=== PATIENT | male | born 1950 | race Caucasian/White ===

== ENCOUNTER → 2016-05-29 | Outpatient (CLI) | payer BC ==
--- NOTE | 2016-05-29 13:50 | REP ---
Urinary tract sonography: History: Calculus of the kidney. Comparison is made with CT abdomen and pelvis from February 02, 2016. Sonographic findings: Scanning at the level of the urinary bladder shows smooth bladder johnson. Prostate appears somewhat prominent and heterogeneous. There are dystrophic calcifications seen in the prostate on the prior CT. Echogenic foci are seen corresponding to these sonographically. By ultrasound, prostate measures 3.8 x 3.0 x 5.3 cm. Bladder johnson are slightly trabeculated. There is no evidence of hydronephrosis. Renal cortical echogenicity pattern is normal bilaterally. No renal mass lesion is seen. Incidental note is made of three cysts in the lower aspect of the right lobe of the liver. The largest of these measures 2.4 x 2.8 x 2.8 cm. This is seen on CT. Right kidney dimensions are 12.0 x 4.6 x 4.7 cm. Left renal dimensions are 14.3 x 6.3 x 5.4 cm. There are innumerable echogenic foci at the cortical medullary junction of both kidneys in the upper and lower poles consistent with numerous intrarenal nephrolithiasis. This corresponds to the CT findings. Impression: Innumerable intrarenal nephrolithiasis bilaterally. No evidence of hydronephrosis. Dystrophic calcifications and enlargement of the prostate. Three simple cysts the right lobe of the liver. Signed by Bong Ly MD 05/29/2016 02:34 P
== END ==
LOC: M RAD 09:26
PROVIDERS: ATTEND Internal Medicine Nephrology
DX: N20.0 Calculus of kidney (principal)

== ENCOUNTER → 2017-09-09 | Outpatient (CLI) | payer MEDICARE ==
[2017-09-09 13:17] LABS: PROSTATIC SPECIFIC AG MONITOR 8.06 NG/ML (< 4.0)
== END ==
LOC: M SMT 10:06
DX: R97.20 Elevated prostate specific antigen [PSA] (principal)
CPT/HCPCS: 84153

== ENCOUNTER → 2017-09-16 | Outpatient (REF) | payer BC, MEDICARE ==
[2017-09-16 14:09] LABS: APPEARANCE, URINE CLEAR (CLEAR); BACTERIA, URINE AUTO NEGATIVE (NEGATIVE); BILIRUBIN, URINE AUTO NEGATIVE (NEGATIVE); BLOOD, URINE BLOOD NEGATIVE (NEGATIVE); COLOR, URINE STRAW (YELLOW); GLUCOSE, URINE (UA) AUTO NEGATIVE (NEGATIVE); KETONE, URINE AUTO NEGATIVE (NEGATIVE); LEUKOCYTE ESTERASE, URINE AUTO NEGATIVE (NEGATIVE); NITRITE, URINE AUTO NEGATIVE (NEGATIVE); PROTEIN, URINE AUTO NEGATIVE (NEGATIVE); RBC, URINE AUTO 0 /HPF (0-3); SPECIFIC GRAVITY URINE AUTO 1.006 (1.002-1.035); SQUAMOUS EPITHELIAL CELL UR AU 0 /HPF (0-6); UROBILINOGEN, URINE AUTO 0.2 mg/dL (0.0-2.0); WBC, URINE AUTO 1 /HPF (0-3)
== END ==
LOC: M SMT 13:16
DX: R97.20 Elevated prostate specific antigen [PSA] (principal)
CPT/HCPCS: 81001

== ENCOUNTER → 2017-09-25 | Outpatient (CLI) | payer MEDICARE ==
[2017-09-25 18:01] LABS: ANION GAP 6 MEQ/L (8-16); BLOOD UREA NITROGEN 22 MG/DL (7-18); CALCIUM LEVEL 9.4 MG/DL (8.8-10.2); CARBON DIOXIDE LEVEL 30 MEQ/L (21-32); CHLORIDE LEVEL 104 MEQ/L (98-107); CREATININE FOR GFR 1.15 MG/DL (0.70-1.30); GLOMERULAR FILTRATION RATE > 60.0 (>49); GLUCOSE, FASTING 107 MG/DL (70-100); POTASSIUM SERUM 4.9 MEQ/L (3.5-5.1); SODIUM LEVEL 140 MEQ/L (136-145)
== END ==
LOC: M SMT 15:16
DX: R97.20 Elevated prostate specific antigen [PSA] (principal)
CPT/HCPCS: 80048

== ENCOUNTER → 2017-10-09 | Outpatient (CLI) | payer MEDICARE ==
[~2017-10-09] MED LIST: PROHANCE 279.3MG/ML 15ML VIAL (A9576) As Ordered; PROHANCE 279.3MG/ML 5ML VIAL (A9576) As Ordered
== END ==
LOC: M RAD 12:06
DX: R97.20 Elevated prostate specific antigen [PSA] (principal)
CPT/HCPCS: A9576

== ENCOUNTER → 2017-10-18 | Outpatient (CLI) | payer MEDICARE | LOC: M SMT PRO 08:15 | DX: C61 Malignant neoplasm of prostate (principal) | CPT/HCPCS: G0416 ==

== ENCOUNTER → 2017-10-23 | Outpatient (CLI) | payer MEDICARE ==
[2017-10-23 13:25] LABS: ANION GAP 8 MEQ/L (8-16); BLOOD UREA NITROGEN 23 MG/DL (7-18); CARBON DIOXIDE LEVEL 30 MEQ/L (21-32); CHLORIDE LEVEL 104 MEQ/L (98-107); GLOMERULAR FILTRATION RATE > 60.0 (>49); GLUCOSE, FASTING 102 MG/DL (70-100); POTASSIUM SERUM 4.3 MEQ/L (3.5-5.1); SODIUM LEVEL 142 MEQ/L (136-145)
== END ==
LOC: M SMT 11:37
DX: C61 Malignant neoplasm of prostate (principal); R91.8 Other nonspecific abnormal finding of lung field
CPT/HCPCS: 80048

== ENCOUNTER → 2017-11-06 | Outpatient (CLI) | payer MEDICARE ==
[~2017-11-06] MED LIST changes: +ISOVUE-370 76% 100ML VIAL (Q9967) As Ordered; -PROHANCE 279.3MG/ML 15ML VIAL (A9576) As Ordered; -PROHANCE 279.3MG/ML 5ML VIAL (A9576) As Ordered
== END ==
LOC: M RAD 09:37
DX: M16.0 Bilateral primary osteoarthritis of hip (principal); M51.34 Other intervertebral disc degeneration, thoracic region; N20.0 Calculus of kidney; K57.30 Diverticulosis of large intestine without perforation or abscess without bleeding; K44.9 Diaphragmatic hernia without obstruction or gangrene; K76.89 Other specified diseases of liver; R91.1 Solitary pulmonary nodule; C61 Malignant neoplasm of prostate
CPT/HCPCS: Q9967

== ENCOUNTER → 2017-12-03 | Outpatient (CLI) | payer MEDICARE ==
[2017-12-03 17:47] LABS: ALBUMIN/GLOBULIN RATIO 1.38 (1.00-1.93); ALKALINE PHOSPHATASE 88 U/L (45-117); ALT/SGPT 36 U/L (12-78); ANION GAP 8 MEQ/L (8-16); AST/SGOT 17 U/L (7-37); BILIRUBIN,TOTAL 0.6 MG/DL (0.2-1.0); BLOOD UREA NITROGEN 19 MG/DL (7-18); CALCIUM LEVEL 9.2 MG/DL (8.8-10.2); CARBON DIOXIDE LEVEL 30 MEQ/L (21-32); CHLORIDE LEVEL 102 MEQ/L (98-107); CREATININE FOR GFR 1.05 MG/DL (0.70-1.30); GLOMERULAR FILTRATION RATE > 60.0 (>49); GLUCOSE, FASTING 139 MG/DL (70-100); POTASSIUM SERUM 4.7 MEQ/L (3.5-5.1); SODIUM LEVEL 140 MEQ/L (136-145); TOTAL PROTEIN 6.9 GM/DL (6.4-8.2)
[2017-12-03 18:09] LABS: APPEARANCE, URINE CLEAR (CLEAR); BACTERIA, URINE AUTO NEGATIVE (NEGATIVE); BILIRUBIN, URINE AUTO NEGATIVE (NEGATIVE); BLOOD, URINE BLOOD NEGATIVE (NEGATIVE); COLOR, URINE STRAW (YELLOW); GLUCOSE, URINE (UA) AUTO NEGATIVE (NEGATIVE); KETONE, URINE AUTO NEGATIVE (NEGATIVE); LEUKOCYTE ESTERASE, URINE AUTO NEGATIVE (NEGATIVE); MUCUS, URINE SMALL (NEGATIVE); NITRITE, URINE AUTO NEGATIVE (NEGATIVE); PROTEIN, URINE AUTO NEGATIVE (NEGATIVE); RBC, URINE AUTO 0 /HPF (0-3); SPECIFIC GRAVITY URINE AUTO 1.006 (1.002-1.035); SQUAMOUS EPITHELIAL CELL UR AU 0 /HPF (0-6); UROBILINOGEN, URINE AUTO 0.2 mg/dL (0.0-2.0); WBC, URINE AUTO 0 /HPF (0-3)
[2017-12-03 18:13] LABS: INR 0.99; PROTHROMBIN TIME 13.2 SECONDS (12.1-14.4)
[2017-12-03 18:14] LABS: PARTIAL THROMBOPLASTIN TIME 33.9 SECONDS (25.4-37.6)
== END ==
LOC: M SMT 14:00
DX: Z01.812 Encounter for preprocedural laboratory examination (principal); C61 Malignant neoplasm of prostate
CPT/HCPCS: 80053

== ENCOUNTER 2017-12-17 10:40 | Inpatient (IN) | payer MEDICARE ==
[2017-12-17 11:04] LABS: HEMATOCRIT 48.2 % (42.0-52.0); HEMOGLOBIN 16.8 g/dl (13.5-17.5); MEAN CORPUSCULAR HEMOGLOBIN 31.8 pg (27.0-33.0); MEAN CORPUSCULAR HGB CONC 34.9 g/dl (32.0-36.5); MEAN CORPUSCULAR VOLUME 91.3 fl (80.0-96.0); PLATELET COUNT, AUTOMATED 231 10^3/uL (150-450); RED BLOOD COUNT 5.28 10^6/uL (4.30-6.10); RED CELL DISTRIBUTION WIDTH 12.2 % (11.5-14.5); WHITE BLOOD COUNT 5.7 10^3/uL (4.0-10.0)
[2017-12-17] MEDS ORDERED: PROPOFOL 200 MG/20 ML VIAL As Ordered (18:52)
[2017-12-17] MEDS ORDERED: LIDOCAINE 2% INJ 100 MG/5 ML SDV (FOR ANES.) As Ordered (18:52)
[2017-12-17] MEDS ORDERED: fentaNYL 250 MCG/5 ML INJECTION (J3010) As Ordered (18:52)
[2017-12-17] MEDS ORDERED: ROCURONIUM BROMIDE 50 MG/5 ML VIAL As Ordered ×3 (18:52→22:18)
[2017-12-17] MEDS ORDERED: MIDAZOLAM INJ 2 MG/2 ML VIAL (J2250) As Ordered (18:53)
[2017-12-17] MEDS ORDERED: dexameTHASONE 4 MG/ML 1ML VIAL (J1100) As Ordered (19:44)
[2017-12-17] MEDS ORDERED: ONDANSETRON 4MG/2ML VIAL (J2405) As Ordered (20:33)
[2017-12-17] MEDS ORDERED: GLYCOPYRROLATE INJ 0.2 MG/ML 2 ML VIAL As Ordered (20:34)
[2017-12-17] MEDS ORDERED: METOCLOPRAMIDE INJ 10MG/2ML VIAL (J2765) As Ordered (20:34)
[2017-12-17] MEDS ORDERED: HYDROmorphone HCL 2 MG/ML 1ML VIAL (J1170) As Ordered (20:36)
[2017-12-18] MEDS ORDERED: MORPHINE 10 MG/ML 1ML VIAL (J2270) IV
[2017-12-18] MEDS ORDERED: PERCOCET 5MG/325MG TAB PO
[2017-12-18] MEDS ORDERED: ONDANSETRON 4MG/2ML VIAL (J2405) IV
[2017-12-18] MEDS ORDERED: fentaNYL 100 MCG/2 ML INJECTION (J3010) As Ordered (00:16)
[2017-12-18] MEDS: fentaNYL 100 MCG/2 ML INJECTION (J3010) IV ×4 (00:19→00:40)
[2017-12-18] MEDS ORDERED: MORPHINE 4 MG/ML 1ML VIAL/SYRINGE (J2270) IV (00:45)
[2017-12-18 00:51] LABS: HEMATOCRIT 46.4 % (42.0-52.0); HEMOGLOBIN 15.6 g/dl (13.5-17.5); MEAN CORPUSCULAR HEMOGLOBIN 32.2 pg (27.0-33.0); MEAN CORPUSCULAR HGB CONC 33.6 g/dl (32.0-36.5); MEAN CORPUSCULAR VOLUME 95.7 fl (80.0-96.0); PLATELET COUNT, AUTOMATED 230 10^3/uL (150-450); RED BLOOD COUNT 4.85 10^6/uL (4.30-6.10); RED CELL DISTRIBUTION WIDTH 12.4 % (11.5-14.5); WHITE BLOOD COUNT 15.8 10^3/uL (4.0-10.0)
[2017-12-18] MEDS ORDERED: ALBUTEROL 90 MCG/ACT 8GM HFA INHALER INH (01:00)
[2017-12-18 01:09] LABS: ANION GAP 9 MEQ/L (8-16); BLOOD UREA NITROGEN 17 MG/DL (7-18); CALCIUM LEVEL 8.2 MG/DL (8.8-10.2); CARBON DIOXIDE LEVEL 26 MEQ/L (21-32); CHLORIDE LEVEL 105 MEQ/L (98-107); GLOMERULAR FILTRATION RATE > 60.0 (>49); GLUCOSE, FASTING 197 MG/DL (70-100); POTASSIUM SERUM 4.7 MEQ/L (3.5-5.1); SODIUM LEVEL 140 MEQ/L (136-145)
[2017-12-18] MEDS ORDERED: KCL 20MEQ IN D5/.45NACL 1000ML As Ordered (01:37)
[2017-12-18] MEDS: oxyCODONE 5MG TAB PO (01:42)
[2017-12-18] MEDS: KCL 20MEQ IN D5/0.45NS 1000ML 1,000 ML IV (01:42)
[2017-12-18] MEDS: LR 1,000 ML IV ×2 (02:09)
[2017-12-18] MEDS: D5W/0.45% SODIUM CHLORIDE 1,000 ML IV ×2 (02:12→11:47)
[2017-12-18] MEDS: ACETAMINOPHEN 650MG ER TAB (TYLENOL ARTHRITIS) PO ×2 (05:31→14:14)
[2017-12-18] MEDS: CIPROFLOXACIN 500 MG TAB PO ×2 (05:31→17:16)
[2017-12-18 06:07] LABS: HEMATOCRIT 45.6 % (42.0-52.0); HEMOGLOBIN 15.1 g/dl (13.5-17.5); MEAN CORPUSCULAR HEMOGLOBIN 31.3 pg (27.0-33.0); MEAN CORPUSCULAR HGB CONC 33.1 g/dl (32.0-36.5); MEAN CORPUSCULAR VOLUME 94.6 fl (80.0-96.0); PLATELET COUNT, AUTOMATED 205 10^3/uL (150-450); RED BLOOD COUNT 4.82 10^6/uL (4.30-6.10); RED CELL DISTRIBUTION WIDTH 12.1 % (11.5-14.5); WHITE BLOOD COUNT 13.3 10^3/uL (4.0-10.0)
[2017-12-18] MEDS: ONDANSETRON 4MG/2ML VIAL (J2405) IV (06:28)
[2017-12-18 06:30] LABS: ANION GAP 8 MEQ/L (8-16); BLOOD UREA NITROGEN 16 MG/DL (7-18); CALCIUM LEVEL 8.3 MG/DL (8.8-10.2); CARBON DIOXIDE LEVEL 28 MEQ/L (21-32); CHLORIDE LEVEL 105 MEQ/L (98-107); CREATININE FOR GFR 1.26 MG/DL (0.70-1.30); GLOMERULAR FILTRATION RATE > 60.0 (>49); GLUCOSE, FASTING 168 MG/DL (70-100); POTASSIUM SERUM 4.2 MEQ/L (3.5-5.1); SODIUM LEVEL 141 MEQ/L (136-145)
[2017-12-18] MEDS: SYMBICORT 160/4.5MCG INHALER 6GM INH (07:52)
[2017-12-18] MEDS: PANTOPRAZOLE 40MG INJ (PROTONIX) (C9113) IV (08:38)
[2017-12-18] MEDS: hydroCHLOROthiazide 12.5 MG CAPSULE PO ×2 (08:38→17:16)
== END 2017-12-18 17:42 | disposition home or self-care (01) | DRG 708 ==
LOC: M OR 10:40 → M MSPAV 12-18 01:15
PROC: 0VT04ZZ Resection of Prostate, Percutaneous Endoscopic Approach (ICD-10-PCS; principal; 2017-12-17 19:18)
PROC: 0VT34ZZ Resection of Bilateral Seminal Vesicles, Percutaneous Endoscopic Approach (ICD-10-PCS; 2017-12-17 19:18)
PROC: 07BC4ZX Excision of Pelvis Lymphatic, Percutaneous Endoscopic Approach, Diagnostic (ICD-10-PCS; 2017-12-17 19:18)
PROC: 8E0W4CZ Robotic Assisted Procedure of Trunk Region, Percutaneous Endoscopic Approach (ICD-10-PCS; 2017-12-17 19:18)
DX: C61 Malignant neoplasm of prostate (principal); Z79.82 Long term (current) use of aspirin; Z79.899 Other long term (current) drug therapy; Z87.442 Personal history of urinary calculi; K21.9 Gastro-esophageal reflux disease without esophagitis; J45.909 Unspecified asthma, uncomplicated; Z91.041 Radiographic dye allergy status

== ENCOUNTER → 2018-01-01 | Outpatient (REF) | payer MEDICARE ==
[2018-01-01 14:25] LABS: APPEARANCE, URINE CLEAR (CLEAR); BACTERIA, URINE AUTO NEGATIVE (NEGATIVE); BILIRUBIN, URINE AUTO NEGATIVE (NEGATIVE); BLOOD, URINE BLOOD 2+ (NEGATIVE); COLOR, URINE YELLOW (YELLOW); GLUCOSE, URINE (UA) AUTO NEGATIVE (NEGATIVE); KETONE, URINE AUTO NEGATIVE (NEGATIVE); LEUKOCYTE ESTERASE, URINE AUTO TRACE (NEGATIVE); MUCUS, URINE SMALL (NEGATIVE); NITRITE, URINE AUTO NEGATIVE (NEGATIVE); PROTEIN, URINE AUTO NEGATIVE (NEGATIVE); RBC, URINE AUTO 114 /HPF (0-3); SPECIFIC GRAVITY URINE AUTO 1.016 (1.002-1.035); SQUAMOUS EPITHELIAL CELL UR AU 0 /HPF (0-6); UROBILINOGEN, URINE AUTO 0.2 mg/dL (0.0-2.0); WBC, URINE AUTO 4 /HPF (0-3)
== END ==
LOC: M SMT 13:43
DX: C61 Malignant neoplasm of prostate (principal)
CPT/HCPCS: 81001

== ENCOUNTER → 2018-01-22 | Outpatient (CLI) | payer MEDICARE ==
[2018-01-22 14:53] LABS: PROSTATIC SPECIFIC AG MONITOR 0.07 NG/ML (< 4.0)
== END ==
LOC: M SMT 07:59
DX: C61 Malignant neoplasm of prostate (principal)
CPT/HCPCS: 84153

== ENCOUNTER → 2018-03-21 | Outpatient (CLI) | payer MEDICARE ==
[2018-03-21 17:38] LABS: PROSTATIC SPECIFIC AG MONITOR 0.1 NG/ML (< 4.0)
== END ==
LOC: M SMT 13:56
DX: Z85.46 Personal history of malignant neoplasm of prostate (principal)
CPT/HCPCS: 84153

== ENCOUNTER → 2018-05-28 | Outpatient (CLI) | payer MEDICARE ==
[~2018-05-28] MED LIST changes: +ASPI1TAB PO; +CIPR1TAB20 PO; +HYDR25TAB PO; -ISOVUE-370 76% 100ML VIAL (Q9967) As Ordered; +MAGO400T PO; +MULT1TAB10 PO; +NEXI20CA PO; +POTA10808 PO; +SYMB16INH INH; +TYLE650T35 PO; +VENTAER INH
== END ==
LOC: M SMT 11:41
PROVIDERS: ATTEND Urology
DX: R97.21 Rising PSA following treatment for malignant neoplasm of prostate (principal)

== ENCOUNTER → 2018-07-16 | Outpatient (CLI) | payer MEDICARE | LOC: M SMT 08:06 | PROVIDERS: ATTEND Urology | DX: C61 Malignant neoplasm of prostate (principal); R97.21 Rising PSA following treatment for malignant neoplasm of prostate ==

== ENCOUNTER → 2018-08-19 | Outpatient (CLI) | payer MEDICARE ==
[~2018-08-19] MED LIST changes: -ASPI1TAB PO; +ASPI81TA26 PO
== END ==
LOC: M SMT 10:08
PROVIDERS: ATTEND Urology
DX: C61 Malignant neoplasm of prostate (principal)

== ENCOUNTER → 2018-09-09 | Outpatient (CLI) | payer MEDICARE ==
--- NOTE | 2018-09-10 13:43 | RADONC ---
RADIATION ONCOLOGY CONSULTATION NOTE DATE: 09/09/2018 CHART NUMBER: [id number] DIAGNOSIS: Prostate cancer. STAGE: Stage III C, [id number], Fariha score 9 (4+5), grade group 5, PSA 8.06. ECOG PERFORMANCE STATUS: 0. CONSULTATION NOTE: Mr. White is a very pleasant 68-year-old white male with the diagnosis of what appears to be a stage III C, [id number] poorly differentiated [place] score 9 (4+5) adenocarcinoma of the prostate who is presenting to us today status post robotic assisted radical prostatectomy and bilateral pelvic lymph node dissection with a rising PSA level post surgery for consideration of postoperative radiation therapy in an attempt to increase the likelihood of achieving local control and cure. HISTORY OF PRESENT ILLNESS: The patient was in his usual state of health and a routine PSA was done on 10/11/2014, which was 2.61. A repeat PSA done on 12/21/2015 had jumped to 4.60 and a PSA done on 08/09/2017 had risen to 8.06. On 10/18/2017, the patient underwent prostatic needle biopsy and pathology revealed a poorly differentiated adenocarcinoma Fariha score 8 (4+4). On 12/18/2017, the patient underwent a robotic-assisted radical prostatectomy and bilateral pelvic lymph node sampling with Dr. Cloud. Pathology revealed a [place] score 9 (4+5) adenocarcinoma of the prostate involving most of the right prostate and focally in the left apical areas of the prostate. The tumor extended to the base of the right seminal vesicle. Both seminal vesical resection margins were negative. One right pelvic lymph node was sampled and negative for malignancy and one to two pelvic lymph nodes were sampled on the left and negative for malignancy. Lymphatic space invasion was focally suspicious. Following surgery, the patient was followed with PSA levels and a PSA level done on 01/22/2018 was 0.07. On 03/21/2018, it had risen to 0.1. On 05/18/2018, it was 0.13. On 07/16/2018, it had risen to 0.18. On 08/19/2018, it had risen to 0.19. The patient is now being referred to us for consideration of postoperative radiation therapy in attempt to achieve local control. PAST MEDICAL HISTORY: The patient's past medical history is positive for kidney stones, asthma and a history of a hemorrhoidectomy. ALLERGIES: The patient is allergic to CT DYE and SHELLFISH. SOCIAL HISTORY The patient does not smoke cigarettes. He does not abuse alcohol. FAMILY HISTORY: The patient's family history is negative for prostate cancer or other malignancies. REVIEW OF SYSTEMS: The patient's review of systems is positive for some urinary incontinence and impotency but is otherwise noncontributory. Denies nausea, vomiting, fevers, chills, night sweats, diplopia, headaches, anxiety or depression, anorexia, weight loss, visual disturbances, chest pain, urinary or bowel difficulties, bone pain, or neurological problems. PHYSICAL EXAMINATION: The patient is a well-developed, well-nourished male in no acute distress. HEENT exam is normocephalic, atraumatic. Extraocular movements are intact. There is no palpable cervical, supraclavicular, infraclavicular, axillary, or inguinal lymphadenopathy present. Lungs are clear to auscultation and percussion. Heart has a regular rate and rhythm. Abdomen is benign with no hepatosplenomegaly, masses, or tenderness. Rectal examination reveals a normal anal sphincter tone. His prostate bed is smooth with no evidence of nodularity. Skeletal examination reveals no tenderness to pressure or percussion of the bony skeleton. Extremities reveal no clubbing, cyanosis, or edema. Neurologic exam is grossly intact, as is the remainder of the physical examination. ASSESSMENT: Clearly, the patient is a candidate for external beam radiation therapy and I have so informed him. I have discussed with the patient in detail the potential benefits as well as possible acute and chronic sequelae of external beam radiation therapy. We discussed logistics of treatment planning, simulation and subsequent fractionated daily radiation treatments. I have scheduled the patient for simulation this week, and radiation treatments will follow. Thank you for allowing us to participate in the care of this very pleasant gentleman. If I could be of any further assistance or provide you with any information, please free to contact me anytime. As always, warm regards, Elie Chanel MD cc: DO John Fuentes MD edited: 09/26/2018 1034 tkf MTDD
== END ==
LOC: M ONCR 09:00
PROVIDERS: ATTEND Radiology Radiation Oncology
DX: C61 Malignant neoplasm of prostate (principal)

== ENCOUNTER → 2018-10-10 | Outpatient (RCR) | payer MEDICARE ==
[2018-09-10 11:19] LABS: HEMATOCRIT 46.5 % (42.0-52.0); HEMOGLOBIN 15.4 g/dl (13.5-17.5); LYMPH % 27.4 % (24.0-44.0); MEAN CORPUSCULAR HEMOGLOBIN 32.8 pg (27.0-33.0); MEAN CORPUSCULAR HGB CONC 33.1 g/dl (32.0-36.5); NEUTROPHILS # 2.9 10^3/uL (1.8-7.7); NEUTROPHILS % 62.8 % (36.0-66.0); RED BLOOD COUNT 4.7 10^6/uL (4.30-6.10); WHITE BLOOD COUNT 4.6 10^3/uL (4.0-10.0)
--- NOTE | 2018-09-11 10:09 | RADONC ---
RADIATION ONCOLOGY SIMULATION NOTE DATE OF SERVICE: 09/10/2018 CHART NUMBER: [id number]. SIMULATION NOTE: Mr. White was taken to the CT scan for CT simulation of his prostate bed field. CT was accomplished without difficulty or discomfort. Radiation treatment planning is underway, and radiation treatments will begin subsequently. An immobilization device was created and will be used throughout the course of treatment. It was created without difficulty or discomfort. I was physically present throughout the course of CT simulation.
--- NOTE | 2018-09-22 10:55 | RADONC ---
RADIATION ONCOLOGY PROGRESS NOTE DATE: 09/22/2018 CHART NUMBER: [id number] Mr. White, with a diagnosis of adenocarcinoma of prostate, is currently receiving local regional radiotherapy. His dose is 720 cGy of an anticipated 6660 cGy and treatments are going well. REVIEW OF SYSTEMS: He denies any nausea, vomiting, diarrhea, dysuria, hematuria or blood per rectum. His energy level is satisfactory and he is able to maintain most day-to-day activities without any alteration of his lifestyle. Skin irritation is denied. The remainder of the review of systems is noncontributory. PHYSICAL EXAMINATION: Reveals a healthy-appearing male who has no acute distress. The remainder of the physical examination is unchanged. IMPRESSION: Tolerating therapy well. PLAN: Treatments to continue. MTDD
--- NOTE | 2018-09-29 09:45 | RADONC ---
RADIATION ONCOLOGY PROGRESS NOTE: DATE: 09/29/2018 CHART NUMBER: [id number] Mr. White is presently at a dose of 1620 cGy to his prostate bed and is tolerating treatments quite well at this point with no complaints related to his radiation therapy. REVIEW OF SYSTEMS: The patient's review of systems is noncontributory. Denies nausea, vomiting, fevers, chills, night sweats, diplopia, headaches, anxiety or depression, anorexia, weight loss, visual disturbances, chest pain, urinary or bowel difficulties, bone pain, or neurological problems. PHYSICAL EXAMINATION: The patient's skin is in good condition with no evidence of radiation change present. There is no moist or dry desquamation. The remainder of his physical exam remains unchanged. Mr. White is tolerating treatments quite well and radiation will continue as scheduled.
--- NOTE | 2018-10-07 08:59 | RADONC ---
RADIATION ONCOLOGY PROGRESS NOTE DATE OF SERVICE: 10/07/2018 CHART NUMBER: [id number]. PROGRESS NOTE: Mr. White is presently at a dose of 2520 cGy to his prostate bed and is tolerating treatments quite well at this point with no complaints related to his radiation therapy. He is having no urinary or bowel difficulties and no bone pain. The patient's review of systems is noncontributory. He denies nausea, vomiting, fevers, chills, night sweats, diplopia, headaches, anxiety or depression, anorexia, weight loss, visual disturbances, chest pain, urinary or bowel difficulties, bone pain, or neurological problems. PHYSICAL EXAMINATION: The patient's skin is in good condition with no evidence of moist or dry desquamation. The remainder of his physical exam remains unchanged. Ms. White is tolerating treatments quite well, and radiation will continue as scheduled.
== END ==
LOC: M ONCR 09-10 10:43
PROVIDERS: ATTEND Radiology Radiation Oncology
DX: C61 Malignant neoplasm of prostate (principal)

== ENCOUNTER 2018-11-07 08:08 | Outpatient (RCR) | payer MEDICARE ==
--- NOTE | 2018-10-13 12:23 | RADONC ---
RADIATION ONCOLOGY PROGRESS NOTE DATE: 10/13/2018 CHART NUMBER: [id number] Mr. White is currently receiving local regional radiotherapy to the prostate bed and his dose thus far his 3240 cGy of an anticipated 6660 cGy. He has no specific complaints referable to his disease or to his treatments. REVIEW OF SYSTEMS: The patient denies any nausea, vomiting, diarrhea, dysuria, hematuria or blood per rectum. His energy level is such that he is able to maintain most day-to-day activities without any alteration of his lifestyle. Skin irritation is denied. He also denies any other anxiety, depression, headaches, diplopia, night sweats, fevers or chills. PHYSICAL EXAMINATION: The patient's skin shows no changes thus far, specifically no evidence of moist or dry desquamation. The remainder of the physical examination is unchanged. IMPRESSION: Tolerating therapy well. PLAN: Treatments to continue.
--- NOTE | 2018-10-20 14:22 | RADONC ---
RADIATION ONCOLOGY PROGRESS NOTE DATE: 10/20/2018 CHART NUMBER: [id number] Mr. White is presently at a dose of 4140 cGy to his prostate bed and is tolerating treatments quite well at this point with no complaints related to his radiation therapy. He is having no urinary or bowel difficulties and no bone pain. The patient's review of systems is noncontributory. He denies nausea, vomiting, fevers, chills, night sweats, diplopia, headaches, anxiety or depression, anorexia, weight loss, visual disturbances, chest pain, urinary or bowel difficulties, bone pain, or neurological problems. PHYSICAL EXAMINATION: The patient's skin is in good condition with no evidence of radiation change present. There is no moist or dry desquamation. The remainder of his physical exam remains unchanged. Mr. White is tolerating treatments quite well, and radiation will continue as scheduled.
--- NOTE | 2018-10-28 07:03 | RADONC ---
RADIATION ONCOLOGY PROGRESS NOTE DATE: 10/27/2018 CHART #: [id number] Mr. White is presently at a dose of 5040 cGy to his prostate bed and is tolerating treatments quite well at this point with no complaints related to his radiation therapy. He is having no urinary or bowel difficulties and no bone pain. REVIEW OF SYSTEMS: The patient's review of systems is noncontributory. Denies nausea, vomiting, fevers, chills, night sweats, diplopia, headaches, anxiety or depression, anorexia, weight loss, visual disturbances, chest pain, urinary or bowel difficulties, bone pain, or neurological problems. PHYSICAL EXAMINATION: The patient's skin is in good condition with no evidence of radiation change present. There is no moist or dry desquamation. The remainder of his physical exam remains unchanged. Mr. White is tolerating treatments quite well and radiation will continue as scheduled.
--- NOTE | 2018-11-04 09:29 | RADONC ---
RADIATION ONCOLOGY PROGRESS NOTE: DATE: 11/03/2018 CHART NUMBER: [id number] Mr. White with the diagnosis of adenocarcinoma of the prostate is currently at a dose of 5940 cGy of an anticipated 6660 cGy. Treatments are going well as he denies any major side effects. REVIEW OF SYSTEMS: He specifically denies any nausea, vomiting, diarrhea, dysuria, hematuria or blood per rectum. He does experience some occasional difficulty with completely emptying his bladder and has to frequently eliminate especially at night. His energy level is such that he is able to maintain most day-to-day activities without any alteration of his lifestyle. He denies any major side effects related to his disease or to his treatments. EXAMINATION FINDINGS: He is a well-nourished, well-developed male in no acute distress. There is no palpable peripheral lymphadenopathy. No skin changes are noted. The remainder of the physical examination is unchanged. IMPRESSION: Tolerating therapy well. PLAN: Treatments to continue.
--- NOTE | 2018-11-07 10:23 | RADONC ---
RADIATION ONCOLOGY THERAPY TREATMENT SUMMARY DATE: 11/07/2018 CHART NUMBER: [id number] DIAGNOSIS: Prostate cancer. STAGE: III C, [id number], Fariha score 9 (4+5), grade group 5, PSA 8.06. ECOG PERFORMANCE STATUS: 0 SUMMARY: Plan of radiotherapy: Local regional radiotherapy to the prostate bed to prevent a local regional recurrence. Date radiotherapy started: 09/17/2018. Date radiotherapy concluded: 11/07/2018. Dose: The patient received an initial 4500 cGy administered in 25 fractions over 35 elapsed days. A 15 MV photon beam was utilized for treatment delivery and prior to treatment delivery localization was accomplished upon our CT simulator where upon treatment portals were defined by the use of multileaf collimators. As stated, a three-dimensional conformal radiotherapy was employed as the technique of choice. After the completion of 4500 cGy, an additional 2160 cGy were given to the tumor bed with reduced treatment volumes. This brought the ultimate dose to the aforementioned 6660 cGy in a total of 37 fractions over 51 elapsed days. Again, the boost area was treated with a 15 MV photon beam 100 cm SAD isocenter technique. Status of tumor: There was no evidence of progressive local regional recurrence during his course of radiotherapy nor was there any clinical evidence of distant metastatic spread. Tolerance: In general, treatments were well tolerated as he denied any significant nausea, vomiting, diarrhea, dysuria, hematuria, or blood per rectum. DISPOSITION: Return to clinic in 1 month for post radiotherapy followup visit, and he was advised to return to his referring physicians as per their directions and instructions. Thank you for allowing us the opportunity of participation in the management of this very fine gentleman, most sincerely. cc: DO John Fuentes MD
== END 2018-11-09 ==
LOC: M ONCR 08:08
PROVIDERS: ATTEND Radiology Radiation Oncology
DX: C61 Malignant neoplasm of prostate (principal)

== ENCOUNTER → 2018-12-03 | Outpatient (CLI) | payer MEDICARE | LOC: M SMT 10:01 | PROVIDERS: ATTEND Radiology Radiation Oncology | DX: C61 Malignant neoplasm of prostate (principal) ==

== ENCOUNTER → 2018-12-10 | Outpatient (CLI) | payer MEDICARE ==
--- NOTE | 2018-12-11 06:42 | RADONC ---
RADIATION ONCOLOGY FOLLOW-UP NOTE DATE: 12/10/2018 CHART NUMBER: [id number] DIAGNOSIS: Prostate cancer. STAGE: IIIC, T3b, N0, M0, [place] score 9 (4-5), grade group 5, PSA 8.06. ECOG PERFORMANCE STATUS: 0 FOLLOW-UP NOTE: Mr. White is a very pleasant 68-year-old white male with the diagnosis of a stage IIIC, T3b, N0, M0 poorly differentiated Fariha score 9 (4-5) adenocarcinoma of the prostate who is presenting to us today for routine followup visit 1 month post completion of external beam radiation therapy. The patient presents today reporting that he is doing quite well with no complaints at this time related to his radiation therapy disease. He has no urinary or bowel difficulties and no bone pain. REVIEW OF SYSTEMS: The patient's review of systems is noncontributory. He denies nausea, vomiting, fevers, chills, night sweats, diplopia, headaches, anxiety or depression, anorexia, weight loss, visual disturbances, chest pain, urinary or bowel difficulties, bone pain or neurological problems. PHYSICAL EXAMINATION: The patient is a well-developed, well-nourished male in no acute distress. HEENT exam is normocephalic, atraumatic. Extraocular movements are intact. There is no palpable cervical, supraclavicular, infraclavicular, axillary, or inguinal lymphadenopathy present. Lungs are clear to auscultation and percussion. Heart has a regular rate and rhythm. Abdomen is benign with no hepatosplenomegaly, masses, or tenderness. Rectal examination reveals a normal anal sphincter tone. His prostate is smooth with no evidence of nodularity. Skeletal examination reveals no tenderness to pressure or percussion of the bony skeleton. Extremities reveal no clubbing, cyanosis, or edema. Neurologic exam is grossly intact as is the remainder of the physical examination. ASSESSMENT: The patient is clinically DEANNA at this time and will be seen by us again in 6 months for further followup. He will also continue to be followed by his other physicians as well. The patient reports that he does not have an appointment yet with his urologist Dr. Hernandez and I have asked him to contact Dr. Hernandez's office to set up a convenient routine follow-up in his office as well. Dr. Hernandez may be addressing his hormonal injections at follow-up visit. cc: DO John Fuentes MD
== END ==
LOC: M ONCR 09:05
PROVIDERS: ATTEND Radiology Radiation Oncology
DX: C61 Malignant neoplasm of prostate (principal)

== ENCOUNTER → 2019-05-28 | Outpatient (CLI) | payer MEDICARE | LOC: M LAB 16:03 | PROVIDERS: ATTEND Radiology Radiation Oncology | DX: C61 Malignant neoplasm of prostate (principal) ==

== ENCOUNTER → 2019-06-10 | Outpatient (CLI) | payer MEDICARE ==
--- NOTE | 2019-06-11 10:43 | RADONC ---
RADIATION ONCOLOGY FOLLOWUP NOTE DATE OF SERVICE: 06/10/2019 CHART NUMBER: [id number]. DIAGNOSIS: Prostate cancer. STAGE: IIIC, A0qV1K5, Fariha score 9 (4-5), grade group 5, PSA 8.06. ECOG performance status: 0. FOLLOWUP NOTE: Mr. White is a very pleasant 69-year-old white male with the diagnosis of a stage IIIC, [id number] poorly differentiated Fariha score 9 (4-5) adenocarcinoma of the prostate who is presenting to us today for routine followup visit 7 months postcompletion of external beam radiation therapy. The patient presents today reporting that he is doing quite well with no complaints related to his radiation therapy or disease. He is having no urinary or bowel difficulties. No bone pain. REVIEW OF SYSTEMS: The patient's review of systems is noncontributory. He denies nausea, vomiting, fevers, chills, night sweats, diplopia, headaches, anxiety or depression, anorexia, weight loss, visual disturbances, chest pain, urinary or bowel difficulties, bone pain, or neurological problems. PHYSICAL EXAMINATION: The patient is a well-developed, well-nourished male in no acute distress. HEENT examination is normocephalic, atraumatic. Extraocular movements are intact. There is no palpable cervical, supraclavicular, infraclavicular, axillary, or inguinal lymphadenopathy present. Lungs are clear to auscultation and percussion. Heart has a regular rate and rhythm. Abdomen is benign with no hepatosplenomegaly, masses, or tenderness. Rectal examination reveals a normal anal sphincter tone. His prostate bed is smooth with no evidence of nodularity. Skeletal examination reveals no tenderness to pressure or percussion of the bony skeleton. Extremities reveal no clubbing, cyanosis, or edema. Neurologic examination is grossly intact, as is the remainder of the physical examination. ASSESSMENT The patient is clinically DEANNA at this time. He is continuing his close followup with his urologist, Dr. John Hernandez. In light of that, I am discharging him from my followup except on a p.r.n. basis. cc: DO John Fuentes MD
== END ==
LOC: M ONCR 08:46
PROVIDERS: ATTEND Radiology Radiation Oncology
DX: C61 Malignant neoplasm of prostate (principal)

== ENCOUNTER → 2019-07-08 | Outpatient (CLI) | payer MEDICARE | LOC: M PLALAB 11:38 | PROVIDERS: ATTEND Urology | DX: C61 Malignant neoplasm of prostate (principal) ==

== ENCOUNTER → 2019-11-06 | Outpatient (CLI) | payer MEDICARE | LOC: M PLALAB 07:56 | PROVIDERS: ATTEND Urology | DX: C61 Malignant neoplasm of prostate (principal) ==

== ENCOUNTER → 2020-01-12 | Outpatient (CLI) | payer MEDICARE ==
[~2020-01-12] MED LIST changes: +ACET-907 PO; +ACET650T61 PO; +ALLO100T PO; +ASPI-161 PO; +ASPI81TA86 PO; +CEFD1CAP8 PO; +CHLO125TA PO; +FLOM0.4C39 PO; +MAGN400T3 PO; +PROAAER10 INH; +PYRI1TAB5 PO; -TYLE650T35 PO; +VITMTA PO
== END ==
LOC: M PLALAB 08:00
PROVIDERS: ATTEND Urology
DX: C61 Malignant neoplasm of prostate (principal)

== ENCOUNTER → 2020-01-19 | Outpatient (REF) | payer MEDICARE ==
[2020-01-19 18:40] LABS: APPEARANCE, URINE CLEAR (CLEAR); BACTERIA, URINE AUTO NEGATIVE (NEGATIVE); BILIRUBIN, URINE AUTO NEGATIVE (NEGATIVE); BLOOD, URINE BLOOD NEGATIVE (NEGATIVE); COLOR, URINE YELLOW (YELLOW); GLUCOSE, URINE (UA) AUTO NEGATIVE (NEGATIVE); KETONE, URINE AUTO NEGATIVE (NEGATIVE); LEUKOCYTE ESTERASE, URINE AUTO NEGATIVE (NEGATIVE); NITRITE, URINE AUTO NEGATIVE (NEGATIVE); PROTEIN, URINE AUTO NEGATIVE (NEGATIVE); RBC, URINE AUTO 1 /HPF (0-3); SPECIFIC GRAVITY URINE AUTO 1.008 (1.002-1.035); SQUAMOUS EPITHELIAL CELL UR AU 0 /HPF (0-6); UROBILINOGEN, URINE AUTO 0.2 mg/dL (0.0-2.0); WBC, URINE AUTO 9 /HPF (0-3)
== END ==
LOC: M SMT 17:21
PROVIDERS: ATTEND Urology
DX: R30.0 Dysuria (principal)
CPT/HCPCS: 51798; 81001; 87086; G0463

== ENCOUNTER 2020-02-02 03:17 | Observation (INO) | payer MEDICARE ==
[~2020-02-02] VITALS: Ht 177.8 cm; Wt 91.3 kg
[~2020-02-02 03:17] MED LIST changes: -ACET-907 PO; -ALLO100T PO; -ASPI-161 PO; -ASPI81TA86 PO; -CEFD1CAP8 PO; -CHLO125TA PO; -FLOM0.4C39 PO; -MAGN400T3 PO; -PROAAER10 INH; -PYRI1TAB5 PO; -VITMTA PO
[2020-02-02] MEDS ORDERED: CHLO125TA PO (03:33)
[2020-02-02] MEDS ORDERED: ALLO100T PO (03:33)
[2020-02-02] MEDS ORDERED: ASPI81TA86 PO (03:33)
[2020-02-02] MEDS ORDERED: MAGN400T3 PO (04:36)
[2020-02-02] MEDS ORDERED: VITMTA PO (04:36)
[2020-02-02] MEDS ORDERED: POTA10808 PO (04:36)
[2020-02-02] MEDS ORDERED: SYMB16INH INH (04:36)
[2020-02-02] MEDS ORDERED: PYRI1TAB5 PO (04:36)
[2020-02-02] MEDS ORDERED: ACET-907 PO (04:36)
[2020-02-02] MEDS ORDERED: ASPI-161 PO (04:36)
[2020-02-02] MEDS ORDERED: PROAAER10 INH (04:36)
[2020-02-02] MEDS ORDERED: ALBUTEROL 90 MCG/ACT 8GM HFA INHALER INH PRN (04:45)
[2020-02-02] MEDS ORDERED: MOM 30ML SUSPENSION UDC PO PRN (04:45)
[2020-02-02] MEDS ORDERED: ACETAMINOPHEN TAB 650MG DOSE (2X325MG) PO PRN (04:45)
[2020-02-02] MEDS ORDERED: KETOROLAC 30 MG/ML 1ML VIAL IV PRN (05:15)
[2020-02-02] MEDS ORDERED: MORPHINE 2 MG/ML 1ML VIAL (J2270) IV PRN (05:15)
[2020-02-02] MEDS: NS 1,000 ML IV SCH ×2 (05:19→15:16)
--- NOTE | 2020-02-02 05:21 | HPEPDOC ---
[facility] Medical History & Physical Date of Admission Feb 02, 2020 Date of Service: Feb 02, 2020 Primary Care Physician: REED ADAM [facility] Attending Physician: DORIE JARRETT MD History and Physical CHIEF COMPLAINT: R flank pain, transfer from [facility] HISTORY OF PRESENT ILLNESS: Ángel White is a 69 YO M with history of prostate cancer and nephrolithiasis who presents as transfer from [facility] for R flank pain present for 1 week. The patient reports the pain started at the small of his back on the R side and progressively worsened to his R flank. He also noticed blood-tinged urine for the past several days. He states that he notices roxana blood and has pain at the end of his urination. His pain is rated as 10/10. He has tried taking Tylenol which did not relieve his pain. Nothing worsens the pain. He reports nausea, but no vomiting. Had one episode of diarrhea this past week. At [place], he was given 1 dose of Zosyn, 1L and 500cc NS bolus, Morphine and Toradol. A CT abd/pelvis found 3mm urinary calculus in the R distal ureter. There is mild obstruction and mild hydronephrosis of the R kidney. Urology (Dr. Virk) was contacted and will see the patient in the morning. PAST MEDICAL HISTORY: 1. 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 History of multiple kidney stones over 40 years, unk etiology (Pt. of Dr. Hernandez) 3. Asthma PAST SURGICAL HISTORY: 1. Robotic radical prostatectomy and bilateral pelvic LN sampling (Dr. Cloud, 2018) 2. Hemorrhoidectomy SOCIAL HISTORY: Never smoker, no EtOH or other illicit drugs FAMILY HISTORY: noncontributory ALLERGIES: Please see below. REVIEW OF SYSTEMS: CONSTITUTIONAL: Reports intentional weight loss, no fevers/chills HEENT: denies vision changes CARDIOVASCULAR: denies chest pain, denies palpitations RESPIRATORY: denies SOB, no dyspnea on exertion GASTROINTESTINAL: denies abdominal pain, reports nausea 2/2 pain GENITOURINARY: Reports R flank pain, low back pain, hematuria SKIN: denies rashes/ulcers MUSCULOSKELETAL: no muscle pain or stiffness NEUROLOGICAL: no loss of sensation or muscle weakness PSYCHIATRIC: denies mood changes or disorientation ENDOCRINE: no hot or cold intolerance HEMATOLOGIC/LYMPHATIC: no easy bruising HOME MEDICATIONS: Please see below. PHYSICAL EXAMINATION: VITAL SIGNS: Temperature 100.4, pulse 85, respiratory rate 18, blood pressure 115/58, pulse oximetry 92% on room air. GENERAL APPEARANCE: NAD, very pleasant/calm, laying flat in bed HEENT: NC/AT, poor dentition, EOMI, PERRL CARDIOVASCULAR: 2/6 BAYLEE in RUSB, no other m/r/g LUNGS: CTAB ABDOMEN: soft, nontender to palpation, +BS, no organomegaly BACK: No CVA tenderness appreciated MUSCULOSKELETAL: moves all extremities well, no joint swelling EXTREMITIES: no clubbing/cyanosis/edema NEUROLOGICAL: no obvious focal deficits PSYCHIATRIC: AAOx3, normal mood/affect LABORATORY DATA: (Done at [place]) CBC: WBC 10.7/ Hgb 15.3/ Hct 43.7/ Plt 269 CMP: 130/3.2/88/25/26/1.1 Glu 146, LFTS WNL UA: 500 protein, 150 RBC Lactic Acid: 2.9 IMAGING: (Done at [place]) ABDOMINAL CT: A single urinary calculus is present in the R distal ureter (3mm). There is mild obstruction. Mild hydronephrosis of the R kidney. 3 mm right UVJ stone with mild hydronephrosis. Performed without contrast. MICROBIOLOGY: Please see below. ASSESSMENT: This is a 69 YO M with history of nephrolithiasis and prostate cancer who presented with R flank pain found to have obstructive stone in the R UVJ and mild hydronephrosis. The patient has low grade fever concerning for pyelonephritis. He will be admitted for IV antibiotics and urology consultation. . PLAN: 1. Obstructing stone in R UVJ: concern for pyelonephritis -IVF 100cc/hr -NPO for now -IV Zosyn -Continue home Allopurinol, Chlorthalidone, Pyridium, Urocit-K -Urology consult in place -Pain management with IV Morphine, Toradol -IV Zofran PRN 2. Asthma: -Inhalers as needed DVT PPx: TEDs/SCDs Vital Signs Vital Signs Date Time Temp Pulse Resp B/P (MAP) Pulse Ox O2 Delivery O2 Flow Rate FiO2 02/02/20 03:28 100.4 85 18 115/58 (77) 92 Room Air Home Medications Scheduled Allopurinol (Allopurinol) 100 Mg Tablet, 100 MG PO DAILY Aspirin (Aspirin EC) 81 Mg Tablet.dr, 81 MG PO DAILY Budesonide/Formoterol (Symbicort 160-4.5 Mcg Inhaler) 60 Puff/Inhaler Aers, 2 PUFF INH BID Budesonide/Formoterol (Symbicort 160-4.5 Mcg Inhaler) 6 Gm Hfa.aer.ad, 2 PUFF INH BID Chlorthalidone (Chlorthalidone) 25 Mg Tablet, 25 MG PO DAILY Magnesium Oxide (Magnesium Oxide) 400 Mg Tablet, 400 MG PO DAILY Multivitamins (Thera M Plus Tablet) 1 Each Tablet, 1 TAB PO DAILY Phenazopyridine HCl (Pyridium) 200 Mg Tablet, 200 MG PO TID STARTED ON 01/27/2020 Potassium Citrate (Potassium Citrate 10MEQ (Urocit-K)) 10 Meq Tablet.er, 1,080 MG PO DAILY 1080MG = 10MEQ Scheduled PRN Acetaminophen (Tylenol) 325 Mg Tablet, 650 MG PO Q4H PRN for PAIN Albuterol Sulfate (Proair Hfa) 8.5 Gm Hfa.aer.ad, 2 PUFF INH QID PRN for SHORTNESS OF BREATH Allergies Coded Allergies: Contrast Media (Verified Allergy, Intermediate, itching and throat swelling, 12/03/17) SEAFOOD (Verified Allergy, Mild, Itching, throat swelling, 02/02/20) shellfish derived (Verified Allergy, Mild, Itching, throat swelling, 02/02/20) A-FIB/CHADSVASC A-FIB History Current/History of A-Fib/PAF?: No GME ATTESTATION GME ATTESTATION My faculty preceptor for this patient encounter was physically present during the encounter and was fully available. All aspects of the patient interview, examination, medical decision making process, and medical care plan development were reviewed and approved by the faculty preceptor. The faculty preceptor is aware and concurs with the plan as stated in the body of this note and will attest to such by his/her cosignature. ATTENDING NOTE I examined and discussed Mr. White's presentation and discussed the above plan with Dr Wan. Briefly, he is a 69 yo M with a history of prostate CA, extensive history of kidney stones, hiatal hernia, esophageal reflux, asthma and diverticulosis who initially presented to [facility] with R flank pain and was found to be febrile with a UVJ 2mm obstructive stone and recommended by Dr. Virk to transfer to [facility] for obstructive pyelonephritis where we have started him on empiric zosyn pending urine and blood cultures. JOVAN WAN MD Feb 02, 2020 05:21 DORIE JARRETT MD Feb 02, 2020 06:35
[2020-02-02 05:49] VITALS: BP 100/60
[2020-02-02] MEDS: ONDANSETRON 4MG/2ML VIAL IV SCH ×5 (06:00→20:11)
[2020-02-02] MEDS: PIPERACILLIN/TAZOBACTAM SOD 2.25 GM in D5W MINI-BAG PLUS 50 ML IV SCH ×3 (06:21→21:54)
[2020-02-02] MEDS: SYMBICORT 160/4.5MCG INHALER 6GM INH SCH ×2 (08:00→20:44)
[2020-02-02] MEDS ORDERED: CHLORTHALIDONE 25 MG TAB PO SCH (09:00)
[2020-02-02] MEDS: ASPIRIN 81 MG ENTERIC TAB PO SCH (10:17)
[2020-02-02] MEDS: TAMSULOSIN 0.4 MG CAP PO SCH (10:17)
[2020-02-02] MEDS: MULTIVITAMINS/MINERALS THERAP 1 TAB PO SCH (10:17)
[2020-02-02] MEDS: PHENAZOPYRIDINE 100 MG TAB PO SCH ×3 (10:17→20:11)
[2020-02-02] MEDS: DOCUSATE SODIUM 100 MG CAP PO SCH ×2 (10:17→20:11)
[2020-02-02] MEDS: MAGNESIUM OXIDE 400 MG TAB (MAG-OX) PO SCH (10:17)
[2020-02-02] MEDS: POTASSIUM CITRATE 1080 MG (10MEQ) TAB PO SCH (10:18)
[2020-02-02] MEDS: allopurinoL 100 MG TAB PO SCH (10:18)
[2020-02-02 14:00] VITALS: BP 95/58
--- NOTE | 2020-02-02 19:17 | IPNPDOC ---
Text Note Date of Service The patient was seen on 02/02/20. NOTE Patient was transferred to our ED from [facility] for right distal ureteral stone with obstruction for urology evaluation. A CT abd/pelvis found 3mm urinary calculus in the R distal ureter. There is mild obstruction and mild hydronephrosis of the R kidney. While patient was in our ED he passed a stone and after that his right flank and lower abdominal pain has completely resolved. His urine is still a little pink. Now he denies any abdominal pain. No fever or chills. Physical exam remains unchanged from this am. Kidney stones he thinks they are uric acid stones now with right UVJ stone seems to have passed Possible UTI with obs uropathy. UA dirty, culture pending so will continue zosyn, IVF and flomax. Ketorolac prn Hyperuricemia on allopurinol, Hold HCTZ. Asthma symbicort VS,Fishbone, I+O VS, Fishbone, I+O Vital Signs Date Time Temp Pulse Resp B/P (MAP) Pulse Ox O2 Delivery O2 Flow Rate FiO2 02/02/20 14:00 98.5 68 16 95/58 (70) 92 Room Air I&O- Last 24 Hours up to 6 AM 02/02/20 07:00 Intake Total 100 ml Output Total 0 ml Balance 100 ml KVNG HERRERA MD Feb 02, 2020 19:17
--- NOTE | 2020-02-02 19:17 | SMCUROLCON ---
Urology Consultation General Date of Consultation 02/02/20 Reason For Consultation This patient is seen for Obstructive Pyelonephritis. History of Present Illness The patient is a 69-year-old male with a past medical history for multiple kidney stones and prostate cancer. He says that about a week ago he started having right flank soreness. Since he has had stones in the past he thought this was another one and he started taking Tylenol and lots of fluids. the pain dis not stop and he finally went to the [place] [facility] where a CT showed he had a 3mm stone in the distal right ureter. He also had what they thought was a UTI and had an elevated temp. He was then transported here for treatment. Since arriving here, he passed his stone while in the ER. His temp has been improving and he is now feeling much better. Past Medical History Medical History Prostate cancer Renal stones Asthma Surgical Hstory Robotic radical prostatectomy 2018 Hemorrhoidectomy Family History Significant Family History: No pertinent family hx Social History * Smoker: non-smoker Alcohol: rarely Drugs: denies Medications Current Medications Current Medications Medications (Trade) Dose Ordered Sig/Tristen Route PRN Reason Start Time Stop Time Status Last Admin Dose Admin Acetaminophen (Tylenol Tab) 650 mg Q4H PRN PO PAIN 02/02/20 04:45 Albuterol Sulfate (Proventil, Ventolin Hfa) 2 puff QID PRN INH SHORTNESS OF BREATH 02/02/20 04:45 Allopurinol (Zyloprim) 100 mg DAILY PO 02/02/20 09:00 02/02/20 10:18 Aspirin (Ecotrin) 81 mg DAILY PO 02/02/20 09:00 02/02/20 10:17 Budesonide/ Formoterol Fumarate (Symbicort 160/ 4.5mcg) 2 puff RBID INH 02/02/20 08:00 Chlorthalidone (Hygroton) 25 mg DAILY PO 02/02/20 09:00 02/02/20 15:17 DC 02/02/20 10:17 Docusate Sodium (Colace) 100 mg BID PO 02/02/20 09:00 02/02/20 10:17 Home Med (Med Rec Complete!) ASDIRECTED XX 02/02/20 04:45 02/02/20 04:37 DC Ketorolac Tromethamine (ToRADol) 15 mg Q6H PRN IV PAIN 02/02/20 05:15 02/07/20 05:14 Magnesium Hydroxide (Milk Of Magnesia) 30 ml DAILY PRN PO CONSTIPATION 02/02/20 04:45 Magnesium Oxide (Mag-Ox) 400 mg DAILY PO 02/02/20 09:00 02/02/20 10:17 Morphine Sulfate (Morphine Sulfate Inj) 2 mg Q4H PRN IV MODERATE PAIN (PS 5-7) 02/02/20 05:15 Multivitamins (Theragram-M) 1 tab DAILY PO 02/02/20 09:00 02/02/20 10:17 Ondansetron HCl (ZOFRAN INJection) 4 mg Q4H IV 02/02/20 06:00 Phenazopyridine HCl (Pyridium) 200 mg TID PO 02/02/20 09:00 02/02/20 10:17 Piperacillin Sod/ Tazobactam Sod 2.25 gm/Dextrose 50 ml @ 100 mls/hr Q8H IV 02/02/20 06:00 02/02/20 15:16 Potassium Citrate (Urocit-K) 1,080 mg DAILY PO 02/02/20 09:00 Sodium Chloride 1,000 ml @ 100 mls/hr Q10H IV 02/02/20 04:45 02/02/20 15:16 Tamsulosin HCl (Flomax) 0.4 mg DAILY PO 02/02/20 09:00 02/02/20 10:17 Allergies Allergies: Coded Allergies: Contrast Media (Verified Allergy, Intermediate, itching and throat swelling, 12/03/17) SEAFOOD (Verified Allergy, Mild, Itching, throat swelling, 02/02/20) shellfish derived (Verified Allergy, Mild, Itching, throat swelling, 02/02/20) Review of Systems General: Reports: Normal Appetite; Denies: Fatigue, Malaise Constitutional: Denies: Fever, Chills, Sweats, Weakness, Malaise Eyes: Denies: Pain, Vision change ENT: Denies: Head Aches, Sore Throat, Epistaxis Skin: Denies: Rash, Lesions, Breakdown, Nail Changes Pulmonary: Denies: Dyspnea, Cough Cardiovascular: Denies Chest Pain, Denies Palpitations Gastrointestinal: Denies: Nausea, Vomiting, Abdominal Pain Genitourinary: Denies: Dysuria, Frequency, Incontinence, Hematuria Hematologic: Denies: Bruising, Bleeding Excessively Endocrine: Denies: Polydipsia, Polyphagia, Polyuria Musculoskeletal: Denies: Neck Pain, Back Pain Neurological: Denies: Weakness, Numbness, Incoordination, Change in Speech Psych: Reports: Mood Normal; Denies: Anxiety, Depression Physical Examination General Exam: Alert, No Acute Distress EYE EXAM: PERRLA, Conjunctiva & lids normal, EOMI; No: Sclera icteric ENT EXAM: Atraumatic, Mucous membr. moist/pink, Pharynx Normal Neck Exam: Supple; No: JVD, thyromegaly Chest Exam: Clear to auscultation, Normal air movement Heart Exam: Rate Normal, Regular Rhythm, Normal S1, Normal S2; No: Murmurs, Rubs Abdomen Exam: Normal Bowel Sounds, Soft; No: Tenderness, Hepatospenomegaly Male Exam: Normal Genital Exam Skin Exam: Nl turgor and temperature; No: Rash, Breakdown Neuro Exam: Normal Gait, Normal Speech, Cranial Nerves 3-12 NL, Reflexes 2+ Psych Exam: Mental status NL, Mood NL, Oriented x 3 Vital Signs/I&O Vital Signs Date Time Temp Pulse Resp B/P (MAP) Pulse Ox O2 Delivery O2 Flow Rate FiO2 02/02/20 14:00 98.5 68 16 95/58 (70) 92 Room Air I&O- Last 24 Hours up to 6 AM 02/02/20 06:00 Intake Total 0 ml Output Total 0 ml Balance 0 ml Laboratory Data 24H Labs Laboratory Tests 2 02/02/20 05:13: Urine Color GITA, Urine Appearance HAZY, Urine pH 5.0, Urine Specific [place] 1.006, Urine Protein NEGATIVE, Urine Glucose (UA) NEGATIVE, Urine Ketones NEGATIVE, Urine Blood 3+H, Urine Nitrite POSITIVEH, Urine Bilirubin NEGATIVE, Urine Urobilinogen 0.2, Urine Leukocyte Esterase 3+H, Urine WBC (Auto) 49H, Urine RBC (Auto) 166H, Urine Hyaline Casts (Auto) 0, Urine Bacteria (Auto) 1+H, Urine Squamous Epithelial Cells 0, Urine Mucus (Auto) SMALL, Urine Sperm (Auto) Microbiology Microbiology 02/02/20 Urine Culture, Received Pending Assessment Spontaneously passed ureteral calculus UTI - cultures pending Plan continue hydration Await urine culture results When stable, may be sent home on oral antibiotics Followup as previously scheduled for prostate cancer management. Time Spent on Consult: Time Spent / Consult (Minutes): 70 RYAN PENA MD Feb 02, 2020 19:17
[2020-02-02 22:00] VITALS: BP 111/59
[2020-02-03] MEDS: ONDANSETRON 4MG/2ML VIAL IV SCH ×3 (01:19→09:54)
[2020-02-03] MEDS: NS 1,000 ML IV SCH (03:11)
[2020-02-03] MEDS: PIPERACILLIN/TAZOBACTAM SOD 2.25 GM in D5W MINI-BAG PLUS 50 ML IV SCH (05:02)
[2020-02-03 06:00] VITALS: BP 115/58
[2020-02-03 07:10] LABS: HEMATOCRIT 35.9 % (42.0-52.0); HEMOGLOBIN 12.1 g/dl (13.5-17.5); MEAN CORPUSCULAR HEMOGLOBIN 32.4 pg (27.0-33.0); MEAN CORPUSCULAR HGB CONC 33.7 g/dl (32.0-36.5); MEAN CORPUSCULAR VOLUME 96.2 fl (80.0-96.0); PLATELET COUNT, AUTOMATED 243 10^3/uL (150-450); RED BLOOD COUNT 3.73 10^6/uL (4.30-6.10); WHITE BLOOD COUNT 16.8 10^3/uL (4.0-10.0)
[2020-02-03] MEDS: SYMBICORT 160/4.5MCG INHALER 6GM INH SCH (07:31)
[2020-02-03 07:39] LABS: ALBUMIN 2.5 GM/DL (3.2-5.2); ALT/SGPT 26 U/L (12-78); BILIRUBIN,TOTAL 0.7 MG/DL (0.2-1.0); BLOOD UREA NITROGEN 18 MG/DL (7-18); CALCIUM LEVEL 7.9 MG/DL (8.8-10.2); CARBON DIOXIDE LEVEL 27 MEQ/L (21-32); CHLORIDE LEVEL 105 MEQ/L (98-107); CREATININE FOR GFR 0.98 MG/DL (0.70-1.30); GLOMERULAR FILTRATION RATE > 60.0 (>49); GLUCOSE, FASTING 134 MG/DL (70-100); POTASSIUM SERUM 3.1 MEQ/L (3.5-5.1); SODIUM LEVEL 138 MEQ/L (136-145)
[2020-02-03] MEDS ORDERED: POTASSIUM CHLORIDE 10 MEQ SR TABLET PO ONE (09:00)
[2020-02-03] MEDS: PHENAZOPYRIDINE 100 MG TAB PO SCH (09:00)
[2020-02-03] MEDS ORDERED: FLOM0.4C39 PO (09:04)
[2020-02-03] MEDS ORDERED: CEFD1CAP8 PO (09:04)
[2020-02-03] MEDS: POTASSIUM CITRATE 1080 MG (10MEQ) TAB PO SCH (09:52)
[2020-02-03] MEDS: MULTIVITAMINS/MINERALS THERAP 1 TAB PO SCH (09:52)
[2020-02-03] MEDS: ASPIRIN 81 MG ENTERIC TAB PO SCH (09:53)
[2020-02-03] MEDS: allopurinoL 100 MG TAB PO SCH (09:53)
[2020-02-03] MEDS: MAGNESIUM OXIDE 400 MG TAB (MAG-OX) PO SCH (09:53)
[2020-02-03] MEDS: DOCUSATE SODIUM 100 MG CAP PO SCH (09:53)
[2020-02-03] MEDS: TAMSULOSIN 0.4 MG CAP PO SCH (09:53)
--- NOTE | 2020-02-03 16:05 | DS.PDOC ---
Discharge Summary General Date of Admission Feb 02, 2020 at 03:18 Date of Discharge 02/03/20 Discharge Summary PROCEDURES PERFORMED DURING STAY: [None]. DISCHARGE DIAGNOSES: Right distal ureteric stone passed spontaneously Obstructive uropathy with right hydronephrosis Complicated Pyelonephritis SECONDARY DIAGNOSIS: Prostate Ca s/p prostatectomy and RT, Asthma, Kidney stones, Hyperuricemia COMPLICATIONS/CHIEF COMPLAINT: Obstructive Pyelonephritis. HOSPITAL COURSE: This is a 69 YO M with history of nephrolithiasis and prostate cancer who presented with R flank pain found to have obstructive stone in the R UVJ and mild hydronephrosis. The patient has low grade fever concerning for pyelonephritis. He was admitted for IV antibiotics and urology consultation. Complicated pyelonephritis with obstructive uropathy due to stone treated with zosyn in hospital UC 2 organisms of no clinical significance will continue with oral Cefdinir at home. Right Ureteral stone passed spontaneously follow up Dr Hernandez Asthma: Inhalers as needed DISCHARGE MEDICATIONS: Please see below. ALLERGIES: Please see below. PHYSICAL EXAMINATION ON DISCHARGE: VITAL SIGNS: Please see below. GENERAL APPEARANCE: NAD, very pleasant/calm HEENT: NC/AT, poor dentition, EOMI, PERRL CARDIOVASCULAR:S1, S2 regular, no m/r/g LUNGS: CTAB ABDOMEN: soft, nontender to palpation, +BS, no organomegaly BACK: No CVA tenderness appreciated MUSCULOSKELETAL: moves all extremities well, no joint swelling EXTREMITIES: no clubbing/cyanosis/edema NEUROLOGICAL: no obvious focal deficits PSYCHIATRIC: AAOx3, normal mood/affect LABORATORY DATA: Please see below. IMAGING: (Done at [place]) ABDOMINAL CT: A single urinary calculus is present in the R distal ureter (3mm). There is mild obstruction. Mild hydronephrosis of the R kidney. 3 mm right UVJ stone with mild hydronephrosis. Performed without contrast. ACTIVITY: [As tolerated]. DIET: As tolerated DISPOSITION: 01 Home, Self-Care. DISCHARGE INSTRUCTIONS: Follow up Dr Hernandez PMD in 1 week DISCHARGE CONDITION: [Stable]. TIME SPENT ON DISCHARGE: 35 minutes. Vital Signs/I&Os Vital Signs Date Time Temp Pulse Resp B/P (MAP) Pulse Ox O2 Delivery O2 Flow Rate FiO2 02/03/20 06:54 98.2 02/03/20 06:00 64 18 115/58 (77) 94 Room Air I&O- Last 24 Hours up to 6 AM 02/03/20 05:59 Intake Total 3240 ml Output Total 2900 ml Balance 340 ml Laboratory Data Labs 24H Laboratory Tests 2 02/03/20 06:41: Nucleated Red Blood Cells % (auto) 0.0, Anion Gap 6L, Glomerular Filtration Rate > 60.0, Calcium Level 7.9L, Total Bilirubin 0.7, Aspartate Amino Transf (AST/SGOT) 11, Alanine Aminotransferase (ALT/SGPT) 26, Alkaline Phosphatase 75, Total Protein 5.0L, Albumin 2.5L, Albumin/Globulin Ratio 1.0 CBC/BMP Laboratory Tests 02/03/20 06:41 Microbiology Microbiology 02/02/20 Urine Culture - Final, Complete Discharge Medications Scheduled Allopurinol (Allopurinol) 100 Mg Tablet, 100 MG PO DAILY, (Reported) Aspirin (Aspirin EC) 81 Mg Tablet.dr, 81 MG PO DAILY, (Reported) Budesonide/Formoterol (Symbicort 160-4.5 Mcg Inhaler) 60 Puff/Inhaler Aers, 2 PUFF INH BID, (Reported) Budesonide/Formoterol (Symbicort 160-4.5 Mcg Inhaler) 6 Gm Hfa.aer.ad, 2 PUFF INH BID, (Reported) Cefdinir (Cefdinir) 300 Mg Capsule, 1 CAP PO BID Chlorthalidone (Chlorthalidone) 25 Mg Tablet, 25 MG PO DAILY, (Reported) Magnesium Oxide (Magnesium Oxide) 400 Mg Tablet, 400 MG PO DAILY, (Reported) Multivitamins (Thera M Plus Tablet) 1 Each Tablet, 1 TAB PO DAILY, (Reported) Potassium Citrate (Potassium Citrate 10MEQ (Urocit-K)) 10 Meq Tablet.er, 1,080 MG PO DAILY, (Reported) 1080MG = 10MEQ Tamsulosin HCl (Flomax) 0.4 Mg Capsule, 0.4 MG PO DAILY Scheduled PRN Acetaminophen (Tylenol) 325 Mg Tablet, 650 MG PO Q4H PRN for PAIN, (Reported) Albuterol Sulfate (Proair Hfa) 8.5 Gm Hfa.aer.ad, 2 PUFF INH QID PRN for SHORTNESS OF BREATH, (Reported) Allergies Coded Allergies: Contrast Media (Verified Allergy, Intermediate, itching and throat swelling, 12/03/17) SEAFOOD (Verified Allergy, Mild, Itching, throat swelling, 02/02/20) shellfish derived (Verified Allergy, Mild, Itching, throat swelling, 02/02/20) KVNG HERRERA MD Feb 03, 2020 16:05
== END 2020-02-03 12:20 | disposition home or self-care (01) ==
LOC: M ED 03:17 → M ED INP 03:18 → M MSPAV 05:49
PROVIDERS: ADMIT Internal Medicine; ATTEND Internal Medicine Nephrology
DX: N13.6 Pyonephrosis (principal); N13.8 Other obstructive and reflux uropathy; Z85.46 Personal history of malignant neoplasm of prostate; Z92.3 Personal history of irradiation; J45.909 Unspecified asthma, uncomplicated; E79.0 Hyperuricemia without signs of inflammatory arthritis and tophaceous disease; Z87.441 Personal history of nephrotic syndrome; K21.9 Gastro-esophageal reflux disease without esophagitis; K57.90 Diverticulosis of intestine, part unspecified, without perforation or abscess without bleeding; Z79.899 Other long term (current) drug therapy; Z79.82 Long term (current) use of aspirin; Z79.51 Long term (current) use of inhaled steroids; Z79.2 Long term (current) use of antibiotics; Z91.041 Radiographic dye allergy status; Z91.013 Allergy to seafood; Z90.79 Acquired absence of other genital organ(s)
CPT/HCPCS: 36415; 80053; 81001; 85027; 87086; 96361; 96365; 96366; 96376; 97161; 99284; G0378; J2543

== ENCOUNTER → 2020-02-16 | Outpatient (REF) | payer MEDICARE ==
[~2020-02-16] MED LIST changes: +ACET-907 PO; +ALLO100T PO; +ASPI-161 PO; +ASPI81TA86 PO; +CEFD1CAP8 PO; +CHLO125TA PO; +FLOM0.4C39 PO; +MAGN400T3 PO; +PROAAER10 INH; +PYRI1TAB5 PO; +VITMTA PO
[2020-02-16 14:43] LABS: APPEARANCE, URINE CLEAR (CLEAR); BACTERIA, URINE AUTO NEGATIVE (NEGATIVE); BILIRUBIN, URINE AUTO NEGATIVE (NEGATIVE); BLOOD, URINE BLOOD NEGATIVE (NEGATIVE); COLOR, URINE YELLOW (YELLOW); GLUCOSE, URINE (UA) AUTO NEGATIVE (NEGATIVE); KETONE, URINE AUTO NEGATIVE (NEGATIVE); LEUKOCYTE ESTERASE, URINE AUTO NEGATIVE (NEGATIVE); MUCUS, URINE SMALL (NEGATIVE); NITRITE, URINE AUTO NEGATIVE (NEGATIVE); PROTEIN, URINE AUTO NEGATIVE (NEGATIVE); RBC, URINE AUTO 6 /HPF (0-3); SPECIFIC GRAVITY URINE AUTO 1.011 (1.002-1.035); SQUAMOUS EPITHELIAL CELL UR AU 0 /HPF (0-6); UROBILINOGEN, URINE AUTO 0.2 mg/dL (0.0-2.0); WBC, URINE AUTO 1 /HPF (0-3)
== END ==
LOC: M SMT 12:46
PROVIDERS: ATTEND Nurse Practitioner Women's Health
DX: N20.0 Calculus of kidney (principal)
CPT/HCPCS: 81001; 87086; G0463

== ENCOUNTER → 2020-02-24 | Outpatient (REF) | payer MEDICARE ==
[2020-02-24 17:58] LABS: APPEARANCE, URINE CLEAR (CLEAR); BACTERIA, URINE AUTO 1+ (NEGATIVE); BILIRUBIN, URINE AUTO NEGATIVE (NEGATIVE); BLOOD, URINE BLOOD 3+ (NEGATIVE); COLOR, URINE STRAW (YELLOW); GLUCOSE, URINE (UA) AUTO NEGATIVE (NEGATIVE); KETONE, URINE AUTO NEGATIVE (NEGATIVE); LEUKOCYTE ESTERASE, URINE AUTO 3+ (NEGATIVE); MUCUS, URINE SMALL (NEGATIVE); NITRITE, URINE AUTO NEGATIVE (NEGATIVE); PROTEIN, URINE AUTO NEGATIVE (NEGATIVE); RBC, URINE AUTO 3 /HPF (0-3); SPECIFIC GRAVITY URINE AUTO 1.001 (1.002-1.035); SQUAMOUS EPITHELIAL CELL UR AU 0 /HPF (0-6); UROBILINOGEN, URINE AUTO 0.2 mg/dL (0.0-2.0); WBC, URINE AUTO 15 /HPF (0-3)
== END ==
LOC: M SMT 17:03
PROVIDERS: ATTEND Nurse Practitioner Women's Health
DX: R30.0 Dysuria (principal)

== ENCOUNTER → 2020-04-27 | Outpatient (REF) | payer MEDICARE | LOC: M LABSMT 10:35 | PROVIDERS: ATTEND Urology | DX: C61 Malignant neoplasm of prostate (principal) ==

== ENCOUNTER → 2020-08-12 | Outpatient (REF) | payer MEDICARE ==
[~2020-08-12] MED LIST changes: +HYDR-3490 PO; -HYDR25TAB PO
== END ==
LOC: M PLALAB 08:37
PROVIDERS: ATTEND Urology
DX: C61 Malignant neoplasm of prostate (principal)

== ENCOUNTER → 2021-02-06 | Outpatient (CLI) | payer MEDICARE | LOC: M PLALAB 10:51 | PROVIDERS: ATTEND Urology | DX: C61 Malignant neoplasm of prostate (principal) ==

== ENCOUNTER → 2021-02-13 | Outpatient (REF) | payer MEDICARE ==
[~2021-02-13] MED LIST changes: +ALLE24TA7 PO; -MAGN400T3 PO; +MAGN400T33 PO; +allergy shot SQ
[2021-02-13 12:18] LABS: APPEARANCE, URINE CLEAR (CLEAR); BACTERIA, URINE AUTO NEGATIVE (NEGATIVE); BILIRUBIN, URINE AUTO NEGATIVE (NEGATIVE); BLOOD, URINE BLOOD NEGATIVE (NEGATIVE); COLOR, URINE YELLOW (YELLOW); GLUCOSE, URINE (UA) AUTO NEGATIVE (NEGATIVE); KETONE, URINE AUTO NEGATIVE (NEGATIVE); LEUKOCYTE ESTERASE, URINE AUTO NEGATIVE (NEGATIVE); MUCUS, URINE SMALL (NEGATIVE); NITRITE, URINE AUTO NEGATIVE (NEGATIVE); PROTEIN, URINE AUTO NEGATIVE (NEGATIVE); RBC, URINE AUTO 1 /HPF (0-3); SQUAMOUS EPITHELIAL CELL UR AU 0 /HPF (0-6); UROBILINOGEN, URINE AUTO 0.2 mg/dL (0.0-2.0); WBC, URINE AUTO 2 /HPF (0-3)
== END ==
LOC: M SMT 11:40
PROVIDERS: ATTEND Urology
DX: N39.0 Urinary tract infection, site not specified (principal)
CPT/HCPCS: 81001; 87086; G0463

== ENCOUNTER → 2021-02-15 | Outpatient (CLI) | payer MEDICARE ==
[~2021-02-15] MED LIST changes: -ALLE24TA7 PO; +MAGN400T3 PO; -MAGN400T33 PO; -allergy shot SQ
--- NOTE | 2021-02-15 09:23 | REPPI ---
INDICATION: KIDNEY STONE COMPARISON: None. TECHNIQUE: Supine view of the abdomen and pelvis. FINDINGS: Findings suggest innumerable bilateral intrarenal calculi measuring up to roughly 8 mm in the midpole right kidney and 6 mm lower pole left kidney. Calcifications in the left hemipelvis are nonspecific and likely phleboliths although ureteral calcification cannot definitively be excluded. Bowel gas pattern is nonspecific. Skeletal structures demonstrate age-related changes. IMPRESSION: Bilateral nephrolithiasis. <Electronically signed by Saud Farrell > 02/15/21 0919
== END ==
LOC: M PLALAB 07:48
PROVIDERS: ATTEND Urology
DX: N20.0 Calculus of kidney (principal)

== ENCOUNTER → 2021-02-23 | Outpatient (CLI) | payer MEDICARE ==
[~2021-02-23] MED LIST changes: +ALLE24TA7 PO; +allergy shot SQ
--- NOTE | 2021-02-23 11:40 | REP ---
INDICATION: PRE OP COMPARISON: 10/23/2017 TECHNIQUE: PA and lateral. FINDINGS: The mediastinum and cardiac silhouette are normal. The lung kitchen demonstrate stable chronic changes without acute consolidation, effusion, or pneumothorax. The skeletal structures are intact and normal. IMPRESSION: No acute cardiopulmonary process. <Electronically signed by Saud Farrell > 02/23/21 [id number]
[2021-02-23 13:21] LABS: HEMATOCRIT 45.9 % (42.0-52.0); HEMOGLOBIN 15.4 g/dl (13.5-17.5); MEAN CORPUSCULAR HEMOGLOBIN 32.4 pg (27.0-33.0); MEAN CORPUSCULAR HGB CONC 33.6 g/dl (32.0-36.5); MEAN CORPUSCULAR VOLUME 96.6 fl (80.0-96.0); PLATELET COUNT, AUTOMATED 217 10^3/uL (150-450); RED BLOOD COUNT 4.75 10^6/uL (4.30-6.10); WHITE BLOOD COUNT 3.7 10^3/uL (4.0-10.0)
[2021-02-23 13:46] LABS: BLOOD UREA NITROGEN 22 MG/DL (7-18); CALCIUM LEVEL 9.7 MG/DL (8.8-10.2); CARBON DIOXIDE LEVEL 30 MEQ/L (21-32); CHLORIDE LEVEL 105 MEQ/L (98-107); CREATININE FOR GFR 1.04 MG/DL (0.70-1.30); GLOMERULAR FILTRATION RATE > 60.0 (>49); GLUCOSE, FASTING 119 MG/DL (70-100); POTASSIUM SERUM 4.9 MEQ/L (3.5-5.1); SODIUM LEVEL 140 MEQ/L (136-145)
== END ==
LOC: M PLAIMG 10:57 → M PLALAB 10:57
PROVIDERS: ATTEND Urology
DX: Z01.818 Encounter for other preprocedural examination (principal); N20.0 Calculus of kidney

== ENCOUNTER → 2021-02-23 | Outpatient (CLI) | payer MEDICARE ==
--- NOTE | 2021-02-23 19:19 | ECGEPIP ---
[facility] Test Date: 2021-02-23 Pat Name: ARYAN MANN Department: Room: - Gender: Male Food Service: DOMINGA : 1950 Requested By: DARREN Romero Order Number: [id number] Reading MD: Keyshawn Saravia Measurements Intervals [place] Rate: 60 P: 43 WI: 178 QRS: -15 QRSD: 104 T: 20 QT: 438 QTc: 438 Interpretive Statements Normal sinus rhythm Comparison tracing not on file Electronically Signed on 02-23-2021 19:18:53 EDT by Keyshawn Saravia
== END ==
LOC: M EKG 11:40
PROVIDERS: ATTEND Urology
DX: N20.0 Calculus of kidney (principal)

== ENCOUNTER → 2021-02-25 | Outpatient (CLI) | payer MEDICARE | LOC: M LABSMTC 10:12 | PROVIDERS: ATTEND Anesthesiology | DX: Z01.812 Encounter for preprocedural laboratory examination (principal); Z20.822 Contact with and (suspected) exposure to COVID-19 ==

== ENCOUNTER → 2021-03-07 | Outpatient (CLI) | payer MEDICARE ==
[~2021-03-07] MED LIST changes: -MAGN400T3 PO; +MAGN400T33 PO
[2021-03-07 15:39] LABS: APPEARANCE, URINE CLEAR (CLEAR); BACTERIA, URINE AUTO NEGATIVE (NEGATIVE); BILIRUBIN, URINE AUTO NEGATIVE (NEGATIVE); BLOOD, URINE BLOOD 1+ (NEGATIVE); COLOR, URINE YELLOW (YELLOW); GLUCOSE, URINE (UA) AUTO NEGATIVE (NEGATIVE); KETONE, URINE AUTO NEGATIVE (NEGATIVE); LEUKOCYTE ESTERASE, URINE AUTO NEGATIVE (NEGATIVE); MUCUS, URINE SMALL (NEGATIVE); NITRITE, URINE AUTO NEGATIVE (NEGATIVE); PROTEIN, URINE AUTO NEGATIVE (NEGATIVE); RBC, URINE AUTO 0 /HPF (0-3); SPECIFIC GRAVITY URINE AUTO 1.014 (1.002-1.035); SQUAMOUS EPITHELIAL CELL UR AU 0 /HPF (0-6); UROBILINOGEN, URINE AUTO 0.2 mg/dL (0.0-2.0); WBC, URINE AUTO 1 /HPF (0-3)
== END ==
LOC: M PLALAB 12:57
PROVIDERS: ATTEND Urology
DX: N39.0 Urinary tract infection, site not specified (principal)

== ENCOUNTER → 2021-03-11 | Outpatient (CLI) | payer MEDICARE | LOC: M LABSMTC 09:02 | PROVIDERS: ATTEND Anesthesiology | DX: Z01.818 Encounter for other preprocedural examination (principal); Z20.828 Contact with and (suspected) exposure to other viral communicable diseases ==

== ENCOUNTER 2021-03-16 07:22 | Day surgery (SDC) | payer MEDICARE ==
[~2021-03-16] VITALS: Ht 177.8 cm; Wt 104.3 kg
[~2021-03-16 07:22] MED LIST changes: +LIDOCAINE 1% MDV 20ML VIAL SQ PRN; +LR 1,000 ML IV ONE; -PERC5TAB12 PO; +ceFAZolin SOD 2 GM in IV 1 EA IV ONE
--- OUTSIDE RECORDS SUMMARY | 2021-03-16 07:27 | CCD ---
Author Author [email or web address] Organization [facility] Address Unknown Phone Unavailable Care Team Providers Care Tab Machine Operator Name Role Phone DavidJohn tyler Unavailable PROBLEMS Type Condition ICD9-CM Code YTH74-HQ Code Onset Dates Condition S tatus W/U Status Risk SNOMED Code Notes Problem Kidney stone 592.0 Active confirmed 6078114 7 Problem Special screening for malignant neoplasm of prostate V76.44 Active confirmed 864744432 Problem PSA elevation R97.20 Active confirmed 455539 005 Problem Kidney stone N20.0 Active confirmed 7022747 7 Problem UTI (urinary tract infection) N39.0 Active confirm ed 75105151 Problem Prostate cancer C61 Active confirmed 2549 70602 Problem Lung nodule seen on imaging study R91.1 Active confirmed 098743434 Problem History of prostate cancer Z85.46 Active confirmed 985154858 Problem Rising PSA following treatment for malignant clarice plasm of prostate R97.21 Active confirmed 420287545 ALLERGIES Allergen (clinical drug ingredient) Drug/Non Drug Allergy do cumented on EMR Reaction Allergy Type Onset Date Status IV dye Rash Non Drug Allergy Active ENCOUNTERS from 1950 to 2021-02-14 Encounter Location Date Provider Diagnosis [facility] [address] [phone] [place] [address] Feb, John Hernandez Prostate cancer C61 ; Kidney stone N20.0 and UTI (urinary tract infection) N39.0 IMMUNIZATIONS No Information SOCIAL HISTORY Sex Assigned At : Social History Observation Description Sex Assigned At Unknown Sexual Hx: Question Answer Notes Had sex in the last 12 months (vaginal, oral, or anal)? No Have you ever had an STD? No REASON FOR REFERRAL No Information VITAL SIGNS Weight 229 lbs Feb, Weight-kg 103.87 kg Feb, Height 72 in Feb, BMI 31.05 kg/m2 Feb, Heart Rate 80 /min Feb, Respiratory Rate 18 /min Feb, Temperature 98.6 degrees Fahrenheit Feb, Oximetry 99 Feb, Blood pressure systolic 134 mm Hg Feb, Blood pressure diastolic 88 mm Hg Feb, MEDICATIONS Medication SIG (Take, Route, Frequency, Duration) Notes Start Da te End Date Status Bactrim DS 800-160 MG 1 tablet Orally Twice a day for 10 day(s) Feb, Active NexIUM 20 MG 1cap Orally daily Not-T aking Chlorthalidone 25 MG 1 tablet in the morning with food Orally Once a day for 30 day(s) Active Allopurinol 100 MG TAKE ONE TABLET BY MOUTH EVERY DAY for 30 Active Magnesium Oxide 400 MG 1 capsule Orally Once a day for 30 day(s) Active Multivitamins 1tab Orally daily Acti ve Symbicort 160-4.5 MCG/ACT 2 puffs Inhalation Twice a day Active Aspirin 81 81 MG 1 tablet Orally Once a day Active Potassium Citrate Active hydroCHLOROthiazide 12.5 MG 1 capsule in the morning Orally Twice a d ay Not-Taking Vitamin B Complex - as directed Orally Not-Taking Flomax 0.4 MG 1 capsule 30 minutes after t he same meal each day Orally Once a day for 30 day(s) 18 more days Active Albuterol Sulfate HFA 108 (90 Base) MCG/ACT 2 puffs Inhalation q4h pr n Not-Taking Ciprofloxacin HCl 500 MG 1 tablet Orally every 12 hrs for 10 day (s) Mar, Active Potassium Citrate ER 10 MEQ (1080 MG) 1 tablet with me als Orally bid for 90 day(s) Jun, Active Pyridium 200 MG 1 tablet after meals Orally Three times a day fo r 3 days Mar, Active PROCEDURES No Information RESULTS Component Value Reference Range UA URINALYSIS Reviewed date:02/14/2021 12:44:17 Interpretation: Performing Lab:[facility], [facility] [id number] , ,[place] [address] REASON FOR VISIT 6 month f/u prostate cancer PSA prior MEDICAL (GENERAL) HISTORY Type Description Date Medical History kidney stones Medical History Hiatal hernia Medical History Esophageal reflux Medical History Asthma Medical History Hay fever/allergies Medical History Diverticulosis Surgical History hemorrhoidectomy Surgical History ESWL Surgical History Ureterosopy/stone extraction Surgical History truss bx 07/09/14 Surgical History prostatectomy 12/17/2017 Hospitalization History [facility] hosptial for Kidney stone- passe d stone 01/2020 Goals Section No Information Health Concerns No Information MEDICAL EQUIPMENT No Information MENTAL STATUS No Information FUNCTIONAL STATUS No Information ASSESSMENTS Encounter Date Diagnosis Assessment Notes Treatment Notes Treatm ent Clinical Notes Feb, Prostate cancer (ICD-10 - C61) - send urine for UA and culture - stone prevention discussed - info on low oxalate diet given - PSA results discussed - check PSA q3 months - f/u in 6 months Feb, Kidney stone (ICD-10 - N20.0) Feb, UTI (urinary tract infection) (ICD-10 - N39.0) Feb, Other Low-oxalate diet material wa s printed PLAN OF TREATMENT Treatment Notes Assessment Notes Clinical Notes Prostate cancer - send urine for UA and culture- stone prevention discussed - info on low oxalate diet given- PSA results discussed- check PSA q3 months- f/u in 6 months Treatment Notes Test Name Order Date Abdomen, Flat Plate (KUB) PLZ or [facility] 2021-02-13 URINE CULTURE 2021-02-13 Future Test Test Name Order Date PSA MONITOR (HX PROSTATE CA/ABNORMAL PSA) [id number] PSA MONITOR (HX PROSTATE CA/ABNORMAL PSA) [id number] Next Appt Details prostate cancer Reason: Provider Name:John Hernandez, 10:15:00 AM, [address], , [place], [address], Insurance Providers Payer Name Payer Address Payer Phone Insured Name Patient Relati onship to Insured Coverage Start Date Coverage End Date [employer] OPTIONS [facility] CLAIM DIV [address] [facility] [phone] ARYAN WHITE MEDICARE Part A and B [address] [facility] [place] [address] ARYAN WHITE 2017
--- OUTSIDE RECORDS SUMMARY | 2021-03-16 07:27 | CCD | Continuity of Care Document ---
Author Author Ángel POWER M.D. Organization Unknown Address [address], [place] [address] Phone [phone] Care Team Providers Care Pay Agent Name Role Phone Darrell Ortez DO AUTM [phone] Problems Active Problems Provider Date Mild persistent asthma Onset: 11/15/2015 Allergic rhinitis due to pollen Onset: 0 11/15/2015 Note: On IT. 4+ reaction to ragweed on s cratch test. 4+ reaction to tree pollen and 4++ reaction to various weeds on intradermal test completed in 2015. Allergic rhinitis due to house dust mite Irina [place], OUTSIDE MACHINIST SUPERVISOR- C Onset: 07/13/2019 Note: On IT. 4+ reaction to Dust Mites o n intradermal test completed in 2015. Allergic rhinitis caused by mold Irina Gil, OUTSIDE MACHINIST SUPERVISOR-C Onset: 07/13/2019 Note: On IT. 4+ reaction to Molds on int radermal test completed in 2015. Social History Type Date Description Comments Sex Unknown Tobacco Use Reviewed: 09/09/20 Patient has never smoked Smoking Status Reviewed: 09/09/20 Patient has never smoked Allergies, Adverse Reactions, Alerts Active Allergies Criticality Reaction | Severity Comments Date IV Contrast Dye Unable to assess criticality itching, throat swelli ng 01/03/2019 Medications Active Medications SIG Qnty Indications Ordering Provide r Date Ventolin HFA 108(90Base) mcg/Act A erosol 2 puffs every 4-6 hours as needed Unknown 10/13/2015 Chlorthalidone 25mg Tablets Take One Tablet By Mouth Every Day Unknown 00/00/ 0000 Symbicort 160-4.5mcg/Act Aerosol Inhale Two Puffs By Mouth Twice A Day Unknown 0 Potassium Citrate ER 10Meq (1080 mg) Tablets ER Take One Tablet By Mouth Twice A Day Unkn own Allopurinol 100mg Tablets Take One Tablet By Mouth Every Day Unknown Fexofenadine HCL 180mg Tablets take 1 tablet by oral route once a day (in the morning) as needed Unknown Medications Administered in Office Medication SIG Qnty Indications Ordering Provider Date Allergy Injection 2 Or More Injection Erick Power M.D. 01/31/2021 Allergy Injection 2 Or More Injection Erick Power M.D. 01/09/2021 Allergy Injection 2 Or More Injection Erick Poewr M.D. 12/19/2020 Allergy Injection 2 Or More Injection Erick Power M.D. 12/05/2020 Allergy Injection 2 Or More Injection Erick Power M.D. 11/28/2020 Allergy Injection 2 Or More Injection Erick Power M.D. 11/21/2020 Allergy Injection 2 Or More Injection Erick Power M.D. 10/05/2020 Allergy Injection 2 Or More Injection Erick Power M.D. 09/07/2020 Allergy Injection 2 Or More Injection Erick Power M.D. 08/16/2020 Allergy Injection 2 Or More Injection Erick Power M.D. 07/27/2020 Allergy Injection 2 Or More Injection Erick Power M.D. 07/08/2020 Allergy Injection 2 Or More Injection Erick Power M.D. 06/10/2020 Allergy Injection 2 Or More Injection Erick Power M.D. 05/17/2020 Allergy Injection 2 Or More Injection Erick Power M.D. 04/27/2020 Allergy Injection 2 Or More Injection Erick Power M.D. 04/05/2020 Allergy Injection 2 Or More Injection Erick Power M.D. 03/17/2020 Allergy Injection 2 Or More Injection Erick Power M.D. 02/25/2020 Allergy Injection 2 Or More Injection Erick Power M.D. 02/05/2020 Allergy Injection 2 Or More Injection Erick Power M.D. 01/12/2020 Allergy Injection 2 Or More Injection Erick Power M.D. 12/21/2019 Allergy Injection 2 Or More Injection Erick Power M.D. 12/02/2019 Allergy Injection 2 Or More Injection Erick Power M.D. 11/11/2019 Allergy Injection 2 Or More Injection Erick Power M.D. 10/21/2019 Allergy Injection 2 Or More Injection Erick Power M.D. 09/30/2019 Allergy Injection 2 Or More Injection Erick Power M.D. 09/09/2019 Allergy Injection 2 Or More Injection Erick Power M.D. 08/19/2019 Allergy Injection 2 Or More Injection Erick Power M.D. 07/29/2019 Allergy Injection 2 Or More Injection Irina Cordero OUTSIDE MACHINIST SUPERVISOR-C 07/08/2019 Allergy Injection 2 Or More Injection Erick Power M.D. 07/08/2019 Allergy Injection 2 Or More Injection Erick Power M.D. 06/10/2019 Allergy Injection 2 Or More Injection Erick Power M.D. 05/20/2019 Allergy Injection 2 Or More Injection Erick Power M.D. 04/22/2019 Allergy Injection 2 Or More Injection Erick Power M.D. 04/14/2019 Allergy Injection 2 Or More Injection Erick Power M.D. 04/01/2019 Allergy Injection 2 Or More Injection Erick Power M.D. 02/18/2019 Allergy Injection 2 Or More Injection Erick Power M.D. 01/28/2019 Allergy Injection 2 Or More Injection Erick Power M.D. 01/08/2019 Immunizations Description No Information Available Vital Signs Date Vital Result Comment 09/09/2020 8:57am Weight 226.38 lb Height 69.5 inches 5'9.50" Heart Rate 69 /min Respiratory Rate 18 /min BP Systolic 145 mmHg BP Diastolic 80 mmHg BMI (Body Mass Index) 32.9 kg/m2 01/28/2020 9:03am Weight 213.38 lb Height 71 inches 5'11" Heart Rate 80 /min Respiratory Rate 18 /min BP Systolic 128 mmHg BP Diastolic 80 mmHg BMI (Body Mass Index) 29.8 kg/m2 Results Description No Information Available Procedures Date Code Description Status 02/07/2021 61562 Allergy Antigens Single Or Multi ple Completed 01/31/2021 47695 Allergy Injection 2 Or More Comp leted 01/09/2021 96465 Allergy Injection 2 Or More Comp leted 12/19/2020 07560 Allergy Injection 2 Or More Comp leted 12/05/2020 03194 Allergy Injection 2 Or More Comp leted 11/28/2020 72490 Allergy Injection 2 Or More Comp leted 11/21/2020 01169 Allergy Injection 2 Or More Comp leted 10/05/2020 30962 Allergy Injection 2 Or More Comp leted 09/09/2020 94925 Office/Outpatient Established Lo w MDM 20-29 Min Completed 09/09/2020 54336 Bronchodilation Resp onsiveness Spirometry Pre/Post Bronchodil Adm Completed 09/07/2020 16629 Allergy Injection 2 Or More Comp leted 08/16/2020 90972 Allergy Injection 2 Or More Comp leted Medical Devices Description No Information Available Encounters Type Date Location Provider Dx Diagnosis Office Visit 09/09/2020 9:00a Main Office Erick Power M.D. J45.30 Mild persistent asthma, uncomplicated J30.1 Allergic rhinitis due to rosalia dalton J30.89 Other allergic rhinitis Assessments Date Code Description Provider 02/07/2021 J30.1 Allergic rhinitis due to pollen Erick Power M.D. 02/07/2021 J30.89 Other allergic rhinitis Erick Power M.D. Plan of Treatment Future Appointment(s):* 02/21/2021 9:00 am - Allergy Injection at Main Office 01/28/2020 - MANOJ Dubois* J45.30 Mild persistent asthma, uncomplicated * Recommendations:* The patient should continue on daily ICS/LABA. I explained that inhaled steroids should be used consistently to be effective. I also explained the risks and benefits associated with use of inhaled steroids and proper MDI technique. The patient should still use albuterol prn cough and wheezing and for activity prophylaxis. If patient continues to do clinically well, may consider reducing his Symbicort to 60/4.5. * J30.1 Allergic rhinitis due to pollen* Recommendations:* Because of the severity of pollen allergy problem I reviewed and suggested effective allergy avoidance measures. The patient should stay on immunotherapy as per protocol. Risks and benefits associated with allergy injections were reviewed. Should use antihistamine prn itchy eyes and sneezing. * J30.89 Other allergic rhinitis to dust mites and molds* Recommendations:* See recommendations above. * All * Follow up:* 6 months. Sooner if needed. Functional Status Description No Information Available Mental Status Description No Information Available Referrals Description No Information Available
--- OUTSIDE RECORDS SUMMARY | 2021-03-16 07:27 | CCD ---
Continuity of Care Document (CCD) Created on: 02/21/2021 Ángel White External Reference #: [id number] : [id number] Sex: Male Author Author Ángel POWER M.D. Organization Unknown Address [address], [place] [address] Phone [phone] Care Team Providers Care Sanding Line Operator Name Role Phone Darrell Ortez DO AUTM [phone] Problems Active Problems Provider Date Mild persistent asthma Onset: 11/15/2015 Allergic rhinitis due to pollen Onset: 0 11/15/2015 Note: On IT. 4+ reaction to ragweed on s cratch test. 4+ reaction to tree pollen and 4++ reaction to various weeds on intradermal test completed in 2015. Allergic rhinitis due to house dust mite Irina [place], WIRELESS SALES CONSULTANT- C Onset: 07/13/2019 Note: On IT. 4+ reaction to Dust Mites o n intradermal test completed in 2015. Allergic rhinitis caused by mold Irina Gil, WIRELESS SALES CONSULTANT-C Onset: 07/13/2019 Note: On IT. 4+ reaction to Molds on int radermal test completed in 2015. Social History Type Date Description Comments Sex Unknown Tobacco Use Reviewed: 09/09/20 Patient has never smoked Smoking Status Reviewed: 09/09/20 Patient has never smoked Allergies and adverse reactions Active Allergies Criticality Reaction | Severity Comments [...] 2 Or More Injection Erick Power M.D. 02/21/2021 Allergy Injection 2 Or More Injection Erick Power M.D. 01/31/2021 Allergy Injection 2 Or More Injection Erick Power M.D. 01/09/2021 Allergy Injection 2 Or More Injection Erick Power M.D. 12/19/2020 Allergy Injection 2 Or More [...] 07/29/2019 Allergy Injection 2 Or More Injection THEO Taylor-Contreras 07/08/2019 Allergy Injection 2 Or More Injection [...] Information Available Procedures Date Code Description Status 02/21/2021 09364 Allergy Injection 2 Or More Comp leted 02/07/2021 83252 Allergy Antigens Single Or Multi ple Completed 01/31/2021 85011 Allergy Injection 2 Or More Comp leted 01/09/2021 28679 Allergy Injection 2 Or More Comp leted 12/19/2020 87284 Allergy Injection 2 Or More Comp leted 12/05/2020 23286 Allergy Injection 2 Or More Comp leted 11/28/2020 70161 Allergy Injection 2 Or More Comp leted 11/21/2020 10876 Allergy Injection 2 Or More Comp leted 10/05/2020 45483 Allergy Injection 2 Or More Comp leted 09/09/2020 31384 Office/Outpatient Established Lo w MDM 20-29 Min Completed 09/09/2020 35368 Bronchodilation Resp onsiveness Spirometry Pre/Post Bronchodil Adm Completed 09/07/2020 99172 Allergy Injection 2 Or More Comp leted Medical Devices Description No Information Available Encounters Type Date Location Provider Dx Diagnosis Office Visit 09/09/2020 9:00a Main Office Erick Power M.D. J45.30 Mild persistent asthma, uncomplicated J30.1 Allergic rhinitis due to rosalia dalton J30.89 Other allergic rhinitis Assessments Date Code Description Provider 02/21/2021 J30.1 Allergic rhinitis due to pollen Erick Power M.D. 02/21/2021 J30.89 Other allergic rhinitis Erick Power M.D. Plan of Treatment Future Appointment(s):* 03/14/2021 8:40 am - Allergy Injection at Main Office [...]
--- OUTSIDE RECORDS SUMMARY | 2021-03-16 07:27 | CCD ---
Author Author [employer] Organization [employer] [facility] Address Unknown Phone Unavailable Care Team Providers Care Electrical/Instrument Technician Name Role Phone David John Unavailable PROBLEMS Type Condition ICD9-CM Code LUU89-SK Code Onset Dates Condition S tatus W/U Status Risk SNOMED Code Notes Problem Special screening for malignant neoplasm of prostate V76.44 Active confirmed 070210493 Problem PSA elevation R97.20 Active confirmed 644211 005 Problem Prostate cancer C61 Active confirmed 2549 58369 Problem UTI (urinary tract infection) N39.0 Active confirm ed 98682770 Problem Kidney stone 592.0 Active confirmed 1643202 7 Problem Preop testing Z01.818 Active confirmed 89398 9001 Problem Calculus of kidney N20.0 Active confirmed 9 6025269 Problem Lung nodule seen on imaging study R91.1 Active confirmed 528466150 Problem History of prostate cancer Z85.46 Active confirmed 131643814 Problem Rising PSA following treatment for malignant clarice plasm of prostate R97.21 Active confirmed 129699885 Problem Kidney stone N20.0 Active confirmed 7421679 7 ALLERGIES Allergen (clinical drug ingredient) Drug/Non Drug Allergy do cumented on EMR Reaction Allergy Type Onset Date Status IV dye Rash Non Drug Allergy Active ENCOUNTERS from 1950 to 2021-02-23 Encounter Location Date Provider Diagnosis [facility] [address] [phone] [place] [address] 07 Feb, 2021 John Hernandez Kidney stone N20.0 and Preop testing Z01 .818 IMMUNIZATIONS No Information SOCIAL HISTORY Sex Assigned At : Social History Observation Description Sex Assigned At Unknown Sexual Hx: Question Answer Notes Had sex in the last 12 months (vaginal, oral, or anal)? No Have you ever had an STD? No REASON FOR REFERRAL No Information VITAL SIGNS No information MEDICATIONS Medication SIG (Take, Route, Frequency, Duration) [...] days Mar, Active PROCEDURES No Information RESULTS No Results REASON FOR VISIT Urine, KUB Results MEDICAL (GENERAL) HISTORY Type Description Date Medical History kidney stones Medical History Hiatal hernia Medical History Esophageal reflux Medical History Asthma Medical History Hay fever/allergies Medical History Diverticulosis Surgical History hemorrhoidectomy Surgical History ESWL Surgical History Ureterosopy/stone extraction Surgical History truss bx 07/09/14 Surgical History prostatectomy 12/17/2017 Hospitalization History [facility] hosptial for Kidney stone- passe d stone 01/2020 Goals Section No Information Health Concerns No Information MEDICAL EQUIPMENT No Information MENTAL STATUS No Information FUNCTIONAL STATUS No Information ASSESSMENTS Encounter Date Diagnosis Assessment Notes Treatment Notes Treatm ent Clinical Notes Feb, Kidney stone (ICD-10 - N20.0) Feb, Preop testing (ICD-10 - Z01.818) PLAN OF TREATMENT Treatment Notes Test Name Order Date CBC - Complete Blood Count 2021-02-16 Basic Metabolic Profile (BMP) 2021-02-16 [facility] Chest, 2 view (PA\Lat) 2021-02-16 Electrocardiogram (EKG) 2021-02-16 Next Appt Details Provider Name:Anabelle Warren, 2021-03-13 5 09:00:00 AM, [address], , [place], [address], Provider Name:John Ryan Hernandez, 10:15:00 AM, [address], , [place], [address], Insurance Providers Payer Name Payer Address Payer Phone Insured Name Patient Relati onship to Insured Coverage Start Date Coverage End Date MEDICARE Part A and B [address] [facility] [phone] ARYAN WHITE 2017 [facility] OPTIONS [facility] CLAIM DIV [address] [facility] [phone] ARYAN WHITE
--- OUTSIDE RECORDS SUMMARY | 2021-03-16 07:27 | CCD | Continuity of Care Document ---
Author Author Ángel POWER M.D. Organization Unknown Address [address] [place] [address] Phone [phone] Care Team Providers Care Adult Basic Education Teacher Name Role Phone Darrell Ortez DO AUTM [phone] Problems Active Problems Provider Date Mild persistent asthma Onset: 11/15/2015 Allergic rhinitis due to pollen Onset: 0 11/15/2015 Note: On IT. 4+ reaction to ragweed on s cratch test. 4+ reaction to tree pollen and 4++ reaction to various weeds on intradermal test completed in 2015. Allergic rhinitis due to house dust mite Irina [place], MANAGER RELIABILITY- C Onset: 07/13/2019 Note: On IT. 4+ reaction to Dust Mites o n intradermal test completed in 2015. Allergic rhinitis caused by mold Irina Gil, MANAGER RELIABILITY-C Onset: 07/13/2019 Note: On IT. 4+ reaction [...] 09/09/2019 Allergy Injection 2 Or More Injection Eirck Power M.D. 08/19/2019 Allergy Injection 2 Or More Injection Erick Power M.D. 07/29/2019 Allergy Injection 2 Or More Injection Irina Cordero MANAGER RELIABILITY-C 07/08/2019 Allergy Injection 2 Or More Injection [...] Information Available Procedures Date Code Description Status 01/31/2021 21392 Allergy Injection 2 Or More Comp leted 01/09/2021 56712 Allergy Injection 2 Or More Comp leted 12/19/2020 58125 Allergy Injection 2 Or More Comp leted 12/05/2020 99858 Allergy Injection 2 Or More Comp leted 11/28/2020 65341 Allergy Injection 2 Or More Comp leted 11/21/2020 60625 Allergy Injection 2 Or More Comp leted 10/05/2020 75240 Allergy Injection 2 Or More Comp leted 09/09/2020 22975 Office/Outpatient Established Lo w MDM 20-29 Min Completed 09/09/2020 56168 Bronchodilation Resp onsiveness Spirometry Pre/Post Bronchodil Adm Completed 09/07/2020 60336 Allergy Injection 2 Or More Comp leted 08/16/2020 87874 Allergy Injection 2 Or More Comp leted Medical Devices Description No Information Available Encounters Type Date Location Provider Dx Diagnosis Office Visit 09/09/2020 9:00a Main Office Erick Power M.D. J45.30 Mild persistent asthma, uncomplicated J30.1 Allergic rhinitis due to rosalia dalton J30.89 Other allergic rhinitis Assessments Date Code Description Provider 01/31/2021 J30.1 Allergic rhinitis due to pollen Erick Power M.D. 01/31/2021 J30.89 Other allergic rhinitis Erick Power M.D. [...]
--- OUTSIDE RECORDS SUMMARY | 2021-03-16 07:27 | CCD | Continuity of Care Document ---
Author Author Ángel POWER M.D. Organization Unknown Address [address], [place] [address] Phone [phone] Care Team Providers Care Drop Board Worker Name Role Phone Darrell Ortez DO AUTM [phone] Problems Active Problems Provider Date Mild persistent asthma Onset: 11/15/2015 Allergic rhinitis due to pollen Onset: 0 11/15/2015 Note: On IT. 4+ reaction to ragweed on s cratch test. 4+ reaction to tree pollen and 4++ reaction to various weeds on intradermal test completed in 2015. Allergic rhinitis due to house dust mite Irina [place], INSTRUCTOR BUSINESS EDUCATION- C Onset: 07/13/2019 Note: On IT. 4+ reaction to Dust Mites o n intradermal test completed in 2015. Allergic rhinitis caused by mold Irina Gil, INSTRUCTOR BUSINESS EDUCATION-C Onset: 07/13/2019 Note: On IT. 4+ reaction [...] Allergy Injection 2 Or More Injection THEO Taylor-C 07/08/2019 Allergy Injection 2 Or More Injection [...] Information Available Procedures Date Code Description Status 01/09/2021 12621 Allergy Injection 2 Or More Comp leted 12/19/2020 72609 Allergy Injection 2 Or More Comp leted 12/05/2020 52401 Allergy Injection 2 Or More Comp leted 11/28/2020 06312 Allergy Injection 2 Or More Comp leted 11/21/2020 37119 Allergy Injection 2 Or More Comp leted 10/05/2020 95374 Allergy Injection 2 Or More Comp leted 09/09/2020 89304 Office/Outpatient Established Lo w MDM 20-29 Min Completed 09/09/2020 29200 Bronchodilation Resp onsiveness Spirometry Pre/Post Bronchodil Adm Completed 09/07/2020 49321 Allergy Injection 2 Or More Comp leted 08/16/2020 61001 Allergy Injection 2 Or More Comp leted 07/27/2020 07153 Allergy Injection 2 Or More Comp leted Medical Devices Description No Information Available Encounters Type Date Location Provider Dx Diagnosis Office Visit 09/09/2020 9:00a Main Office Erick Power M.D. J45.30 Mild persistent asthma, uncomplicated J30.1 Allergic rhinitis due to rosalia dalton J30.89 Other allergic rhinitis Assessments Date Code Description Provider 01/09/2021 J30.1 Allergic rhinitis due to pollen Erick Power M.D. 01/09/2021 J30.89 Other allergic rhinitis Erick Power M.D. Plan of Treatment Future Appointment(s):* 01/30/2021 9:00 am - Allergy Injection at Main [...]
--- OUTSIDE RECORDS SUMMARY | 2021-03-16 07:27 | CCD | Continuity of Care Document ---
Author Author Ángel POWER M.D. Organization Unknown Address [address], [place] [address] Phone [phone] Care Team Providers Care Tin Stacker Name Role Phone Darrell Ortez DO AUTM [phone] Problems Active Problems Provider Date Mild persistent asthma Onset: 11/15/2015 Allergic rhinitis due to pollen Onset: 0 11/15/2015 Note: On IT. 4+ reaction to ragweed on s cratch test. 4+ reaction to tree pollen and 4++ reaction to various weeds on intradermal test completed in 2015. Allergic rhinitis due to house dust mite Irina [place], MEASUREMENT SUPERVISOR- C Onset: 07/13/2019 Note: On IT. 4+ reaction to Dust Mites o n intradermal test completed in 2015. Allergic rhinitis caused by mold Irina Gil, MEASUREMENT SUPERVISOR-C Onset: 07/13/2019 Note: On IT. 4+ [...] 2 Or More Injection Erick Power M.D. 03/14/2021 Allergy Injection 2 Or More Injection Erick [...] Information Available Procedures Date Code Description Status 03/14/2021 79741 Allergy Injection 2 Or More Comp leted 02/21/2021 75533 Allergy Injection 2 Or More Comp leted 02/07/2021 18394 Allergy Antigens Single Or Multi ple Completed 01/31/2021 96508 Allergy Injection 2 Or More Comp leted 01/09/2021 17182 Allergy Injection 2 Or More Comp leted 12/19/2020 50813 Allergy Injection 2 Or More Comp leted 12/05/2020 93213 Allergy Injection 2 Or More Comp leted 11/28/2020 34869 Allergy Injection 2 Or More Comp leted 11/21/2020 16904 Allergy Injection 2 Or More Comp leted 10/05/2020 29076 Allergy Injection 2 Or More Comp leted Medical Devices Description No Information Available Encounters Description No Information Available Assessments Date Code Description Provider 03/14/2021 J30.1 Allergic rhinitis due to pollen Erick Power M.D. 03/14/2021 J30.89 Other allergic rhinitis Erick Power M.D. Plan of Treatment 09/09/2020 - Erick Power M.D.* J45.30 Mild persistent asthma, uncomplicated* Recommendations:* The patient should continue on daily [...] J30.1 Allergic rhinitis due to pollen* Recommendations:* Should complete 5 years of IT. May stop after. I still reviewed and suggested effective allergy avoidance measures. Should use antihistamine prn itchy eyes and sneezing. * J30.89 Other allergic rhinitis* Recommendations:* I reviewed effective allergy avoidance measures for dust mites. See recommendations above. * All * Follow up:* 12 months. Sooner if needed. Functional Status Description No Information Available Mental Status Description No Information Available Referrals Description No Information Available
--- OUTSIDE RECORDS SUMMARY | 2021-03-16 07:27 | CCD | Continuity of Care Document ---
Author Author Ángel POWER M.D. Organization Unknown Address [address], [address], [place] [address] Phone [phone] Care Team Providers Care Wood Tank Builder Name Role Phone Darrell Ortez DO AUTM [phone] Problems Active Problems Provider Date Mild persistent asthma Onset: 11/15/2015 Allergic rhinitis due to pollen Onset: 0 11/15/2015 Note: On IT. 4+ reaction to ragweed on s cratch test. 4+ reaction to tree pollen and 4++ reaction to various weeds on intradermal test completed in 2015. Allergic rhinitis due to house dust mite Irina [place], CUSTOMS ENTRY WRITER- C Onset: 07/13/2019 Note: On IT. 4+ reaction to Dust Mites o n intradermal test completed in 2015. Allergic rhinitis caused by mold Irina Gil, CUSTOMS ENTRY WRITER-C Onset: 07/13/2019 Note: On IT. 4+ reaction to Molds on int radermal test completed in 2015. Social History Type Date Description Comments Sex Unknown Tobacco Use Reviewed: 09/09/20 Patient has never smoked Smoking Status Reviewed: 09/09/20 Patient has never smoked Allergies, Adverse Reactions, Alerts Active Allergies Reaction Severity Comments Date IV Contrast Dye itching, throat swelling 01/03/2019 Medications Active Medications SIG Qnty Indications [...] Injection 2 Or More Injection Irina Cordero CUSTOMS ENTRY WRITER-C 07/08/2019 Allergy Injection 2 Or More Injection [...] Information Available Procedures Date Code Description Status 12/19/2020 30323 Allergy Injection 2 Or More Comp leted 12/05/2020 21023 Allergy Injection 2 Or More Comp leted 11/28/2020 96344 Allergy Injection 2 Or More Comp leted 11/21/2020 49813 Allergy Injection 2 Or More Comp leted 10/05/2020 27208 Allergy Injection 2 Or More Comp leted 09/09/2020 26506 Office/Outpatient Established Lo w MDM 20-29 Min Completed 09/09/2020 87110 Bronchodilation Resp onsiveness Spirometry Pre/Post Bronchodil Adm Completed 09/07/2020 61714 Allergy Injection 2 Or More Comp leted 08/16/2020 01015 Allergy Injection 2 Or More Comp leted 07/27/2020 95604 Allergy Injection 2 Or More Comp leted 07/09/2020 34423 Allergy Antigens Single Or Multi ple Completed 07/08/2020 85919 Allergy Injection 2 Or More Comp leted Medical Devices Description No Information Available Encounters Type Date Location Provider Dx Diagnosis Office Visit 09/09/2020 9:00a Main Office Erick Power M.D. J45.30 Mild persistent asthma, uncomplicated J30.1 Allergic rhinitis due to rosalia dalton J30.89 Other allergic rhinitis Assessments Date Code Description Provider 12/19/2020 J30.1 Allergic rhinitis due to pollen Erick Power M.D. 12/19/2020 J30.89 Other allergic rhinitis Erick Power M.D. Plan of Treatment Future Appointment(s):* 01/09/2021 8:30 am - Allergy Injection at Main Office * 12/26/2020 9:10 am - Allergy Injection at Main Office [...]
--- OUTSIDE RECORDS SUMMARY | 2021-03-16 07:28 | CCD ---
Author Author [facility] Organization [facility] Address Unknown Phone Unavailable Care Team Providers Care Academic Tutor Name Role Phone ASIA POWER MD Unavailable Unavailable ASIA POWER MD Unavailable Unavailable ASIA POWER MD Unavailable Unavailable ASIA POWER MD Unavailable Unavailable ASIA POWER MD Unavailable Unavailable ASIA POWER MD Unavailable Unavailable ASIA POWER MD Unavailable Unavailable ASIA POWER MD Unavailable Unavailable ASIA POWER MD Unavailable Unavailable ASIA POWER MD Unavailable Unavailable ASIA POWER MD Unavailable Unavailable ASIA POWER MD Unavailable Unavailable ASIA POWER MD Unavailable Unavailable ASIA POWER MD Unavailable Unavailable ASIA POWER MD Unavailable Unavailable ASIA POWER MD Unavailable Unavailable ASIA POWER MD Unavailable Unavailable ASIA POWER MD Unavailable Unavailable CHROSTOWSKI, ASIA MD Unavailable Unavailable CHROSTOWSKI, ASIA MD Unavailable Unavailable CHROSTOWSKI, ASIA MD Unavailable Unavailable CHROSTOWSKI, ASIA MD Unavailable Unavailable CHROSTOWSKI, ASIA MD Unavailable Unavailable CHROSTOWSKI, ASIA MD Unavailable Unavailable CHROSTOWSKI, ASIA MD Unavailable Unavailable CHROSTOWSKI, ASIA MD Unavailable Unavailable CHROSTOWSKI, ASIA MD Unavailable Unavailable CHROSTOWSKI, ASIA MD Unavailable Unavailable CHROSTOWSKI, ASIA MD Unavailable Unavailable CHROSTOWSKI, ASIA MD Unavailable Unavailable CHROSTOWSKI, ASIA MD Unavailable Unavailable CHROSTOWSKI, ASIA MD Unavailable Unavailable CHROSTOWSKI, ASIA MD Unavailable Unavailable CHROSTOWSKI, ASIA MD Unavailable Unavailable CHROSTOWSKI, ASIA MD Unavailable Unavailable CHROSTOWSKI, ASIA MD Unavailable Unavailable CHROSTOWSKI, ASIA MD Unavailable Unavailable CHROSTOWSKI, ASIA MD Unavailable Unavailable CHROSTOWSKI, ASIA MD Unavailable Unavailable TURRIN, AG Unavailable Unavailable TURRIN, AG Unavailable Unavailable TURRIN, AG Unavailable Unavailable TURRIN, AG Unavailable Unavailable Pérez, P Darrell DO Unavailable Unavailable Pérez, P Darrell DO Unavailable Unavailable Pérez, P Darrell DO Unavailable Unavailable Pérez, P Darrell DO Unavailable Unavailable Pérez, P Darrell DO Unavailable Unavailable Pérez, P Darrell DO Unavailable Unavailable Pérez, P Darrell DO Unavailable Unavailable Pérez, P Darrell DO Unavailable Unavailable Pérez, P Darrell DO Unavailable Unavailable Pérez, P Darrell DO Unavailable Unavailable Pérez, P Darrell DO Unavailable Unavailable Pérez, P Darrell DO Unavailable Unavailable Pérez, P Darrell DO Unavailable Unavailable Pérez, P Darrell DO Unavailable Unavailable Pérez, P Darrell DO Unavailable Unavailable Pérez, P Darrell DO Unavailable Unavailable Pérez, P Darrell DO Unavailable Unavailable Pérez, P Darrell DO Unavailable Unavailable Pérez, P Darrell DO Unavailable Unavailable Pérez, P Darrell DO Unavailable Unavailable Pérez, P Darrell DO Unavailable Unavailable Pérez, P Darrell DO Unavailable Unavailable Pérez, P Darrell DO Unavailable Unavailable Pérez, P Darrell DO Unavailable Unavailable Pérez, P Darrell DO Unavailable Unavailable Pérez, P Darrell DO Unavailable Unavailable Préez, P Darrell DO Unavailable Unavailable Pérez, P Darrell DO Unavailable Unavailable Pérez, P Darrell DO Unavailable Unavailable Pérez, P Darrell DO Unavailable Unavailable Pérez, P Darrell DO Unavailable Unavailable Pérez, P Darrell DO Unavailable Unavailable Pérez, P Darrell DO Unavailable Unavailable Pérez, P Darrell DO Unavailable Unavailable Pérez, P Darrell DO Unavailable Unavailable Pérez, P Darrell DO Unavailable Unavailable Pérez, P Darrell DO Unavailable Unavailable Pérez, P Darrell DO Unavailable Unavailable Pérez, P Darrell DO Unavailable Unavailable Pérez, P Darrell DO Unavailable Unavailable Pérez, P Darrell DO Unavailable Unavailable Pérez, P Darrell DO Unavailable Unavailable Pérez, P Darrell DO Unavailable Unavailable Pérez, P Darrell DO Unavailable Unavailable Péerz, P Darrell DO Unavailable Unavailable Préez, P Darrell DO Unavailable Unavailable Pérez, P Darrell DO Unavailable Unavailable Pérez, P Darrell DO Unavailable Unavailable Pérez, P Darrell DO Unavailable Unavailable Pérez, P Darrell DO Unavailable Unavailable Pérez, P Darrell DO Unavailable Unavailable Pérez, P Darrell DO Unavailable Unavailable Pérez, P Darrell DO Unavailable Unavailable Pérez, P Darrell DO Unavailable Unavailable Pérez, P Darrell DO Unavailable Unavailable Pérez, P Darrell DO Unavailable Unavailable Pérez, P Darrell DO Unavailable Unavailable Pérez, P Darrell DO Unavailable Unavailable Pérez, P Darrell DO Unavailable Unavailable Pérez, P Darrell DO Unavailable Unavailable Pérez, P Darrell DO Unavailable Unavailable Pérez, P Darrell DO Unavailable Unavailable Pérez, P Darrell DO Unavailable Unavailable Pérez, P Darrell DO Unavailable Unavailable Pérez, P Darrell DO Unavailable Unavailable Pérez, P Darrell DO Unavailable Unavailable Pérez, P Darrell DO Unavailable Unavailable Pérez, P Darrell DO Unavailable Unavailable Pérez, P Darrell DO Unavailable Unavailable Pérez, P Darrell DO Unavailable Unavailable Pérez, P Darrell DO Unavailable Unavailable Pérez, P Darrell DO Unavailable Unavailable Pérez, P Darrell DO Unavailable Unavailable Pérez, P Darrell DO Unavailable Unavailable Pérez, P Darrell DO Unavailable Unavailable Pérez, P Darrell DO Unavailable Unavailable Pérez, P Darrell DO Unavailable Unavailable Pérez, P Darrell DO Unavailable Unavailable Pérez, P Darrell DO Unavailable Unavailable Pérez, P Darrell DO Unavailable Unavailable Pérez, P Darrell DO Unavailable Unavailable Éprez, P Darrell DO Unavailable Unavailable Pérez, P Darrell DO Unavailable Unavailable Pérez, P Darrell DO Unavailable Unavailable Pérez, P Darrell DO Unavailable Unavailable Pérez, P Darrell DO Unavailable Unavailable Pérez, P Darrell DO Unavailable Unavailable Pérez, P Darrell DO Unavailable Unavailable Pérez, P Darrell DO Unavailable Unavailable Pérez, P Darrell DO Unavailable Unavailable Pérez, P Darrell DO Unavailable Unavailable Pérez, P Darrell DO Unavailable Unavailable Pérez, P Darrell DO Unavailable Unavailable Pérez, P Darrell DO Unavailable Unavailable Pérez, P Darrell DO Unavailable Unavailable Pérez, P Darrell DO Unavailable Unavailable Pérez, P Darrell DO Unavailable Unavailable Pérez, P Darrell DO Unavailable Unavailable Pérez, P Darrell DO Unavailable Unavailable Pérez, P Darrell DO Unavailable Unavailable Pérez, P Darrell DO Unavailable Unavailable Pérez, P Darrell DO Unavailable Unavailable Pérez, P Darrell DO Unavailable Unavailable Pérez, P Darrell DO Unavailable Unavailable Pérez, P Darrell DO Unavailable Unavailable Pérez, P Darrell DO Unavailable Unavailable Pérez, P Darrell DO Unavailable Unavailable Pérez, P Darrell DO Unavailable Unavailable Pérez, P Darrell DO Unavailable Unavailable Pérez, P Darrell DO Unavailable Unavailable Pérez, P Darrell DO Unavailable Unavailable Pérez, P Darrell DO Unavailable Unavailable Pérez, P Darrell DO Unavailable Unavailable Pérez, P Darrell DO Unavailable Unavailable Pérez, P Darrell DO Unavailable Unavailable Pérez, P Darrell DO Unavailable Unavailable Pérez, P Darrell DO Unavailable Unavailable Pérez, P Darrell DO Unavailable Unavailable Pérez, P Darrell DO Unavailable Unavailable Pérez, P Darrell DO Unavailable Unavailable Pérez, P Darrell DO Unavailable Unavailable Pérez, P Darrell DO Unavailable Unavailable Pérez, P Darrell DO Unavailable Unavailable Pérez, P Darrell DO Unavailable Unavailable Pérez, P Darrell DO Unavailable Unavailable Pérez, P Darrell DO Unavailable Unavailable Pérez, P Darrell DO Unavailable Unavailable Pérez, P Darrell DO Unavailable Unavailable Pérez, P Darrell DO Unavailable Unavailable Pérez, P Darrell DO Unavailable Unavailable Pérez, P Darrell DO Unavailable Unavailable Pérez, P Darrell DO Unavailable Unavailable Pérez, P Darrell DO Unavailable Unavailable Pérez, P Darrell DO Unavailable Unavailable Pérez, P Darrell DO Unavailable Unavailable Pérez, P Darrell DO Unavailable Unavailable Pérez, P Darrell DO Unavailable Unavailable Pérez, P Darrell DO Unavailable Unavailable Pérez, P Darrell DO Unavailable Unavailable Pérez, P Darrell DO Unavailable Unavailable Pérez, P Darrell DO Unavailable Unavailable Pérez, P Darrell DO Unavailable Unavailable Edmond, A Tamara PA Unavailable Unavailable Edmond, A Tamara PA Unavailable Unavailable Edmond, A Tamara PA Unavailable Unavailable Edmond, A Tamara PA Unavailable Unavailable Edmond, A Tamara PA Unavailable Unavailable Edmond, A Tamara PA Unavailable Unavailable Edmond, A Tamara PA Unavailable Unavailable Edmond, A Tamara PA Unavailable Unavailable Edmond, A Tamara PA Unavailable Unavailable Edmond, A Tamara PA Unavailable Unavailable Edmond, A Tamara PA Unavailable Unavailable Edmond, A Tamara PA Unavailable Unavailable Edmond, A Tamara PA Unavailable Unavailable Edmond, A Tamara PA Unavailable Unavailable Edmond, A Tamara PA Unavailable Unavailable Edmond, A Tamara PA Unavailable Unavailable Edmond, A Tamara PA Unavailable Unavailable Edmond, A Tamara PA Unavailable Unavailable Edmond, A Tamara PA Unavailable Unavailable Edmond, A Tamara PA Unavailable Unavailable Edmond, A Tamara PA Unavailable Unavailable Edmond, A Tamara PA Unavailable Unavailable Edmond, A Tamara PA Unavailable Unavailable Edmond, A Tamara PA Unavailable Unavailable Edmond, A Tamara PA Unavailable Unavailable Edmond, A Tamara PA Unavailable Unavailable Edmond, A Tamara PA Unavailable Unavailable Edmond, A Tamara PA Unavailable Unavailable Edmond, A Tamara PA Unavailable Unavailable Edmond, A Tamara PA Unavailable Unavailable Edmond, A Tamara PA Unavailable Unavailable Edmond, A Tamara PA Unavailable Unavailable Edmond, A Tamara PA Unavailable Unavailable Edmond, A Tamara PA Unavailable Unavailable Edmond, A Tamara PA Unavailable Unavailable Edmond, A Tamara PA Unavailable Unavailable Edmond, A Tamara PA Unavailable Unavailable Edmond, A Tamara PA Unavailable Unavailable Edmond, A Tamara PA Unavailable Unavailable Edmond, A Tamara PA Unavailable Unavailable Edmond, A Tamara PA Unavailable Unavailable Edmond, A Tamara PA Unavailable Unavailable Edmond, A Tamara PA Unavailable Unavailable Edmond, A Tamara PA Unavailable Unavailable Edmond, A Tamara PA Unavailable Unavailable Edmond, A Tamara PA Unavailable Unavailable Edmond, A Tamara PA Unavailable Unavailable Edmond, A Tamara PA Unavailable Unavailable Edmond, A Tamara PA Unavailable Unavailable Edmond, A Tamara PA Unavailable Unavailable Edmond, A Tamara PA Unavailable Unavailable Edmond, A Tamara PA Unavailable Unavailable Edmond, A Tamara PA Unavailable Unavailable Overholt, T Emiliano PA Unavailable Unavailable Overholt, T Emiliano PA Unavailable Unavailable Overholt, T Emiliano PA Unavailable Unavailable Overholt, T Emiliano PA Unavailable Unavailable Overholt, T Emiliano PA Unavailable Unavailable Overholt, T Emiliano PA Unavailable Unavailable Overholt, T Emiliano PA Unavailable Unavailable Overholt, T Emiliano PA Unavailable Unavailable Overholt, T Emiliano PA Unavailable Unavailable Overholt, T Emiliano PA Unavailable Unavailable Overholt, T Emiliano PA Unavailable Unavailable Overholt, T Emiliano PA Unavailable Unavailable Overholt, T Emiliano PA Unavailable Unavailable Overholt, T Emiliano PA Unavailable Unavailable Overholt, T Emiliano PA Unavailable Unavailable Overholt, T Emiliano PA Unavailable Unavailable Re-disclosure Warning The records that you are about to access may contain information from federally-assisted alcohol or drug abuse programs. If such information is present, then the following federally mandated warning applies: This information has been disclosed to you from records protected by federal confidentiality rules (42 CFR part 2). The federal rules prohibit you from making any further disclosure of this information unless further disclosure is expressly permitted by the written consent of the person to whom it pertains or as otherwise permitted by 42 CFR part 2. A general authorization for the release of medical or other information is NOT sufficient for this purpose. The Federal rules restrict any use of the information to criminally investigate or prosecute any alcohol or drug abuse patient.The records that you are about to access may contain highly sensitive health information, the redisclosure of which is protected by Article 27-F of the [facility] Public Health law. If you continue you may have access to information: Regarding HIV / AIDS; Provided by facilities licensed or operated by the [facility] Office of Mental Health; or Provided by the [facility] Office for People With Developmental Disabilities. If such information is present, then the following [facility] mandated warning applies: This information has been disclosed to you from confidential records which are protected by state law. State law prohibits you from making any further disclosure of this information without the specific written consent of the person to whom it pertains, or as otherwise permitted by law. Any unauthorized further disclosure in violation of state law may result in a fine or assisted sentence or both. A general authorization for the release of medical or other information is NOT sufficient authorization for further disc losure. Allergies and Adverse Reactions Type Description Substance Reaction Status Data Source(s ) Drug allergy CT/IVP IODINATED CONTRAST CT/IVP IODINATED CONTRAST ANAP HYLAXIS [facility] Propensity to adverse reactions ISOVUE-300 ISOVUE-300 [facility] Family History Family Member Name Family Member Gender Family Member Status Date o f Status Description Data Source(s) Unknown Condition [facility] Unknown Condition [facility] Unknown Condition [facility] Unknown Condition [facility] Encounters Encounter Providers Location Date Indications Data Source(s ) Outpatient Attender: Tamara Quaner: Tamara ARANDA 02/28/2021 01:35:00 PM EDT - 02/28/2021 02:55:00 PM EDT [facility] Unknown [address] [facility] [address] 02/16/2021 12:00:00 AM EDT eCW1 ([facility]) Outpatient [address] [place] [address] 02/13/2021 12:00:00 AM EDT eCW1 ([facility]) Outpatient Attender: ASIA POWER MD Main Office 09/09/2020 09:00:00 AM EDT [facility] ([facility] Outpatient Attender: Darrell Ortez DO 021 10:57:00 AM EDT - 09/08/2020 11:59:[address] [facility] Outpatient Attender: Darrell Ortez DO 08/29/2020 08:08:00 AM EDT E78.00,Z00.00 [facility] E78.00,Z00.00 [place] [address] [facility] [address] 08/22/2020 12:00:00 AM EDT eCW1 ([facility]) [place] [address] [place] [address] 08/18/2020 12:00:00 AM EDT eCW1 ([facility]) [place] [address] [place] [address] 06/30/2020 12:00:00 AM EST eCW1 ([facility]) [place] [address] [facility] [address] 05/16/2020 12:00:00 AM EST eCW1 ([facility]) [place] [address] [facility] [place] [address] 04/28/2020 12:00:00 AM EST [facility] [place] [address] [facility] [address] 03/30/2020 12:00:00 AM EST [facility]) [place] [address] [facility] [address] 03/25/2020 12:00:00 AM EST [facility]) [place] [address] [facility] [address] 03/23/2020 12:00:00 AM EST [facility]CW1 [facility]) [place] [address] [facility] [place] [address] 03/23/2020 12:00:00 AM EST [facility]CW1 [facility]) [place] [address] [facility] [address] 02/26/2020 12:00:00 AM EDT [facility]CW1 [facility]) [place] [address] [facility] [facility] [address] 02/24/2020 12:00:00 AM EDT [facility]CW1 [facility]) Outpatient [address] [facility] [place] [address] 02/16/2020 12:00:00 AM EDT eCW1 ([facility]) Outpatient Attender: Darrell Hamiltonerrer: Darrell Ortez DO 02/11/2020 10:45:00 AM EDT [facility] 02/01/2020 09:47:00 PM EDT [facility] Emergency Attender: AG Barrysultant: Darrell Ortez DO 02/01/2020 09:26:00 PM EDT - 02/02/2020 02:30:00 AM EDT [facility] Patient discharged. Outpatient Attender: Emiliano ARANDA Main Office 01/28/2020 0 9:00:00 AM EDT [facility] [address] [place] [address] 01/19/2020 12:00:00 AM EDT [facility] Immunizations Vaccine Date Status Description Data Source(s) COVID-19 Moderna 07/05/2020 12:00:00 AM EST completed [facility] COVID-19 Moderna 06/07/2020 12:00:00 AM EST completed [facility] COVID-19 VACCINE Moderna 06/07/2020 12:00:00 AM EST completed [facility] Vaccine Series Complete: NOThis Data was Submitted to [facility] Via [employer] IIV3. This is one of two codes replacing CVX 15, which is being retired. 02/09/2020 12:00:00 AM EDT completed [facility] Medications Medication Brand Name Start Date Product Form Dose Route Admi nistrative Instructions Pharmacy Instructions Status Indications Reaction Description Data Source(s) Allergy Injection 2 Or More 03/14/2021 12:00:00 AM EDT completed [facility] ([facility] Medication administered onsite Allergy Injection 2 Or More 02/21/2021 12:00:00 AM EDT completed [facility] ([facility] Medication administered onsite Allergy Injection 2 Or More 01/31/2021 12:00:00 AM EDT completed [facility] ([facility] Medication administered onsite 100 mg 01/25/2021 12:00:00 AM EDT tablet 30 TAKE 1 TABLET BY MOUTH ONCE DAILY FOR 30 DAYS TAKE 1 TABLET BY MOUTH ONCE DAILY FOR 30 DAYS SOLD: [facility] Allergy Injection 2 Or More 01/09/2021 12:00:00 AM EDT completed [facility] Medication administered onsite Allergy Injection 2 Or More 12/19/2020 12:00:00 AM EDT completed [facility] ([facility] Medication administered onsite Allergy Injection 2 Or More 12/05/2020 12:00:00 AM EDT completed [facility] ([facility] Medication administered onsite 160-4.5 mcg/actuation 12/01/2020 12:00:00 AM EDT [facility] aerosol inhaler 10 INHALE TWO PUFFS BY MOUTH TWICE A DAY INHALE TWO PUFFS BY MOUTH TWICE A DAY SOLD: 12/03/2020 [facility] 160-4.5 mcg/actuation 12/01/2020 12:00:00 AM EDT HFA aerosol inhaler 10 INHALE TWO PUFFS BY MOUTH TWICE A DAY INHALE TWO PUFFS BY MOUTH TWICE A DAY SOLD: 02/20/2021 [facility] 160-4.5 mcg/actuation 12/01/2020 12:00:00 AM EDT HFA aerosol inhaler 10 INHALE TWO PUFFS BY MOUTH TWICE A DAY INHALE TWO PUFFS BY MOUTH TWICE A DAY SOLD: 01/13/2021 [facility] Allergy Injection 2 Or More 11/28/2020 12:00:00 AM EDT completed [facility] ([facility] Medication administered onsite Allergy Injection 2 Or More 11/21/2020 12:00:00 AM EDT completed [facility] Medication administered onsite Allergy Injection 2 Or More 10/05/2020 12:00:00 AM EDT completed [facility] ([facility] Medication administered onsite 25 mg 09/08/2020 12:00:00 AM EDT tablet 90 TAKE ONE TABLET BY MOUTH EVERY DAY TAKE ONE TABLET BY MOUTH EVERY DAY SOLD: 02/26/2021 [facility] Allergy Injection 2 Or More 09/07/2020 12:00:00 AM EDT completed [facility] ([facility] Medication administered onsite Allergy Injection 2 Or More 08/16/2020 12:00:00 AM EDT completed [facility] Medication administered onsite Allergy Injection 2 Or More 07/27/2020 12:00:00 AM EDT completed [facility] Medication administered onsite Allergy Injection 2 Or More 07/08/2020 12:00:00 AM EST completed [facility] ([facility] Medication administered onsite potassium citrate 10 MEQ Extended Releas e Oral Tablet Potassium Citrate ER 10 MEQ (1080 MG) Potassium Citrate ER 10 MEQ (1080 MG) 06/30/2020 12:00:00 AM EST 1.0 {tablet_with_meals} active Potassium Citrate ER 10 MEQ (1080 MG) [facility] ([facility]) potassium citrate 10 MEQ Extended Releas e Oral Tablet Potassium Citrate ER 10 MEQ (1080 MG) Potassium Citrate ER 10 MEQ (1080 MG) 06/30/2020 12:00:00 AM EST 1.0 {tablet_with_meals} active Potassium Citrate ER 10 MEQ (1080 MG) eCW1 ([facility]) 10 mEq (1,080 mg) 06/30/2020 12:00:00 AM EST tablet extended release 180 TAKE ONE TABLET BY MOUTH TWICE A DAY TAKE ONE TABLET BY MOUTH TWICE A DAY SOLD: 07/04/2020 [facility] potassium citrate 10 MEQ Extended Releas e Oral Tablet Potassium Citrate ER 10 MEQ (1080 MG) Potassium Citrate ER 10 MEQ (1080 MG) 06/30/2020 12:00:00 AM EST 1.0 {tablet_with_meals} active Potassium Citrate ER 10 MEQ (1080 MG) eCW1 ([facility]) potassium citrate 10 MEQ Extended Releas e Oral Tablet Potassium Citrate ER 10 MEQ (1080 MG) Potassium Citrate ER 10 MEQ (1080 MG) 06/30/2020 12:00:00 AM EST 1.0 {tablet_with_meals} active Potassium Citrate ER 10 MEQ (1080 MG) eCW1 ([facility]) potassium citrate 10 MEQ Extended Releas e Oral Tablet Potassium Citrate ER 10 MEQ (1080 MG) Potassium Citrate ER 10 MEQ (1080 MG) 06/30/2020 12:00:00 AM EST 1.0 {tablet_with_meals} active Potassium Citrate ER 10 MEQ (1080 MG) eCW1 ([facility]) Allergy Injection 2 Or More 06/10/2020 12:00:00 AM EST completed [facility] ([facility] Medication administered onsite Allergy Injection 2 Or More 05/17/2020 12:00:00 AM EST completed [facility] ([facility] Medication administered onsite Allergy Injection 2 Or More 04/27/2020 12:00:00 AM EST completed [facility] ([facility] Medication administered onsite 500 mg 04/06/2020 12:00:00 AM EST tablet 20 TAKE ONE TABLET BY MOUTH EVERY 12 HOURS FOR 10 DAYS TAKE ONE TABLET BY MOUTH EVERY 12 HOURS FOR 10 DAYS SO LD: 04/06/2020 [facility] Allergy Injection 2 Or More 04/05/2020 12:00:00 AM EST completed [facility] ([facility]) Medication administered onsite Ciprofloxacin 500 MG Oral Tablet Ciprofloxacin HCl 500 MG Ciprofloxacin HCl 500 MG 03/25/2020 12:00:00 AM EST 1.0 {tablet} activ e Ciprofloxacin HCl 500 MG eCW1 ([facility]) Ciprofloxacin 500 MG Oral Tablet Ciprofloxacin HCl 500 MG Ciprofloxacin HCl 500 MG 03/25/2020 12:00:00 AM EST 1.0 {tablet} activ e Ciprofloxacin HCl 500 MG eCW1 ([facility]) Ciprofloxacin 500 MG Oral Tablet Ciprofloxacin HCl 500 MG Ciprofloxacin HCl 500 MG 03/25/2020 12:00:00 AM EST 1.0 {tablet} activ e Ciprofloxacin HCl 500 MG eCW1 ([facility]) 500 mg 03/25/2020 12:00:00 AM EST tablet 20 TAKE ONE TABLET BY MOUTH EVERY 12 HOURS FOR 10 DAYS TAKE ONE TABLET BY MOUTH EVERY 12 HOURS FOR 10 DAYS SO LD: 03/25/2020 [facility] Ciprofloxacin 500 MG Oral Tablet Ciprofloxacin HCl 500 MG Ciprofloxacin HCl 500 MG 03/25/2020 12:00:00 AM EST 1.0 {tablet} activ e Ciprofloxacin HCl 500 MG eCW1 ([facility]) Ciprofloxacin 500 MG Oral Tablet Ciprofloxacin HCl 500 MG Ciprofloxacin HCl 500 MG 03/25/2020 12:00:00 AM EST 1.0 {tablet} activ e Ciprofloxacin HCl 500 MG eCW1 ([facility]) Ciprofloxacin 500 MG Oral Tablet Ciprofloxacin HCl 500 MG Ciprofloxacin HCl 500 MG 03/25/2020 12:00:00 AM EST 1.0 {tablet} activ e Ciprofloxacin HCl 500 MG eCW1 ([facility]) Ciprofloxacin 500 MG Oral Tablet Ciprofloxacin HCl 500 MG Ciprofloxacin HCl 500 MG 03/25/2020 12:00:00 AM EST 1.0 {tablet} activ e Ciprofloxacin HCl 500 MG eCW1 ([facility]) Ciprofloxacin 500 MG Oral Tablet Ciprofloxacin HCl 500 MG Ciprofloxacin HCl 500 MG 03/25/2020 12:00:00 AM EST 1.0 {tablet} activ e Ciprofloxacin HCl 500 MG eCW1 ([facility]) Ciprofloxacin 500 MG Oral Tablet Ciprofloxacin HCl 500 MG Ciprofloxacin HCl 500 MG 03/25/2020 12:00:00 AM EST 1.0 {tablet} activ e Ciprofloxacin HCl 500 MG eCW1 ([facility]) Phenazopyridine hydrochloride 200 MG Oral Tablet [Pyri dium] Pyridium 200 MG Pyridium 200 MG 03/23/2020 12:00:00 AM EST 1.0 {tablet_after_meals} active Pyridium 200 MG eCW1 ([facility]) Phenazopyridine hydrochloride 200 MG Oral Tablet [Pyri dium] Pyridium 200 MG Pyridium 200 MG 03/23/2020 12:00:00 AM EST 1.0 {tablet_after_meals} active Pyridium 200 MG eCW1 ([facility]) Phenazopyridine hydrochloride 200 MG Oral Tablet [Pyri dium] Pyridium 200 MG Pyridium 200 MG 03/23/2020 12:00:00 AM EST 1.0 {tablet_after_meals} active Pyridium 200 MG eCW1 ([facility]) Phenazopyridine hydrochloride 200 MG Oral Tablet [Pyri dium] Pyridium 200 MG Pyridium 200 MG 03/23/2020 12:00:00 AM EST 1.0 {tablet_after_meals} active Pyridium 200 MG eCW1 ([facility]) Phenazopyridine hydrochloride 200 MG Oral Tablet [Pyri dium] Pyridium 200 MG Pyridium 200 MG 03/23/2020 12:00:00 AM EST 1.0 {tablet_after_meals} active Pyridium 200 MG eCW1 ([facility]) Phenazopyridine hydrochloride 200 MG Oral Tablet [Pyri dium] Pyridium 200 MG Pyridium 200 MG 03/23/2020 12:00:00 AM EST 1.0 {tablet_after_meals} active Pyridium 200 MG eCW1 ([facility]) 100 mg 03/23/2020 12:00:00 AM EST tablet 30 TAKE ONE TABLET BY MOUTH EVERY DAY TAKE ONE TABLET BY MOUTH EVERY DAY SOLD: 07/07/2020 [facility] Phenazopyridine hydrochloride 200 MG Oral Tablet [Pyri dium] Pyridium 200 MG Pyridium 200 MG 03/23/2020 12:00:00 AM EST 1.0 {tablet_after_meals} active Pyridium 200 MG eCW1 ([facility]) 100 mg 03/23/2020 12:00:00 AM EST tablet 30 TAKE ONE TABLET BY MOUTH EVERY DAY TAKE ONE TABLET BY MOUTH EVERY DAY SOLD: 05/17/2020 [facility] Phenazopyridine hydrochloride 200 MG Oral Tablet [Pyri dium] Pyridium 200 MG Pyridium 200 MG 03/23/2020 12:00:00 AM EST 1.0 {tablet_after_meals} active Pyridium 200 MG eCW1 ([facility]) Phenazopyridine hydrochloride 200 MG Oral Tablet [Pyri dium] Pyridium 200 MG Pyridium 200 MG 03/23/2020 12:00:00 AM EST 1.0 {tablet_after_meals} active Pyridium 200 MG eCW1 ([facility]) 100 mg 03/23/2020 12:00:00 AM EST tablet 30 TAKE ONE TABLET BY MOUTH EVERY DAY TAKE ONE TABLET BY MOUTH EVERY DAY SOLD: 03/24/2020 [facility] 100 mg 03/23/2020 12:00:00 AM EST tablet 30 TAKE ONE TABLET BY MOUTH EVERY DAY TAKE ONE TABLET BY MOUTH EVERY DAY SOLD: 08/27/2020 [facility] 100 mg 03/23/2020 12:00:00 AM EST tablet 30 TAKE ONE TABLET BY MOUTH EVERY DAY TAKE ONE TABLET BY MOUTH EVERY DAY SOLD: 12/12/2020 [facility] 200 mg 03/23/2020 12:00:00 AM EST tablet 9 TAKE ONE TABLET BY MOUTH THREE TIMES A DAY TAKE ONE TABLET BY MOUTH THREE TIMES A DAY SOLD: 03/24/2020 [facility] 100 mg 03/23/2020 12:00:00 AM EST tablet 30 TAKE ONE TABLET BY MOUTH EVERY DAY TAKE ONE TABLET BY MOUTH EVERY DAY SOLD: 10/15/2020 [facility] Phenazopyridine hydrochloride 200 MG Oral Tablet [Pyri dium] Pyridium 200 MG Pyridium 200 MG 03/23/2020 12:00:00 AM EST 1.0 {tablet_after_meals} active Pyridium 200 MG eCW1 ([facility]) Phenazopyridine hydrochloride 200 MG Oral Tablet [Pyri dium] Pyridium 200 MG Pyridium 200 MG 03/23/2020 12:00:00 AM EST 1.0 {tablet_after_meals} active Pyridium 200 MG eCW1 ([facility]) Allergy Injection 2 Or More 03/17/2020 12:00:00 AM EST completed [facility] Medication administered onsite Sulfamethoxazole 800 MG / Trimethoprim 1 60 MG Oral Tablet [Bactrim] Bactrim DS 800-160 MG Bactrim DS 800-160 MG 02/26/2020 12:00:00 AM EDT 1.0 {table t} active Bactrim DS 800-160 MG eCW1 ( [facility]) Sulfamethoxazole 800 MG / Trimethoprim 1 60 MG Oral Tablet [Bactrim] Bactrim DS 800-160 MG Bactrim DS 800-160 MG 02/26/2020 12:00:00 AM EDT 1.0 {table t} active Bactrim DS 800-160 MG eCW1 ( [facility]) Sulfamethoxazole 800 MG / Trimethoprim 1 60 MG Oral Tablet [Bactrim] Bactrim DS 800-160 MG Bactrim DS 800-160 MG 02/26/2020 12:00:00 AM EDT 1.0 {table t} active Bactrim DS 800-160 MG eCW1 ( [facility]) Sulfamethoxazole 800 MG / Trimethoprim 1 60 MG Oral Tablet [Bactrim] Bactrim DS 800-160 MG Bactrim DS 800-160 MG 02/26/2020 12:00:00 AM EDT 1.0 {table t} active Bactrim DS 800-160 MG eCW1 ( [facility]) Sulfamethoxazole 800 MG / Trimethoprim 1 60 MG Oral Tablet [Bactrim] Bactrim DS 800-160 MG Bactrim DS 800-160 MG 02/26/2020 12:00:00 AM EDT 1.0 {table t} active Bactrim DS 800-160 MG eCW1 ( [facility]) Sulfamethoxazole 800 MG / Trimethoprim 1 60 MG Oral Tablet [Bactrim] Bactrim DS 800-160 MG Bactrim DS 800-160 MG 02/26/2020 12:00:00 AM EDT 1.0 {table t} active Bactrim DS 800-160 MG eCW1 ( [facility]) Sulfamethoxazole 800 MG / Trimethoprim 1 60 MG Oral Tablet [Bactrim] Bactrim DS 800-160 MG Bactrim DS 800-160 MG 02/26/2020 12:00:00 AM EDT 1.0 {table t} active Bactrim DS 800-160 MG eCW1 ( [facility]) Sulfamethoxazole 800 MG / Trimethoprim 1 60 MG Oral Tablet [Bactrim] Bactrim DS 800-160 MG Bactrim DS 800-160 MG 02/26/2020 12:00:00 AM EDT 1.0 {table t} active Bactrim DS 800-160 MG eCW1 ( [facility]) Sulfamethoxazole 800 MG / Trimethoprim 1 60 MG Oral Tablet [Bactrim] Bactrim DS 800-160 MG Bactrim DS 800-160 MG 02/26/2020 12:00:00 AM EDT 1.0 {table t} active Bactrim DS 800-160 MG eCW1 ( [facility]) Sulfamethoxazole 800 MG / Trimethoprim 1 60 MG Oral Tablet [Bactrim] Bactrim DS 800-160 MG Bactrim DS 800-160 MG 02/26/2020 12:00:00 AM EDT 1.0 {table t} active Bactrim DS 800-160 MG eCW1 ( [facility]) Sulfamethoxazole 800 MG / Trimethoprim 1 60 MG Oral Tablet [Bactrim] Bactrim DS 800-160 MG Bactrim DS 800-160 MG 02/26/2020 12:00:00 AM EDT 1.0 {table t} active Bactrim DS 800-160 MG eCW1 ( [facility]) Sulfamethoxazole 800 MG / Trimethoprim 1 60 MG Oral Tablet [Bactrim] Bactrim DS 800-160 MG Bactrim DS 800-160 MG 02/26/2020 12:00:00 AM EDT 1.0 {table t} active Bactrim DS 800-160 MG eCW1 ( [facility]) Sulfamethoxazole 800 MG / Trimethoprim 1 60 MG Oral Tablet [Bactrim] Bactrim DS 800-160 MG Bactrim DS 800-160 MG 02/26/2020 12:00:00 AM EDT 1.0 {table t} active Bactrim DS 800-160 MG eCW1 ( [facility]) Sulfamethoxazole 800 MG / Trimethoprim 160 MG Oral Tab let 800-160 mg SULFAMETHOXAZOLE/TRIMETHOPRIM 02/26/2020 12:00:00 AM EDT tablet 20 TAKE ONE TABLET BY MOUTH TWICE A DAY FOR 10 DAYS TAKE ONE TABLET BY MOUTH TWICE A DAY FOR 10 DAYS SOLD: 02/26/2020 [facility] Allergy Injection 2 Or More 02/25/2020 12:00:00 AM EDT completed [facility] ([facility]) Medication administered onsite Allergy Injection 2 Or More 02/05/2020 12:00:00 AM EDT completed [facility] ([facility]) Medication administered onsite 300 mg 02/03/2020 12:00:00 AM EDT capsule 20 TAKE ONE CAPSULE BY MOUTH TWICE A DAY TAKE ONE CAPSULE BY MOUTH TWICE A DAY SOLD: 02/03/2020 [facility] 0.4 mg 02/03/2020 12:00:00 AM EDT capsule 30 TAKE ONE CAPSULE BY MOUTH EVERY DAY TAKE ONE CAPSULE BY MOUTH EVERY DAY SOLD: 02/03/2020 [facility] 25 mg 12/22/2019 12:00:00 AM EDT tablet 90 TAKE ONE TABLET BY MOUTH EVERY DAY TAKE ONE TABLET BY MOUTH EVERY DAY SOLD: 05/17/2020 [facility] 160-4.5 mcg/actuation 11/17/2019 12:00:00 AM EDT HFA aerosol inhaler 10 INHALE TWO PUFFS BY MOUTH TWICE A DAY INHALE TWO PUFFS BY MOUTH TWICE A DAY SOLD: 06/06/2020 [facility] 160-4.5 mcg/actuation 11/17/2019 12:00:00 AM EDT HFA aerosol inhaler 10 INHALE TWO PUFFS BY MOUTH TWICE A DAY INHALE TWO PUFFS BY MOUTH TWICE A DAY SOLD: 08/30/2020 [facility] 160-4.5 mcg/actuation 11/17/2019 12:00:00 AM EDT HFA aerosol inhaler 10 INHALE TWO PUFFS BY MOUTH TWICE A DAY INHALE TWO PUFFS BY MOUTH TWICE A DAY SOLD: 03/22/2020 [facility] potassium citrate 10 MEQ Extended Release Oral Tablet Potassium Citrate Potassium Citrate 12/15/2018 11:42:05 AM EDT 10 MEQ comp leted [facility] Fexofenadine hydrochloride 180 MG Oral Tablet Fexofenadine 12/15/2018 11:41:40 AM EDT 180 MG completed [facility] Esomeprazole 40 MG Delayed Release Oral Capsule Esomeprazole Magnesium (Nexium) 40 mg capsule,delayed release(DR/EC) Esomeprazole Magnesium (Nexium) 40 mg capsule,delayed release(DR/EC) 06/23/2012 12:37:00 PM EST [address] [facility] Magnesium Oxide 400 MG Oral Tablet Magnesium Oxide 06/05/2011 03:50 :00 PM EST 400 MG completed [facility] Insurance Providers Payer name Policy type / Coverage type Policy ID Covered libertarian ID Covered libertarian's relationship to juárez Policy Juárez Plan Information MEDICARE [id number] MEDICARE [id number] A [employer] OPT[employer] [id number] SP [id number] [facility] [id number] SP [id number] [facility] [id number] SP [id number] [facility] [id number] SP [id number] [facility] [id number] SP [id number] ANSI-Medicare Part B [id number] ANSI-Commercial [id number] BCBS ..[id number] Blue Cross/Bl ue Shield .[id number] [facility] OPTIONS .[id number] Commercial Insurance Co. .[id number] Medicare .[id number] Medicare Part B .[id number] ANSI-Commercial [id number] ANSI-Medicare Part B [id number] ANSI-Commercial [id number] ANSI-Medicare Part B [id number] ANSI-Commercial [id number] ANSI-Medicare Part B [id number] ANSI-Medicare Part B [id number] ANSI-Commercial [id number] ANSI-Commercial [id number] ANSI-Medicare Part B [id number] MEDICARE [id number] A ANSI-Medicare Part B [id number] ANSI-Commercial [id number] ANSI-Commercial [id number] ANSI-Medicare Part B [id number] MEDICARE C [id number] S [id number] A [place] P[place] 302/307 [id number] SP [id number] [place] 306/806 [id number] SP [id number] [place] BC-BS PPO 306 [id number] SP [id number] [place] 306/806 [id number] SP [id number] [facility] P [id number] S [id number] MEDICARE [id number] SP [id number] [facility] P [id number] S [id number] [facility] OPT[facility] [id number] SP [id number] MEDICARE PART A -O/P [id number] 18 [id number] [facility] OPT[facility] [id number] 18 [id number] MEDICARE PART A [facility] [id number] 18 [id number] MEDICARE C [id number] S [id number] AARP O [id number] S [id number] Problems, Conditions, and Diagnoses Code Display Name Description Problem Type Effective Dates Data Source(s) Z8546 Personal history of malignant neoplasm o f prostate Personal history of malignant neoplasm of prostate Diagnosis 02/01/2020 09:26:00 PM EDT [facility] R6520 Severe sepsis without septic shock Severe sepsis without septic shock Diagnosis 02/01/2020 09:26:00 PM EDT [facility] N132 Hydronephrosis with renal and ureteral c alculous obstruction Hydronephrosis with renal and ureteral calculous obstruction Diagnosis 020 09:26:00 PM EDT [facility] Z61507 Unspecified asthma, uncomplicated Unspecified as thma, uncomplicated Diagnosis 02/01/2020 09:26:00 PM EDT [facility] N10 Acute pyelonephritis Acute pyelonephritis Diagnosis 02/01/2020 09:26:00 PM EDT [facility] N179 Acute kidney failure, unspecified Acute kidney f ailure, unspecified Diagnosis 02/01/2020 09:26:00 PM EDT [facility] A419 Sepsis, unspecified organism Sepsis, unspecified organ ism Diagnosis 02/01/2020 09:26:00 PM EDT [facility] R109 Unspecified abdominal pain Unspecified abdominal pain Diagnosis 02/01/2020 09:26:00 PM EDT [facility] N20.0 [id number] Calculus of kidney Problem 02/21/2021 12:00: 00 AM EDT eCW1 ([facility]) Z01.818 Pre-procedure evaluation check Preop testing Problem 02/16/2021 12:00:00 AM EDT eCW1 ([facility]) N39.0 Urinary tract infectious disease UTI (urinary tract in fection) Problem 02/13/2021 12:00:00 AM EDT eCW1 ([facility]) N20.0 Kidney stone Kidney stone Problem 02/16/2020 12:00:00 A M EDT eCW1 ([facility]) Surgeries/Procedures Procedure Description Date Indications Data Source(s) PROF ESCALERA ALLGerardo IMMNTX X W/PRV ALLGIC XTRCS NJXS 2020 12:00:00 AM EDT [facility] ([facility]) PROF ESCALERA ALLGerardo IMMNTX X W/PRV ALLGIC XTRCS NJXS 2020 12:00:00 AM EDT [facility] ([facility]) PREPJ& ALLERGEN IMMUNOTHERAPY 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 02/07/2021 12:00:00 AM EDT [facility] ([facility]) PROF ESCALERA ALLG IMMNTX X W/PRV ALLGIC XTRCS NJXS 2020 12:00:00 AM EDT [facility] ([facility] PROF ESCALERA ALLG IMMNTX X W/PRV ALLGIC XTRCS NJXS 2020 12:00:00 AM EDT [facility] ([facility]) PROF ESCALERA ALLG IMMNTX X W/PRV ALLGIC XTRCS NJXS 2020 12:00:00 AM EDT [facility] ([facility] PROF ESCALERA ALLG IMMNTX X W/PRV ALLGIC XTRCS NJXS 2020 12:00:00 AM EDT [facility] ([facility] PROF ESCALERA ALLG IMMNTX X W/PRV ALLGIC XTRCS NJXS 2020 12:00:00 AM EDT [facility] ([facility] PROF ESCALERA ALLG IMMNTX X W/PRV ALLGIC XTRCS NJXS 2020 12:00:00 AM EDT [facility] ([facility]) PROF JW GIBBOSNG IMMNTX X W/PRV ALLGIC XTRCS NJXS 2020 12:00:00 AM EDT [facility] ([facility]) BRNCDILAT RSPSE SPMTRY PRE&POST-BRNCDILAT ADMN 021 12:00:00 AM EDT [facility] ([facility]) OFFICE OUTPATIENT VISIT 15 MINUTES 09/09/2020 12:00:00 AM EDT [facility] ([facility]) PROF ESCALERA ALLG IMMNTX X W/PRV ALLGIC XTRCS NJXS 2020 12:00:00 AM EDT [facility] ([facility]) PROF ESCALERA ALLG IMMNTX X W/PRV ALLGIC XTRCS NJXS 2020 12:00:00 AM EDT [facility] ([facility]) PROF ESCALERA ALLG IMMNTX X W/PRV ALLGIC XTRCS NJXS 2020 12:00:00 AM EDT [facility] ([facility]) PREPJ& ALLERGEN IMMUNOTHERAPY 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 07/09/2020 12:00:00 AM EST [facility] ([facility] PROF [facility] ALLG IMMNTX X W/PRV ALLGIC XTRCS NJXS 2020 12:00:00 AM EST [facility] ([facility] PROF [facility] ALLG IMMNTX X W/PRV ALLGIC XTRCS NJXS 2020 12:00:00 AM EST [facility] ([facility] PROF [facility] ALLG IMMNTX X W/PRV ALLGIC XTRCS NJXS 2020 12:00:00 AM EST [facility] ([facility] PROF [facility] ALLG IMMNTX X W/PRV ALLGIC XTRCS NJXS 2019 12:00:00 AM EST [facility] ([facility] PROF [facility] ALLG IMMNTX X W/PRV ALLGIC XTRCS NJXS 2019 12:00:00 AM EST [facility] ([facility] PROF [facility] ALLG IMMNTX X W/PRV ALLGIC XTRCS NJXS 2019 12:00:00 AM EST [facility] ([facility] PROF [facility] ALLG IMMNTX X W/PRV ALLGIC XTRCS NJXS 2019 12:00:00 AM EDT [facility] ([facility]) PROF [facility] ALLG IMMNTX X W/PRV ALLGIC XTRCS NJXS 2019 12:00:00 AM EDT [facility] ([facility]) Cytopathology procedure, preparation of smear, genital sourc e (procedure) 02/01/2020 [facility], including anaerobic screen (proc edure) 02/01/2020 12:00:[address] [facility] l Blood culture for bacteria, including anaerobic screen (proc edure) 02/01/2020 12:00:[address] [facility] l BRNCDILAT RSPSE SPMTRY PRE&POST-BRNCDILAT ADMN 020 12:00:00 AM EDT [facility] ([facility]) Results ID Date Data Source [id number] 02/28/2021 01:40:00 PM EDT [facility] Patient Name: ARYAN MANN : 1950 Sex: M Pt Unit #: [id number] Location:[facility] Provider: Visit Date/Time: 02/28/21 Primary Insurance: MEDICARE [employer] Secondary Insurance: AAR ADDENDUM Have reviewed history and physical, medications, allergies, August blood work, immunizations, 02/13/2021 labs including blood sugar 119, prior blood sugar 122 in August, BMI 33, blood pressure 120/80. His urine culture is negative-his UA is negative-he does seem to have hyperglycemia so I have as outpatient ordered hemoglobin A1c with his next set of fasting labs to better clarify if he is prediabetic. He has hypertension which appears optimized with his current diuretic. He has moderate asthma but appears well controlled with Symbicort and reports to Tamara he cannot rememberthe last time he had to use his rescue inhaler. Nonetheless since anesthesia can trigger bronchospasm I would suggest giving him either metered-dose inhaler albuterol 2 puffs prior to sedation or standard unit dose nebulizer of albuterol to bee off bronchospasm. Additional risk factors besides his asthma and hypertension are his age over 60 and his obesity. He has been optimized as best we can get him. Procedure is needed to prevent obstructive uropathy. ASA category is 3. <Electronically signed by Elizabeth Horton DO> 02/28/21 1725 ADDENDUM Urine culture done showing no growth. <Electronically signed by Tamara Pruitt RPA C> 02/28/21 1704 Intake Vital Signs 02/28/21 13:40 Current Height 5 ft 9.5 in Current Weight 227 lb Weight Measurement Method Standing Scale BMI 33.0 BP 120/80 Blood Pressure Location Lt brachial Position Sitting Respiration 18 Pulse 76 Pulse Strength Normal Pulse Source Pulse O ximeter Temp 98.2 F Temp Source Oral Pulse Oximetry (%) 98 Oxygen Delivery Method room air Intake Visit Reasons: Pre-op visit (general surgery) Nurse Note: Pt is here for his Pre op for his kidney stones. 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: No Accompanied by: Self / Same as Patient Is patient in pain?: No Allergies red dye [RED DYE] Allergy (Intermediate, Unverified 02/28/21 14:03) throat swelling No Known Food Allergies Allergy (Verified 02/28/21 14:03) atorvastatin Adverse Reaction (Severe, Verified 02/28/21 14:03) Achy all over cetirizine [From ZYRTEC] Adverse Reaction (Unknown, Verified 02/28/21 14:03) NOT EFFECTIVE FOR ALLERGIES fluticasone [From FLONASE] Adverse Reaction (Unknown, Verified 02/28/21 14:03) SEVERE DIZZINESS Medications - Last Reconciled 02/28/21 by TETO Vallecillo albuterol sulfate 90 mcg/actuation (Ventolin HFA) 2 puffs inhalation Q6HPRN MDD 8 allopurinol 100 mg PO DAILY aspirin (Aspir-) 81 mg PO budesonide-formoterol 160-4.5 mcg/actuation (Symbicort) INHALE TWO PUFFS BY MOUTH TWICE A DAY chlorthalidone 25 mg PO DAILY hydrocortisone 2.5% (Proctozone-HC) 30 grams RC BID-QID inhalational spacing device (BreatheRite Valved MDI Chamber) every 6 hours prn magnesium oxide 400 mg PO DAILY multivitamin (Daily Multi-Vitamin) 1 tab PO DAILY potassium citrate ER 10 mEq PO QDAY HIV Testing Offer - ages 13-64 Requirement for HIV testing offer been met?: Not in age range Do you need a note to return Do you need a note to return to daycare/school/sports/work: No Coronavirus Screening Screening Are you currently positive or on isolation for COVID ?: No Do you have any NEW signs of one or more of the following?: no symptoms Do you have NEW signs of at least two of the following?: no symptoms HPI Pre-Operative H P 71yo m lili with PMH allergies, asthma, HTN, hyperlipidemia, diverticulosis, GERD, hx prostate CA s/p prostatectomy and radiation and kidney stones here for surgical clearance for RT ESWL procedure 03/02/[address] Galicia. Bill states he is feeling well. Has not been sick recently. COVID test done negative. 02/25/2021. Allergies - Currently receives allergy injections [id number]. Asthma - currently on symbicort 160-4.5mcg 2inhs bid. Does not remember the last time he used alb inh. No coughing/SOB/wheezing. Sees Dr. Power yearly. PFT NL 08/2020. CXR done - no acute cardiopulmonary process - viewed [facility]. [facility] sinus rhythm with rate 60. No acute changes noted. No significant changes fromECG done 2017. Bill denies chest pain/palpitations/SOB/dizziness/syncope. Walks 3miles at least 4x/wk. Stop ASA 02/24/2021 HTN - currently on chlorthalidone 25mg daily. Takes ptassium citrate ER 10meq daily. Not currently on any medication for GERD. Labs done 02/23/2021 CBC WBC 3.7, hgb/hct 15.4/45.9, PLT 217; Glu 119 - not fasting, bun/cr 22/1.04, Na 140, K 4.9, chloride 105, c02 30, anion gap 5, calcium 9.7 Surgery Information Proposed Surgical Procedure: RT ESWL PROCEDURE Date of surgery: 03/02/21 Surgeon: DR GALICIA Anesthesia: general Covid Screening Pre-Op Covid testing ordered?: Yes Exercise tolerance Can climb one flight of stairs (12-13 steps) in less than 30 seconds without stopping and without symptoms: Yes Distance able to walk (blocks): WALKS 3MILES 5X/WK Risk factors Pulmonary risk factors: COPD (ASTHMA) and age > 60 Last PFT: 09/09/20 () Pertinent Past History Medical History: Hypertension Previous surgical complications: No Previous anesthesia intolerance: No Steroid use in last 6 months: No Allergies to meds or foods: Yes Pertinent Family History Family hx adverse reaction to anesthesia: No Family history coagulopathy: No PFSH Medical History (Updated 02/28/21 @ 16:53 by TETO Vallecillo) Allergic rhinitis due to pollen Essential (primary) hypertension Gastroesophageal reflux disease Hypercholesterolemia Kidney stone Moderate persistent asthma Obesity Prostate cancer Weight gain Surgical History (Updated 02/28/21 @ 14:10 by TETO Vallecillo) History of circumcision History of extraction of renal calculus History of prostatectomy Family History Mother Diabetes Congestive heart failure Father No problems noted. Brother Gout Brother No problems noted. Social History (Updated 02/28/21 @ 14:13 by TETO Vallecillo) Does the Patient have a Healthcare Proxy: No Does Patient have a DNR?: No Does Patient have a Living Will?: No caffeine: Yes Type: coffee Number of servings: 2 what type of physical activity do you participate in?: walking frequency: 3-4 times per week duration: 45-60 minutes/day Smoking Status: Never smoker alcohol intake: current alcohol intake frequency: a few times a month Alcohol type: beer substance use type: does not use Review of Systems Const Denies body aches, Denies chills, Denies excessive sweating, Denies fatigue, Denies fever(s), Deniesheadache(s), Denies night sweats, Denies poor appetite and Denies weakness Eyes Denies blurry vision, Denies change in vision, Denies diplopia, Denies eye discharge, Denies irritation, Denies loss of vision and Denies eye pain ENT Denies bleeding gums, Denies dysphagia, Denies vertigo, Denies dizziness, Denies o talgia, Denies headache(s), Denies hoarseness, Denies epistaxis, Denies mouth lesions, Denies nasal congestion, Denies nasal discharge, Denies neck pain, Denies odynophagia, Denies disequilibrium, Denies post nasal drip, Denies sinus pressure and Denies sore throat Card Denies chest pain, Denies diaphoresis, Denies syncope, Denies rapid heart rate, Denies lightheadedness, Denies palpitations, Denies dyspnea, Denies dyspnea on exertion, Denies orthopnea and Denies paroxysmal nocturnal dyspnea Resp Denies chest congestion, Denies cough, Denies hemoptysis, Denies dyspnea, Denies dyspnea on exertionand Denies wheezing GI Denies abdominal pain, Denies melena, Denies bloating, Denies change in bowel habits, Denies dysphagia, Denies heartburn, Denies fecal incontinence, Denies diarrhea, Denies loose stools, Deniesnausea, Denies odynophagia, Denies vomiting and Denies hematemesis Denies hematuria, Denies dysuria, Denies nocturia and Denies urinary urgency Musc Denies myalgias, Denies arthralgias, Denies joint swelling, Denies neck pain, Denies numbness, Denies stiffness and Denies tingling Skin/Breast Denies rash and Denies unusual bruising Neuro Denies abnormal speech, Denies behavioral changes, Denies confusion, Denies vertigo, Denies dizziness, Denies syncope, Denies headache(s), Denies lack of coordination, Denies loss of vision, Denies memory loss, Denies numbness, Denies convulsions, Denies seizure-like activity, Denies tingling, Denies paresthesias, Denies tremor(s), Denies disequilibrium and Denies weakness Psych Denies anxiety, Denies behavioral changes, Denies confusion, Denies depression and Denies memory loss Endo Denies excessive sweating, Denies fatigue and Denies palpitations Aller/Immun Denies wheezing Exam Const General: cooperative, healthy appearing, comfortable, no acute distress, well developed and well groomed Nutritional Appearance: obese HENMT Head: normocephalic and atraumatic Ears: TM's normal bilaterally and EAC's normal General nose exam: no nasal discharge Face and sinus: normal facial exam Mouth: moist mucous membranes abnormal (DRY) Throat: posterior oropharynx normal Eyes Conjunctivae: conjunctivae normal Pupils: PERRL EOM: EOM intact bilaterally Neck Neck: no lymphadenopathy Resp Effort Inspection: normal respiratory effort Auscultation: clear to auscultation bilaterally, no crackles, no rhonchi and no wheezes Cardio Rhythm: regular rhythm Heart Sounds: S1 normal and S2 normal Pulses: posterior tibial pulses present bilaterally 3+ GI Palpation: soft, not firm, no guarding, not rigid and nontender Auscultation: normal bowel sounds Skin Rashes: no rashes Neuro Cranial Nerves: CN's II-XII intact bilaterally Extrem General: no edema Psych Appearance: grossly normal Mental Status: mental status grossly normal Speech and Movement: speech and movement normal Mood: congruent mood Affect: normal affect Attitude: cooperative Thought Process: normal Thought Content: normal Insight: insight good Judgment: judgment good Assessment Plan Assessment Plan (1) Encounter for preoperative examination for general surgical procedure: Code(s): Z01.818 - Encounter for other preproc edural examination Plan: 71yo male with PMH allergies, asthma, HTN, hyperlipidemia, hx prostate CA, GERD and kidney stones here for surgical clearance for RT ESWL procedure with Dr. Galicia 03/02/2021. Rober is feeling well, has not been sick recently. COVID test negative. ECG NL sinus rhythm with rate 60. No acute changes. No significant changes compared to ECG 2018. No chest pain/palpitations/sob/dizziness/syncope. Rober stopped ASA 02/24/2021. Advised not to take any NSAIDs until after surgery. Advised morning of surgery to take chlorthalidone 25mg. Advised to use symbicort 160-4.5mcg 2 inh. Advised to hold all other medications until after surgery. (2) Kidney stone on right side: Code(s): N20.0 - Calculus of kidney Plan: RT ESWL procedure with Dr. Galicia 03/02/2021. (3) Essential (primary) hypertension: Status: Chronic Code(s): I10 - Essential (primary) hypertension SNOMED Code(s): 97963403 Category: Medical Plan: HTN stable on chlorthalidone 25mg daily. (4) Moderate persistent asthma without complication: Status: Chronic Code(s): J45.40 - Moderate persistent asthma, uncomplicated SNOMED Code(s): 123287658 Category: Medical Plan: Asthma stable on symbicort 160-4.5mcg 2 inh bid. Last PFT 08/2020 NL. CXR 02/23/2021 - no acute cardiopulmonary process - viewed on [employer] connections. Does not recall the last time he used alb inh. No coughing/wheezing/sob. Plan: ASA category II. Medical conditions optimized at present. Low risk for complications. TM to review note/labs/ECG. Advised to call if any concerns or s/s develop. Coding Level of Care Code 92170 Est Pt Intermediate Comp Exam Detailed Diagnoses Encounter for preoperative examination for general surgical procedure Z01.818 Essential (primary) hypertension I10 Moderate persistent asthma without complication J45.40 Kidney stone on right side N20.0 Additional Codes Intake - Is patient in pain?: No ([id number]) <Electronically signed by Tamara Chairez> 02/28/21 1702 Name Value Range Interpretation Code Description Data Melia rce(s) Supporting Document(s) ID Date Data Source [id number] 02/25/2021 10:10:00 AM EDT [facility] Name Value Range Interpretation Code Description Data Melia rce(s) Supporting Document(s) SARS-CoV-2 (COVID-19) RNA [Presence] in Respiratory specimen by LEYLA with probe detection Not Detected [facility] This lab was ordered by [facility] [place] and reported by [employer] ID Date Data Source [facility] URINALYSIS 02/13/2021 12:00:00 AM EDT eCW1 (Formerly [facility]) Name Value Range Interpretation Code Description Data Melia rce(s) Supporting Document(s) Laboratory studies (set) UA URINALYS IS eCW1 ([facility]) ID Date Data Source [id number] 09/08/2020 11:03:00 AM EDT [facility] Patient Name: ARYAN MANN : 1950 Sex: M Pt Unit #: [id number] Location:[facility] Provider: Visit Date/Time: 09/08/20 Primary Insurance: MEDICARE [employer] Secondary Insurance: [facility] Intake Vital Signs 09/08/20 11:06 Current Height 5 ft 9.5 in Current Weight 223 lb Weight Measurement Method Standing Scale BMI 32.4 BP 132/74 Blood Pressure Location Lt brachial Position Sitting Respiration 18 Pulse 71 Pulse Source Pulse Oximeter Pulse Oximetry (%) 98 Oxygen Delivery Method room air Intake-Medicare Annual Visit Reasons: Medicare Annual Wellness subsequent Nurse Note: 70 year old male in for medicare annual wellness, voices concern about his hydrochlorathiazide being increased by his urologist but switched urologists and they wont fill for him 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: No Accompanied by: Self / Same as Patient Is patient in pain?: No Allergies red dye [RED DYE] Allergy (Unknown, Unverified 05/12/14 11:38) atorvastatin Adverse Reaction (Severe, Unverified 08/10/16 08:11) Achy all over cetirizine [From ZYRTEC] Adverse Reaction (Unknown, Unverified 05/12/14 11:38) NOT EFFECTIVE FOR ALLERGIES fluticasone [From FLONASE] Adverse Reaction (Unknown, Unverified 05/12/14 11:38) SEVERE DIZZINESS Medications - Last Reconciled 09/08/20 by Darrell Ortez DO albuterol sulfate 90 mcg/actuation (Ventolin HFA) 2 puffs inhalation Q6HPRN MDD 8 allopurinol 100 mg PO DAILY aspirin (Aspir-) 81 mg PO budesonide-formoterol 160-4.5 mcg/actuation (Symbicort) 2 inhalations inhalation BID chlorthalidone 25 mg PO DAILY hydrocortisone 2.5% (Proctozone-HC) 30 grams RC BID-QID magnesium oxide 400 mg PO DAILY multivitamin (Daily Multi-Vitamin) 1 tab PO DAILY nystatin 15 grams TP BID Fall Risk History of falls: No Ambulatory Aid:: None Gait/Transferring:: Normal Medications:: No High Risk Medications HIV testing Offer: No Requirement for HIV testing offer been met?: Not in age range Hep C Testing Offered: Yes Hep C Requirement met: Refuses today SBIRT Annual Questionnaire Are you currently in recovery for alcohol or substance use?: No How many times in the past year have you had 5 or more drinks in a day?: None How many times in the past year have you used a recreational drug or used a prescription medication for nonmedical reasons?: None Coronavirus Screening Screening Are you currently positive or on isolation for COVID ?: No Do you have any NEW signs of one or more of the following?: no symptoms Do you have NEW signs of at least two of the following?: no symptoms [facility] Medical History (Updated 09/08/20 @ 12:00 by Darrell Ortez DO) Allergic rhinitis due to pollen Allergies/Hay Fever Diverticulosis Gastroesophageal reflux disease Hypercholesterolemia Kidney stone Moderate persistent asthma Obesity Prostate cancer Weight gain Surgical History (Updated 11/04/18 @ 11:53 by CPUsage MA) History of - surgery History of - surgery robotic prostatectomy November 2017 Family History Mother Diabetes Congestive heart failure Father No problems noted. Brother Gout Brother No problems noted. Social History Does the Patient have a Healthcare Proxy: No Does Patient have a DNR?: No Does Patient have a Living Will?: No Smoking Status: Never smoker Medicare Annual Wellness Type Of Examation Type of Exam: Subsequent Wellness Exam EKG EKG Performed: No Medication list Medications albuterol sulfate 90 mcg/actuation (Ventolin HFA) 2 puffs inhalation Q6HPRN MDD 8 allopurinol 100 mg PO DAILY aspirin (Aspir-) 81 mg PO budesonide-formoterol 160-4.5 mcg/actuation (Symbicort) 2 inhalations inhalation BID chlorthalidone 25 mg PO DAILY hydrocortisone 2.5% (Proctozone-HC) 30 grams RC BID-QID magnesium oxide 400 mg PO DAILY multivitamin (Daily Multi-Vitamin) 1 tab PO DAILY nystatin 15 grams TP BID Allergies Allergies red dye [RED DYE] Allergy (Unknown, Unverified 05/12/14 11:38) atorvastatin Adverse Reaction (Severe, Unverified 08/10/16 08:11) Achy all over cetirizine [From ZYRTEC] Adverse Reaction (Unknown, Unverified 05/12/14 11:38) NOT EFFECTIVE FOR ALLERGIES f luticasone [From FLONASE] Adverse Reaction (Unknown, Unverified 05/12/14 11:38) SEVERE DIZZINESS Current Diet Current diet: regular PHQ-2/9 Over the last 2 weeks, how often have you been bothered by any of the following problems? 1. Little interest or pleasure in doing things: not at all 2. Feeling down, depressed, or hopeless: not at all Total score: 0 If score is 2 greater, continue 3. Trouble falling or staying asleep, or sleeping too much: not at all 4. Feeling tired or having little energy: not at all 5. Poor appetite or overeating: not at all 6. Feeling bad about yourself - or that you are a failure or have let yourself and your family down:not at all 7. Trouble concentrating on things, such as reading the newspaper or watching television: not at all 8. Moving or speaking so slowly that other people could have noticed? - Or the opposite - being so fidgety or restless that you have been moving around a lot more than usual: not at all 9. Thoughts that you would be better off or of hurting yourself in some way: not at all Total score: 0 If you checked off any problems, how difficult have these problems made it for you to do your work, take care of things at home, or get along with other people?: not difficult at all Source: Developed by Drs. Honorio Phillip, Michaela Hancock, Eric Fallon and colleagues, with an educational mitchell from [employer]. Vision [place] [facility] - right eye: 20/20 [facility] - left eye: 20/15 [facility] - bilateral eyes: 20/20 Functional Assessment Bathing: Independent Dressing: Independent Toileting: Independent Transferring: Independent Continence: Independent Feeding: Independent Total Score: 6 Home Safety Home Safety: Reports Bathroom: Grab bars, Lighting: Adequate, Cascade: No throw rugs and Stairs: Handrail available Hearing Hearing Left Ear: Normal Hearing Right Ear: Normal Hearing test method: whispered voice IADL Assessment Functional abilities: Up Go test, pt steady, Up Go test, within 30 sec, Pt independent w/phone,Pt independent w/transportation, Pt independent w/shopping, Pt independent w/housework, Pt independent w/meal preparation, Pt independent w/laundry, Pt independent w/medication and Pt independent w/finances Cognitive Evaluation Oriented to the date:: Yes Oriented to time:: Yes Oriented to place:: Yes Mood: grossly normal Affect: Normal Judgement: normal Needs caregiver for assistance: No Clock drawing: Yes Clock drawing with correct time: Yes 3 item recall: 3 HPI Additional HPI HPI Details: 70 YO male with PMH listed is here for annual physical as well as f/u on other medical co- morbidities. Last seen 02/12/20 hospital discharge for nephrolithiasis, pyelonephritis. Last labs 08/29/20. he is on Chlorthalidone and he was on a low carb diet. I recommended 2 buillion cubes in AM for salt as low salt floods the kidneys with calcium, leading to more stones. Last seen 207lbs and today 223lbs. he is followed by Urology for nephrolithiasis and prostate CA. Tdap 04/23/14, PCV13 02/25/19, PCV23 08/25/12, Covid Moderna 08/25/12, colonoscopy 05/13/2006. He is on Chlorthalidone 25mg daily. he has passed many kidney stones in the past month. He is on alow Oxalate diet. Review of Systems Const Denies fatigue, Denies fever(s), Denies headache(s) and Denies night sweats Eyes Denies loss of vision ENT Denies headache(s) Card Denies chest pain with activity and Denies dyspnea on exertion Resp Denies cough and Denies dyspnea on exertion GI Denies change in bowel habits Denies nocturia Musc Reports arthralgias (left knee hurts) Skin/Breast Denies new lesions Neuro Denies headache(s), Denies loss of vision and Denies paresthesias Psych Denies abnormal sleep pattern, Denies anxiety, Denies change in appetite, Denies depression and Denies irritability Endo Denies fatigue Aller/Immun Reports seasonal rhinorrhea Exam Const General: cooperative, healthy appearing, comfortable, no acute distress, well developed, well groomed and not in acute distress HENMT Head: normal to inspection Ears: TM's normal bilaterally Face and sinus: normal facial exam Mouth: oral mucosae normal, oropharynx normal and moist mucous membranes Throat: posterior oropharynx normal Eyes Pupils: PERRL EOM: EOM intact bilaterally Neck Thyroid: thyroid normal and no palpable nodules Carotids: no bruits Lymphatic: no lymphadenopathy noted Chest Chest: normal inspection of the chest Resp Effort Inspection: normal respiratory effort Auscultation: clear to auscultation bilaterally, no rales, no rhonchi and no wheezes Cardio Heart Sounds: S1 normal, S2 normal, no gallops, no murmurs and no rubs GI Palpation: soft, hepatosplenomegaly present, no hernias and nontender Auscultation: normal bowel sounds and no bruits Rectal exam - Male: Yes deferred General: deferred Musc Cervical Spine: normal cervical lordosis Thoracic/Lumbar Spine: thoracic and lumbar spine normal to inspection Skin Lesions: no lesions Rashes: no rashes Hair: normal Nails: normal Neuro General: patient alert, patient awake and patient oriented x3 Cranial Nerves: PERRL and EOM intact bilaterally Cognition: normal cognition Speech: speech normal Gait: normal gait Motor: muscle tone normal throughout and strength 5/5 throughout Extrem General: normal to inspection, no clubbing, no cyanosis, no edema and no pedal edema Psych Appearance: grossly normal and well kempt Mental Status: mental status grossly normal Speech and Movement: speech and movement normal Mood: congruent mood Affect: normal affect Attitude: cooperative Thought Process: normal Thought Content: normal Quality Reporting Depression/Bipolar (159/160/161/169/177) Total score: 0 Assessment Plan Assessment Plan (1) Medicare annual wellness visit, subsequent: Code(s): Z00.00 - Encounter for general adult medical examination without abnormal findings Plan - Darrell Ortez, DO: Medicare AW. Obesity and weight gain. He is willing to get back on keto. Increase salt to keep stones low. Avoid Oxalate foods; spinach, nuts. Re-occuring nephrolithiasis. Followed by Urology. I will give some Vicodin and Flomax to have at home when he is getting stones. Stay well hydrated. (2) Weight gain: Status: Acute Code(s): R63.5 - Abnormal weight gain SNOMED Code(s): 8267559 Category: Medical (3) Allergic rhinitis: Status: Chronic Code(s): J30.9 - Allergic rhinitis, unspecified SNOMED Code(s): 85166351 Category: Medical (4) Uric acid nephrolithiasis: Status: Chronic Code(s): N20.0 - Calculus of kidney SNOMED Code(s): 907875787 Category: Medical Orders Other Medications: Discontinued: esomeprazole magnesium (Nexium) Discontinued Reason: MD Order 40 mg PO DAILY 30 caps 5RF Coding Level of Care Code Medicare AWV initial Exam Comprehensive Diagnoses Medicare annual wellness visit, subsequent Z00.00 Weight gain R63.5 Allergic rhinitis J30.9 Uric acid nephrolithiasis N20.0 <Electronically signed by Darrell Ortez DO> 09/08/20 1202 Name Value Range Interpretation Code Description Data Melia rce(s) Supporting Document(s) ID Date Data Source [id number] 08/29/2020 08:59:00 AM EDT [facility] Name Value Range Interpretation Code Description Data Melia rce(s) Supporting Document(s) Leukocytes [#/volume] in Blood by Automated count 4.1 10*3/uL 4.45-10.71 Below low normal [facility] Erythrocytes [#/volume] in Blood by Automated count 5.19 10*6/uL 4.3- 6.1 N [facility] Hemoglobin [Moles/volume] in Blood 16.6 g/dL 13-18 N [facility] Hematocrit [Volume Fraction] of Blood by Automated count 48.8 % 4 2-52 N [facility] Erythrocyte mean corpuscular volume [Ent itic volume] in Cord blood by Automated count 94 fL 80-96 N [facility] ital Erythrocyte mean corpuscular hemoglobin [Entitic mass] by Au tomated count 32 pg 27-31 Above high normal [facility] Erythrocyte mean corpuscular hemoglobin concentration [Mass/volume] in Cord blood 34 g/dL 33-37 N [facility] ital Erythrocyte distribution width [Entitic volume] by Automated count 12 % 11-15 N [facility] Platelets [#/volume] in Blood by Automated count 253 10*3/uL 130-472 N [facility] Platelet mean volume [Entitic volume] in Blood 10.1 fL 9.1-13.1 N [facility] Neutrophils/100 leukocytes in Blood by Automated count 57.8 % 41- 77 N [facility] Neutrophils [#/volume] in Blood by Automated count 2.3 U 1.7-7.6 N [facility] Lymphocytes/100 leukocytes in Blood by Automated count 21.2 % 14- 46 N [facility] Lymphocytes [#/volume] in Blood by Automated count 0.9 U 0.6-4.6 N [facility] Monocytes/100 leukocytes in Blood by Automated count 9.4 % 4-12 N [facility] Monocytes [#/volume] in Blood by Automated count 0.4 U 0.2-1.2 N [facility] Eosinophils/100 leukocytes in Blood by Automated count 9.9 % 0-7 Above high normal [facility] Eosinophils [#/volume] in Blood by Automated count 0.4 U 0.0-0.5 N [facility] Basophils/100 leukocytes in Blood by Automated count 1.5 % 0.4-1.3 Above high normal [facility] Basophils [#/volume] in Blood by Automated count 0.1 U 0.0-0.2 N [facility] NUCLEATED RED BLOOD CELL 0 % [facility] NUCLEATED RED BLOOD CELL# 0 U [facility] Immature granulocytes [Presence] in Blood by Automated count 0-2 N [facility] Immature granulocytes [#/volume] in Blood by Automated count 0.0 U 0-0.1 N [facility] Manual Differential panel - Blood NO [facility] ID Date Data Source [id number] 08/29/2020 09:33:00 AM EDT [facility] Name Value Range Interpretation Code Description Data Melia rce(s) Supporting Document(s) Urea nitrogen [Mass/volume] in Serum or Plasma 20 mg/dL 9-23 N [facility] Sodium [Moles/volume] in Serum or Plasma 139 mmol/L 132-146 N [facility] Potassium [Moles/volume] in Serum or Plasma 4.1 mmol/L 3.5-5.5 N [facility] Chloride [Moles/volume] in Serum or Plasma 104 mmol/L 99-109 N [facility] Carbon dioxide, total [Moles/volume] in Serum or Plasma 30 mmol/L 20 -31 N [facility] Anion gap in Serum or Plasma 9 mmol/L 8-16 [facility] Glucose [Mass/volume] in Serum or Plasma 122 mg/dL 74-106 Above high normal [facility] Creatinine 1.0 mg/dL 0.5-1.1 [facility] Glomerular filtration rate/1.73 sq M.pre dicted [Volume Rate/Area] in Serum or Plasma Greater Than 60 ABOVE 60 [facility] Alanine aminotransferase [Enzymatic acti vity/volume] in Serum or Plasma by With P-5'-P 40 U/L 10-49 N [facility] ital Aspartate aminotransferase [Enzymatic ac tivity/volume] in Serum or Plasma by With P-5'-P 18 U/L 0-33 [facility] pital Alkaline phosphatase [Enzymatic activity/volume] in Serum or Plasma 98 U/L 45-129 [facility] Calcium [Mass/volume] in Serum or Plasma 9.6 mg/dL 8.5-10.1 [facility] Bilirubin.total [Mass/volume] in Serum or Plasma 0.9 mg/dL 0.3-1.2 [facility] Albumin [Mass/volume] in Serum or Plasma by Bromocresol purple (BCP) dye binding method 4.2 g/dL 3.2-4.8 [facility] ital Protein [Mass/volume] in Serum or Plasma 7.4 g/dL 5.7-8.2 [facility] ID Date Data Source [id number] 08/29/2020 09:33:00 AM EDT [facility] Name Value Range Interpretation Code Description Data Melia rce(s) Supporting Document(s) Triglycerides 183 mg/dL 0-150 Above high normal [facility] Cholesterol 192 mg/dL 120-200 [facility] HDL Cholesterol 49 mg/dL [facility] HDL Less than 40 mg/dL: Major risk for CHDHDL Greater than 59 mg/dL: Low risk for CHD LDL Cholesterol, Calc 107 mg/dL 0-100 Above high normal [facility] ID Date Data Source URINE CULTURE 02/26/2020 09:00:47 AM EDT eCW1 ([facility]ly [facility]) Name Value Range Interpretation Code Description Data Melia rce(s) Supporting Document(s) Laboratory studies (set) URINE CULTU RE eCW1 ([facility]) ID Date Data Source [id number] 02/11/2020 10:55:00 AM EDT [facility] Patient Name: Aryan Mann : 1950 Sex: M Pt Unit #: [id number] Location:[facility] Provider: Visit Date/Time: 02/11/20 Primary Insurance: MEDICARE [employer] Secondary Insurance: [employer] Intake Vital Signs 02/11/20 10:56 Current Height 5 ft 9 in Current Weight 207 lb 7 oz Weight Measurement Method Standing Scale BMI 30.6 BP 112/62 Position Sitting Respiration 8 L Pulse 74 Temp 98.7 F Temp Source Oral Pulse Oximetry (%) 95 Oxygen Delivery Method room air Intake Visit Reasons: Hospital Discharge Follow- up Nurse Note: Hospital follow up for Kidney stone 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: No Accompanied by: Self / Same as Patient Is patient in pain?: No Allergies red dye [RED DYE] Allergy (Unknown, Unverified 05/12/14 11:38) atorvastatin Adverse Reaction (Severe, Unverified 08/10/16 08:11) Achy all over cetirizine [From ZYRTEC] Adverse Reaction (Unknown, Unverified 05/12/14 11:38) NOT EFFECTIVE FOR ALLERGIES fluticasone [From FLONASE] Adverse Reaction (Unknown, Unverified 05/12/14 11:38) SEVERE DIZZINESS Fall Risk History of falls: No Ambulatory Aid:: None Gait/Transferring:: Normal Medications:: Antihypertensives PHQ-2/9 Over the last 2 weeks, how often have you been bothered by any of the following problems? 1. Little interest or pleasure in doing things: not at all 2. Feeling down, depressed, or hopeless: not at all Total score: 0 3. Trouble falling or staying asleep, or sleeping too much: several days 4. Feeling tired or having little energy: not at all 5. Poor appetite or overeating: not at all 6. Feeling bad about yourself - or that you are a failure or have let yourself and your family down:not at all 7. Trouble concentrating on things, such as reading the newspaper or watching television: not at all 8. Moving or speaking so slowly that other people could have noticed? - Or the opposite - being so fidgety or restless that you have been moving around a lot more than usual: not at all 9. Thoughts that you would be better off or of hurting yourself in some way: not at all Total score: 1 If you checked off any problems, how difficult have these problems made it for you to do your work, take care of things at home, or get along with other people?: not difficult at all Source: Developed by Drs. Honorio Phillip, Michaela Hancock, Eric Fallon and colleagues, with an educational mitchell from [employer]. HIV Testing Offer - ages 13-64 Requirement for HIV testing offer been met?: Not in age range Hep C Testing Offered: No Hep C Requirement met: Refuses today SBIRT Annual Questionnaire Are you currently in recovery for alcohol or substance use?: No How many times in the past year have you used a recreational drug or used a prescription medication for nonmedical reasons?: None Do you need a note to return Do you need a note to return to [facility]/school/sports/work: No Coronavirus Screening Screening Have you traveled outside of [facility] or [facility] in the last 14 days.: No Has patient experienced coronavirus symptoms: No PFSH Medical History (Updated 12/11/18 @ 12:43 by Myesha Solano) Allergic rhinitis due to pollen Allergies/Hay Fever Diverticulosis Gastroesophageal reflux disease Hypercholesterolemia Kidney stone Moderate persistent asthma Obesity Prostate cancer Surgical History (Updated 11/04/18 @ 11:53 by CPUsage MA) History of - surgery History of - surgery robotic prostatectomy November 2017 Family History Mother Diabetes Congestive heart failure Father No problems noted. Brother Gout Brother No problems noted. Social History Does the Patient have a Healthcare Proxy: No Does Patient have a DNR?: No Does Patient have a Living Will?: No Smoking Status: Never smoker HPI Additional HPI HPI Details: 69 YO male with PMH listed is here for hospital f/u. He was admitted 02/02/20 for nephrolithiasis with mild hydronephrosis, 3mm stone R distal ureter, and pyelonephritis. I do not have the discharge summary, only the History and Physical. He was initially treated with Zosyn, Morphine and Toradol, IVF. he was in-patient for 3 days. His Urologist is Dr. Galicia. He stateshe has passes blood after doing more strenous things. He states in the past he has had Uric Acid stones. He is on Cefdinir 500mg BID and he has 2 days left. He is also on Flomax. Review of Systems Const Denies weight gain and Denies weight loss Card Denies chest pain, Denies irregular heart rhythm and Denies dyspnea on exertion Resp Denies cough and Denies dyspnea on exertion Reports hematuria Exam Const General: cooperative, healthy appearing and comfortable Neck Thyroid: abnormal thyroid Carotids: no bruits Lymphatic: lymphadenopathy noted Chest Chest: normal inspection of the chest Resp Auscultation: clear to auscultation bilaterally, no rales, no rhonchi and no wheezes Cardio Rhythm: regular rhythm Heart Sounds: S1 normal, S2 normal, no gallops, no murmurs and no rubs Other: no CVAT Bl Extrem General: normal to inspection and no edema Quality Reporting Depression/Bipolar (159/160/161/169/177) Total score: 1 Assessmen t Plan Assessment Plan (1) Hospital discharge follow-up: Code(s): Z09 - Encounter for follow-up examination after completed treatment for conditions other than malignant neoplasm Plan - Darrell Ortez, DO: Hospital Discharge Nephrolithiasis, Pyelonephritis. He is much improved. PMH prostate CA. +Hematuria up to two days ago. Finish Abx and has f/u Urology 02/16/20. He is on Chlorthalidone 25mg daily and a low carbohydrate diet. I heavily advocated for 2 bullion cubes per day and also more salts on foods as low salt diets remove calcium from bones and can cause more calcium stones. Chlorthalidone also wastes sodium. (2) Nephrolithiasis: Code(s): N20.0 - Calculus of kidney (3) Pyelonephritis: Code(s): N12 - Tubulo- interstitial nephritis, not specified as acute or chronic Electronically Signed By: <Electronically signed by Darrell Ortez DO> Date/Time Signed: 02/11/20 1134 Name Value Range Interpretation Code Description Data Melia rce(s) Supporting Document(s) ID Date Data Source [id number] 02/01/2020 09:26:00 PM EDT [facility] 1 OrderSheet [facility] Emergency Department [address] [place] [address] Phone #: ext- [phone] 02/01/2020 21:11 Patient: ARYAN MANN Sex: M : 1950 Age: 69yWEIGHT:97.3 kg (M) HEIGHT:71 inches (S) BMI:29.9ALLERGIES: contrast dyeCHIEF COMPLAINT: flank painDIAGNOSIS: Ureteric stone, Urinary tract infectious disease, Renal colic, Systemic infectionLAB ORDERSOrder Description Priority Entered Acknowledged InitialedCBC w Diff STAT 21:33 02/01/2020 21:35 Ag Martinez RN, M.D.;CMP STAT 21:33 02/01/2020 21:35 Ag Martinez RN, M.D.;Lipase STAT 21:33 02/01/2020 21:35 Ag Martinez RN, M.D.;Urinalysis (Clean STAT 21:33 02/01/2020 22:20 Malcolm,Catch) Ag Ann R.N., M.D.;Lactic Acid STAT 21:33 02/01/2020 21:35 Ag Martinez RN, M.D.;Blood Culture STAT 21:33 02/01/2020 21:35 Ipajif02g X2 (Ag Salcedo RN21:33 02/01/2020) Natalie;Blood Culture STAT 21:33 02/01/2020 21:44 Malcolm,q10m X2 (Ag Salcedo R.N.21:43 02/01/2020) Natalie;Culture, Urine STAT 23:12 02/01/2020 00:20 02/02/2020(Urine, Clean Ag Ann Robert R.N.Catch) Natalie;DIAGNOSTIC STUDY ORDERSOrder Description Priority Entered Acknowledged InitialedCT ABD PEL W/O STAT 21:35 02/01/2020 21:47 Fowler,Oral W/O IV Turrin, Ag Ahn R.N.Contrast Natalie;(Oxygen?(No)) 2 OrderSheet [facility] Emergency Department [address] [place] [address] Phone #: ext- [phone] 01/12 21:11 Patient: ARYAN MANN Sex: M : 1950 Age: 69y(IV?(Yes)) Reason for Study: right sided pain, Hx of UTI and Kidney stones, feverMEDICATION/IV/DRIP/FLUID ORDERSOrder Description Priority Entered Acknowledged InitialedNS IV 500 mL 21:34 02/01/2020 21:38 Malcolm,Bolus: : Bolus 500 Sarayrin, Ag Ahn R.N.mL, then 150 mL/hr M.DZander;(X1)Morphine IVP 4 mg 21:36 02/01/2020 21:45 Malcolm(HIGH ALERT Turrin, Ag Anabelle R.N.MEDICATION) Natalie;Zofran 4 mg IVP X 1 21:36 02/01/2020 21:44 Malcolm,dose: 4 mg (NOW Turrin, Ag Anabelle R.N.x1) Natalie;Toradol 15 mg IVP 21:36 02/01/2020 21:46 Malcolm,X1 dose: 15 mg Turrin, Ag Anabelle R.N.(NOW x1) Natalie;Zosyn- IVPB 4.5 gm 23:11 02/01/2020 00:26 02/02/2020(in 50 mL D5W, X1) Ag Ann Robert R.N. M.D.;NS IV 1000 mL 23:02/01/2020 00:27 02/02/2020Bolus: : Bolus 1000 Ag Ann Robert R.N.mL (X1) Natalie;Dilaudid IVP 1 mg 23:33 02/01/2020 00:27 02/02/2020(HIGH ALERT Ag Ann Robert R.N.MEDICATION) Natalie;GENERAL ORDERSOrder Description Priority Entered Acknowledged InitialedNPO 21:02/01/2020 21:35 Ag Martinez RN, M.D.;Saline Lock 21:02/01/2020 21:35 Ag Martinez RN, M.D.;Transfer: 23:02/01/2020 00:45 02/02/2020 Ag Ann Thea R.N. M.D.;Consult - Urology 23:02/01/2020 00:45 02/02/2020 Ag Ann Thea R.N. M.D.; 3 OrderSheet [facility] Emergency Department [address] [place] [address] Phone #: ext- [phone] 02/01/2020 21:11 Patient: ARYAN MANN Sex: M : 1950 Age: 69y[Electronically signed by Rosy Huang R.N. (03:03 02/02/2020)][Electronically signed by Ag Ann M.D. (04:42 02/02/2020)][Electronically locked by Rosy Huang R.N. (03:03 02/02/2020)] Name Value Range Interpretation Code Description Data Melia rce(s) Supporting Document(s) ID Date Data Source [id number] 02/01/2020 09:26:00 PM EDT [facility] 1 Medication Reconciliation Report [facility] Emergency Department [address] [place] [address] Phone #: ext- [phone] 02/01/2020 21:11 Patient: ARYAN MANN Sex: M : 1950 Age: 69yWeight: 97.3 kgHeight/Length: 71 in.BMI: 29.9ALLERGIES: contrast dyeThe patient's Home Medications are listed below:THE FOLLOWING MEDICATIONS NEED TO BE RECONCILED: Albuterol Sulfate Inhalation, PRN hydroCHLOROthiazide Oral Magnesium Oral Potassium Oral Pyridium Oral Symbicort Inhalation 2 puffs, 2x a dayThe source(s) of the original Home Medication information:Not obtained.The following Medications were given to the patient in the Emergency Department:NS [IV] IV Fluids bolus 500 mL over 1 hour(s), then 150 mL/hr, administered: 02/01/2020 9:38:00 PMZofran [IVP] IVP 4 mg, administered: 02/01/2020 9:44:00 PMMorphine [IVP] IVP 4 mg, administered: 02/01/2020 9:45:00 PMToradol [IVP] IVP 15 mg, administered: 02/01/2020 9:46:00 PMZosyn [IVPB] IVPB bolus 0, then 4.5 gm 200 mL/hr, administered: 02/02/2020 12:26:00 AMNS [IV] IV Fluids bolus 1000 mL wide open, administered: 02/02/2020 12:27:00 AM 2 Medication Reconciliation Report [facility] Emergency Department [address] [place] [address] Phone #: ext- [phone] 02/01/2020 21:11 Patient: ARYAN MANN Sex: M : 1950 Age: 69yDilaudid [IVP] IVP 1 mg, administered: 02/02/2020 12:27:00 AMThe following Medications were prescribed to the patient:None. Name Value Range Interpretation Code Description Data Melia rce(s) Supporting Document(s) ID Date Data Source [id number] 02/01/2020 09:26:00 PM EDT [facility] 1 Medication Administration Record [facility] Emergency Department [address] [place] [address] Phone #: ext- [phone] 02/01/2020 21:11 Patient: ARYAN MANN Sex: M : 1950 Age: 69yWeight: 97.3 kgHeight/Length: 71 inBMI: 29.9ALLERGIES: contrast dye Date/Time Medication Administered Medication OrderedStart NS [IV] NS IV 500 mL Bolus: : Bolus 69885:[id number] 02/01/2020 Dose: IV Fluids mL, then 150 mL/hr (X1)Anabelle Fowler R.N. Rate: 150 mL/hr---- Bolus: 500 mL over 1 hour(s)Stop Dispensed: 1000 mL bag22:38 02/01/2020 Site: #1 left Rosy Edgar R.N.Given MORPHINE [IVP] Morphine IVP 4 mg (HIGH ALERT21:45 02/01/2020 Dose: 4 mg IVP MEDICATION)Anabelle Fowler R.N. Site: #1 left forearmGiven ZOFRAN [IVP] (ONDANSETRON HCL) Zofran 4 mg IVP X 1 dose: 4 mg21:44 02/01/2020 Dose: 4 mg IVP (NOW x1)Anabelle Fowler R.N. Site: #1 left forearmGiven TORADOL [IVP] (KETOROLAC Toradol 15 mg IVP X1 dose: 15 mg21:46 02/01/2020 TROMETHAMINE) (NOW x1)Anabelle Fowler R.N. Dose: 15 mg IVP Site: #1 left forearmStart ZOSYN [IVPB] (PIPERACILLIN Zosyn- IVPB 4.5 gm (in 50 mL00:26 02/02/2020 SOD-TAZOBACTAM SO) D5W, X1)Honorio Robb R.N. Dose: 4.5 gm IVPB---- Rate: 200 mL/hr over 20 minute(s)Stop Dispensed: 50 mL bag01:00 02/02/2020 Site: #1 left forearmRosy Huang R.N.Start NS [IV] NS IV 1000 mL Bolus: : Bolus [id number] 02/02/2020 Dose: IV Fluids mL (X1)Honorio Robb R.N. Bolus: 1000 mL wide open---- Dispensed: 1000 mL bagStop Site: #1 left :30 02/02/2020Rosy Huang R.N.Given DILAUDID [IVP] (HYDROMORPHONE Dilaudid IVP 1 mg (HIGH ALERT00:27 02/02/2020 HCL) MEDICATION)Honorio Robb R.N. Dose: 1 mg IVP Site: #1 left forearm Name Value Range Interpretation Code Description Data Melia rce(s) Supporting Document(s) ID Date Data Source [id number] 02/01/2020 09:26:00 PM EDT [facility] 1 General Instructions [facility] Emergency Department [address] [place] [address] Phone #: ext- [phone] 02/01/2020 21:11 Patient: ARYAN MANN Sex: M : 1950 Age: 69ySevere sepsis with acute renal failure. No shock.Right renal colic in the right ureter with a single calculus with hydronephrosis, urinary tract infection andpyelonephritis.Ureterolithiasis (single stone) in the right ureter with renal colic, hydronephrosis and acute pyelonephritis.Acute urinary tract infection with pyelonephritis associated with obstruction.(Electronically signed by Ag Ann M.D. 02/02/2020 04:42) Name Value Range Interpretation Code Description Data Melia rce(s) Supporting Document(s) ID Date Data Source [id number] 02/01/2020 09:26:00 PM EDT [facility] 1 Clinical Report - Nurses [facility] Emergency Department [address] [place] [address] Phone #: ext- [phone] 02/01/2020 21:11 Patient: ARYAN MANN Sex: M : 1950 Age: 69yTRIAGEArrived by private vehicle. Historian: patient and family. Accompanied by family. ( C/o right sided flankpain x 1 week+, worse tonight starting 1800, chills. Also c/o pain with urination. Recent UTI with abx tx. Hxkidney stones).Acuity: LEVEL 3.Chief Complaint: PAIN WITH URINATION and URINARY RETENTION.Alert. No acute distress.The patient has had fever, discomfort with urination and urgency of urination.Treatment FORK OPERATOR:None.SEPSIS SCREEN: SIRS Screen negative. Sepsis Screen negative. No suspected or confirmed signs ofinfection present. --21:24 02/01/20 Rosy Huang R.N.21:16 02/01/20. BP: 159/77. MAP: 104. HR: 69. RR: 20. O2 saturation: 99%. Temp: 100.6 F. Pain levelnow: 10/10. --21:24 02/01/20 Rosy Huang R.N.Weight: 97.3 kg measured. Height/Length: 71 inches Per Patient. BMI: 29.9. --21:15 02/01/20 Rosy Huang R.N.MedicationsSymbicort Inhalation 2 puffs, 2x a day. --02:53 02/02/20 Rosy Huang R.N. Albuterol Sulfate Inhalation, PRN. --02:54 02/02/20 Rosy Huang R.N. hydroCHLOROthiazide Oral. --02:54 02/02/20 Rosy Huang R.N. Potassium Oral. --02:54 02/02/20 Rosy Huang R.N. Magnesium Oral. --02:54 02/02/20 Rosy Huang R.N. Pyridium Oral. --02:54 02/02/20 Rosy Huang R.N.The following entry was struck by Rosy Huang R.N., 02:53 (02/02/20) Reason - other(additional informationgiven by pt). Unknown. --21:18 02/01/20 Rosy Huang R.N. .Allergiescontrast dye. --21:18 02/01/20 Rosy Huang R.N.PROBLEMS:Asthma.Prostate Cancer. 2 Clinical Report - Nurses [facility] Emergency Department [address] [place] [address] Phone #: ext- [phone] 02/01/2020 21:11 Patient: ARYAN MANN Sex: M : 1950 Age: 69y Nephrolithiasis. --21:19 02/01/20 Rosy Huang R.N. ADDITIONAL SURGERIES: Prostatectomy. --21:19 02/01/20 Rosy Huang R.N. History PAST MEDICAL HX: UTI. Immunizations: up-to-date. SOCIAL HX: Never smoker. Occasional alcohol use. No drug use. The patient was offered HIV testing but declined and hepatitis C testing but declined. The patient has not traveled outside the [place] Infectious disease exposure: No infectious disease exposure. SELF HARM ASSESSMENT: Self harm assessment was performed. The patient answered "no" to the question(s) "Have you recently felt down, depressed, or hopeless?", "Do you have thoughts of harming or killing yourself?", "Do you have a plan for harming or killing yourself?", "Have you recently had thoughts about harming or killing others?", "Do you have any dangerous items in your possession?", "Have you noticed less interest or pleasure in doing things?", "Are you here because you tried to hurt yourself?" and "Have you ever tried to hurt yourself before today?". ABUSE ASSESSMENT: No report of abuse. NUTRITIONAL RISK ASSESSMENT: The nutritional risk assessment revealed no deficiencies. FUNCTIONAL ASSESSMENT: Functional assessment: no impairments noted. LEARNING NEEDS ASSESSMENT: The learning needs assessment revealed no barriers. FALL RISK ASSESSMENT: Fall risk assessment completed. No risk factors identified. SKIN INTEGRITY ASSESSMENT: Skin integrity risk assessment completed. No skin integrity risk identified. --21:24 02/01/20 Rosy Huang R.N. Interventions Identification band on patient. --21:24 02/01/20 Rosy Huang R.N.PHYSICAL ASSESSMENTGENERAL / NEURO / PSYCH: Alert. Oriented X 4. Appears in pain.HEENT: Mucous membranes are pink.RESPIRATORY: Respirations not labored. Breath sounds within normal limits.CVS: Normal heart rate and rhythm. Capillary refill less than 2 seconds.GI / : Abdomen soft and nontender. Abdominal tenderness (R flank pain). Bowel sounds withinnormal limits. Burning with urination. The patient has had hematuria.SKIN: Skin is warm and dry. Skin is slightly diaphoretic. --21:31 02/01/20 Jose Potter RN.NURSING PROGRESS NOTES 3 Clinical Report - Nurses [facility] Emergency Department [address] [place] [address] Phone #: ext- [phone] 02/01/2020 21:11 Patient: ARYAN MANN Sex: M : 1950 Age: 69y21:32 02/01/2020 Site #1 started via IV in the left forearm with an 18g angiocath, with aseptic techniqueand good blood return; one attempt. Blood drawn: rainbow set and green tube(s). Labeled in the presenceof the patient and sent to the lab. Saline lock flushed with 10 mL saline (Per Anabelle GAONA). --21:32 02/01/20Jose Potter RNNIBP monitor placed on patient. Patient gowned. Head of bed elevated. Reassurance given. Call lightplaced in reach. Side rails up x 2. Bed placed in lowest position. Brakes of bed on. Patient ready forevaluation- ED physician notified. --21:32 02/01/20 Jose Potter RN21:38 02/01/2020 Started bag #1 1000 mL IV Fluids NS; bolus of 500 mL over 1 hour(s) then at 150 mL/hrvia site #1 via IV pump. Allergies verified and confirmed 5 rights. IV patency established. IV site checked:no pain, redness, or swelling. IV flushed thoroughly pre- and post-medication administration. Informationreviewed with patient. Verbalizes understanding. --21:38 02/01/20 Anabelle Fowler, R.N.21:44 02/01/2020 Zofran (Ondansetron HCl) IVP 4 mg given over 3 minute(s) via site #1. Allergies verifiedand confirmed 5 rights. IV patency established. IV site checked: no pain, redness, or swelling. IV flushedthoroughly pre- and post-medic ation administration. IVP given by RN. Information reviewed with patient.--21:44 02/01/20 Anabelle Fowler, R.N.21:45 02/01/2020 Morphine IVP 4 mg given over 3 minute(s) via site #1. Allergies verified and confirmed 5rights. IV patency established. IV site checked: no pain, redness, or swelling. IV flushed thoroughly pre-and post-medication administration. IVP given by RN. Information reviewed with patient including reasonfor taking this medication and sedative warning. Verbalizes understanding. --21:45 02/01/20 Anabelle Fowler R.N.21:46 02/01/2020 Toradol (Ketorolac Tromethamine) IVP 15 mg given over 3 minute(s) via site #1.Allergies verified and confirmed 5 rights. IV patency established. IV site checked: no pain, redness, orswelling. IV flushed thoroughly pre- and post- medication administration. IVP given by RN. Informationreviewed with patient including reason for taking this medication. Verbalizes understanding. --21:4602/01/20 Anabelle Fowler R.N.Patient transported to [place] by wheelchair with tech. --22:01 02/01/20 Anabelle Fowler R.N.Patient returned from [place] by wheelchair with tech. --22:10 02/01/20 Anabelle Fowler R.N.23:30 02/01/20. BP: 141/77. MAP: 98. HR: 63. RR: 18. O2 saturation: 99%. Temp: 100.1 F. Pain levelnow: 5/10. --01:32 02/02/20 Rosy Huang R.N.22:38 02/01/2020 IV Fluids NS via IV site #1 Discontinued: bag #1 completed. Total amount infused: 500mL. IV patency established. IV site checked: no pain, redness, or swelling. IV flushed thoroughly. --02:5602/02/20 Rosy Huang R.N.00:26 02/02/2020 Started 4.5 gm of Zosyn (Piperacillin Sod-Tazobactam So) IVPB in bag #1 50 mL; at 200mL/hr over 20 minute(s) via site #1. via IV pump. Allergies verified and confirmed 5 rights. IV patency 4 Clinical Report - Nurses [facility] Emergency Department [address] [place] [address] Phone #: ext- [phone] 02/01/2020 21:11 --- Patient: ARYAN MANN Sex: M : 1950 Age: 69y established. IV site checked: no pain, redness, or swelling. IV flushed thoroughly pre- and post-medication administration. Information reviewed with patient including reason for taking this medication, signs of allergic reaction and precautions. Verbalizes understanding. --00:26 02/02/20 Honorio Robb R.N. 00:02/02/2020 Started bag #1 1000 mL IV Fluids NS; bolus of 1000 mL wide open via site #1 via IV pump. Allergies verified and confirmed 5 rights. IV patency established. IV site checked: no pain, redness, or swelling. IV flushed thoroughly pre- and post-medication administration. Information reviewed with patient including reason for taking this medication, signs of allergic reaction and precautions. Verbalizes understanding. --00:02/02/20 Honorio Robb R.N. 00:02/02/2020 Dilaudid (HYDROmorphone HCl) IVP 1 mg given over 2 minute(s) via site #1. Allergies verified and confirmed 5 rights. IV patency established. IV site checked: no pain, redness, or swelling. IV flushed thoroughly pre- and post-medication administration. IVP given by RN. Information reviewed with patient including reason for taking this medication, signs of allergic reaction, precautions and sedative warning. Verbalizes understanding. --00:02/02/20 Honorio Robb R.N. 01:00 02/02/2020 Zosyn IVPB via IV site #1 Discontinued: bag #1 completed. Total amount infused: 50 mL. IV patency established. IV site checked: no pain, redness, or swelling. IV flushed thoroughly. --02:59 02/02/20 Rosy Huang R.N. 01:02/02/20. The patient is resting quietly. ( Remains in NAD awaiting transfer to [facility] ED. Son at bedside.). --02:51 02/02/20 Rosy Huang R.N. 01:02/02/2020 IV Fluids NS via IV site #1 Discontinued: bag #1 completed. Total amount infused: 1000 mL. IV patency established. IV site checked: no pain, redness, or swelling. IV flushed thoroughly. --02:59 02/02/20 Rosy Huang R.N. 02:30 02/02/20. ( Transport team at bedside to transfer pt to [facility]. Belongings sent with son. VSS. Pain 0/10, NAD. No needs at this time.). --02:52 02/02/20 Rosy Huang R.N.DISPOSITION / DISCHARGE 01:43 02/02/20. Report was given to a nurse via a phone call. Report included information regarding patient's care, treatment, allergies and condition including: recent changes, current vital signs and abnormal labs. Report included treatment information regarding medications given or pending; type and amount of IV fluids and medications infusing and total volume infused. No questions were asked. Report was acknowledged. (Mary Kate GAONA). --03:00 02/02/20 Rosy Huang R.N. Departure time: 02:30 02/02/2020. Transferred to [facility]. Visit overview, summary of care (CCDA), Emtala forms and Face Sheet provided to transport team and EMS via paper. Patient's personal items include, pt clothing sent home with son. --03:02 02/02/20 Rosy Huang R.N. 02:30 02/02/20. BP: 119/66. MAP: 83. HR: 80. RR: 18. O2 saturation: 95%. Temp: 100.8 F. Pain level now: 0/10. --03:02 02/02/20 Rosy Huang R.N. 5 Clinical Report - Nurses [facility] Emergency Department [address] [place] [address] Phone #: ext- [phone] 02/01/2020 21:11 Patient: ARYAN MANN Sex: M : 1950 Age: 69yLocked/Released at 02/02/2020 03:03 by Rosy Huang R.N. Name Value Range Interpretation Code Description Data Melia rce(s) Supporting Document(s) ID Date Data Source [id number] 02/01/2020 09:26:00 PM EDT [facility] 1 Clinical Report - Physicians/Mid Levels [facility] Emergency Department [address] [place] [address] Phone #: ext- [phone] 02/01/2020 21:11 Patient: ARYAN MANN Sex: M : 1950 Age: 69y Time Seen: 21:18 02/01/2020; initial patient contact. Arrived- By private vehicle. Historian- patient and family. Disposition decision: 23:17 02/01/2020.HISTORY OF PRESENT ILLNESS Chief Complaint: FLANK PAIN. This started 1 weeks ago and is still present and worsening. It was gradual in onset and has been constant. It is described as "pain" and it is described as located in the right flank and the right abdomen. At its maximum, severity described as severe and 10 / 10. When seen in the E.D., severity described as severe and 10 / 10. Modifying factors. Not worsened by anything. Not relieved by anything. The patient has had nausea. No loss of appetite, vomiting or diarrhea. (pain worsened tonight w chills last 30 minutes). No recent travel. Similar symptoms previously. Patient has had similar symptoms occasionally. ( w kidney stones in the past; pt's urologist is in [place]). Recent medical care: Not recently seen/assessed.REVIEW OF SYSTEMSNo constipation, black stools, hematemesis, difficulty with urination or urinary f requency. No bloodystools, fever, headache, sore throat or blurred vision. No chest pain, difficulty breathing, cough, joint painor skin rash. The patient has had mild chills and moderate pain on urination. It is described as "painful"and has occurred after urination. He has had moderate lower back pain. No sensory loss or motorweakness. All other systems reviewed and are negative.[facility]. Problems: UTI - Urinary Tract Infection. Asthma. Prostate Cancer. Nephrolithiasis. Additional Surgeries: Prostatectomy. Medications: Unknown. Allergies: contrast dye. 2 Clinical Report - Physicians/Mid Levels [facility] Emergency Department [address] [place] [address] Phone #: ext- [phone] 02/01/2020 21:11 Patient: ARYAN MANN Sex: M : 1950 Age: 69ySOCIAL HISTORYNever smoker. No alcohol use or drug use.ADDITIONAL NOTESThe nursing notes have been reviewed with agreement regarding the chief complaint, HPI, ROS, PMH andpatient medications and allergies.PHYSICAL EXAMVital Signs: 02/01/2020 21:16 BP: 159/77. MAP: 104. HR: 69. RR: 20. O2 saturation: 99%. Temp: 100.6F. Pain level now: 10/10. Have been reviewed. Oxygen saturation normal.Appearance: Alert. Oriented X3. Appears to be in pain. Patient in mild distress. Distress appears dueto pain.Eyes: Pupils equal, round and reactive to light. Eyes normal inspection.ENT: Ears normal. Nose normal. Pharynx normal.Neck: Normal inspection. Neck supple.CVS: Normal heart rate and rhythm. Heart sounds normal. Pulses normal.Respiratory: No respiratory distress. Painless inspiration. Breath sounds normal. Chest nontender.Abdomen: Soft. Mild tenderness in the right side of the abdomen. No guarding or rebound tenderness.Bowel sounds normal. No organomegaly. No mass. Femoral pulses equal.Back: Normal inspection. No CVA tenderness.Skin: Skin warm and dry. Normal skin color. No rash. Normal skin turgor.Extremities: Extremities exhibit normal ROM. No lower extremity edema.Neuro: Oriented X 3. No motor deficit. No sensory deficit. Reflexes normal.LABS, X-RAYS, AND EKGAbdominal CT: A single urinary calculus is present in the right distal ureter (3 mm). There is mildobstruction. Mild hydronephrosis of the right kidney. 3 m rt UVJ stone w mild hydro. Study type:abdomen and pelvis. Abdominal CT performed without contrast. The study was interpreted by theradiologist. Interpretation time: 22:37 02/01/2020.Laboratory Tests: Laboratory tests have been ordered, with results reviewed and considered in themedical decision making process. CT ABD PEL W/O Oral W/O IV Contrast: (LISA: 02/01/2020 21:35) ( MsgRcvd 02/01/2020 23:11) In Progress CT ABD Reason(s): right sided pain, Hx of UTI and Kidney stones, fever TRANSPORTATION: S IV? IV?(Yes) O2? Oxygen?(No) Ro CBC w Diff: (LISA: 02/01/2020 21:31) ( AkgRcvd 02/01/2020 21:41) Final results Test Result Flag Units (Reference) CBC W/AUTOMATED DIFF COMPLETE BLOOD COUNT WBC 10.7 10/uL (4.2 - 11.0) RBC 4.75 10/uL (4.50 - 6.30) HEMOGLOBIN 15.3 g/dL (14.0 - 16.0) HEMATOCRIT 43.7 % (41.0 - 51.0) 3 Clinical Report - Physicians/Mid Levels [facility] Emergency Department [address] [place] [address] Phone #: ext- [phone] 02/01/2020 21:11 Patient: ARYAN MANN Sex: M : 1950 Age: 69y MCV 92.0 fL (80.0 - 94.0) MCH 32.2 pg (27.0 - 34.0) MCHC 35.0 g/dL (31.0 - 36.0) RDW 11.6 % (11.5 - 14.8) PLATELETS 269 10/uL (150 - 450) MPV 9.4 fL (7.4 - 10.4) NEUT 95.1 H % (37.0 - 80.0) LYMPH 2.1 L % (25.0 - 40.0) MONO 0.7 L % (3.0 - 8.0) EOS 1.0 % (0.0 - 7.0) BASO 0.6 % (0.0 - 2.0) %IG 0.5 H % (0.0 - 0.0) %NRBC 0.0 % (0.0 - 0.0) #NEUT 10.20 H 10/uL (2.00 - 6.90) #LYMPH 0.22 L 10/uL (0.60 - 3.40) #MONO 0.07 10/uL (0.00 - 0.90) #EOS 0.11 10/uL (0.00 - 0.70) #BASO 0.06 10/uL (0.00 - 0.20) #IG 0.05 10/uL (0.00 - 0.10) #NRBC 0.00 10/uL (0.00 - 0.00) MANUAL DIFF NOT INDICATED RBC MORPH NOT INDICATEDCMP: (LISA: 02/01/2020 21:31) ( MsgRcvd 02/01/2020 22:03) Final results Test Result Flag Units (Reference) COMPREHENSIVE METABOLIC PANEL COMPREHENSIVE METABOLIC PANEL SODIUM 130 L mEq/L (134 - 153) POTASSIUM 3.2 L mEq/L (3.6 - 5.0) CHLORIDE 88 L mEq/L (98 - 107) CO2 25 MEQ/L (22 - 30) GLUCOSE 146 H MG/DL (65 - 110) BUN 26 H MG/DL (7 - 21) CREATININE 1.1 MG/DL (0.7 - 1.5) BUN/CREAT 24 (8 - 27) TOTAL PROTEIN 6.7 G/DL (6.3 - 8.2) ALBUMIN 4.0 G/DL (3.9 - 5.0) GLOBULIN 2.7 GM/DL (2.4 - 3.2) A/G RATIO 1.5 (0.8 - 2.0) CALCIUM 10.1 MG/DL (8.4 - 10.2) TOTAL BILI 1.3 MG/DL (0.2 - 1.3) ALKALINE PHOS 96 U/L (38 - 126) SGOT/AST 21 U/L (5 - 40) SGPT/ALT 35 U/L (7 - 56) ANION GAP 17.0 H mmol/L (8.0 - 16.0) AGE 69 yrs NON-AA GFR > 60 mL/min AFR AMER GFR >60 mL/min Male GFR Interprentation 20-49 yrs >60 mL/min Ipazcq95-30 yrs >56 mL/min Normal 60-69 yrs >49 mL/min Normal 70-79yrs>42 mL/min Normal 80 and above >35 mL/min Normal Female GFRInterpretation 20-39 yrs >60 mL/min Normal 40-49 yrs >58 mL/minNormal 50-59 yrs >51 mL/min Normal 60-69 yrs >45 mL/min Glnvfj26-73 yrs >39 mL/min Normal 80 and above >32 mL/min NormalLipase: (LISA: 02/01/2020 21:31) ( MsgRcvd 02/01/2020 22:03) Final results Test Result Flag Units (Reference) LIPASE 19 U/L (13 - 60) 4 Clinical Report - Physicians/Mid Levels [facility] Emergency Department [address] [place] [address] Phone #: ext- [phone] 02/01/2020 21:11 Patient: ARYAN MANN Sex: M : 1950 Age: 69y Urinalysis: (LISA: 02/01/2020 22:00) ( MsgRcvd 02/01/2020 23:10) Final results Test Result Flag Units (Reference) URINALYSIS URINALYSIS SOURCE R COLOR red (NORMAL: Yello CLARITY clear (NORMAL: Clear SPEC GRAVITY 1.020 (1.001 - 1.030 pH 5 (5 - 9) GLUCOSE NORM (NORMAL: Negat BILIRUBIN NEG (NORMAL: Negat KETONE 15 A (NORMAL: Negat PROTEIN 500 A (NORMAL: Negat NITRITE NEG (NORMAL: Negat BLOOD 150 A (NORMAL: Negat LEUK EST NEG (NORMAL: Negat UROBILINOGEN NOR (less than 1.0 MICROSCOPIC See Below WBC 3 - 5 (NORMAL: NONE RBC TNTC A (NORMAL: NONE EPITHELIAL FEW (NORMAL: NONE Lactic Acid: (LISA: 02/01/2020 21:31) ( MsgRcvd 02/01/2020 21:46) Final results Test Result Flag Units (Reference) LACTIC ACID 2.9 H MMOL/L (0.2 - 2.2).PROGRESS AND PROCEDURESCourse of Care: 23:03 02/01/20. workup all in except UA, CTAP w/o results show 3 mm rt UVJ stone wmild hydro; pt doing better; will try to transfer out to urology at [facility] since we have infected stone and nourology on-call; iv AB's will be given 23:12 02/01/20. UA back and infected; Dr. Virk, urologist, called back and recommended sending pt to ER; will give Zosyn IV; pt has sepsis secondary to obstructive stone; we'll be judicious w IV fluids since pt is elderly 23:33 02/01/20. Dr. Gutierrez, ER MD, accepted pt for transfer; pt started having recurrence of pain; will give some analgesia before d/c. Critical care performed (60 minutes). Time is exclusive of separately billable procedures. Time includes: direct patient care, patient reassessment, coordination of patient care, interpretation of data (laboratory data), medical consultation and documentation of patient care- see progress notes. Patient and son counseled in person regarding the patient's stable condition, test results, diagnosis and need for transfer. Patient and son agrees with plan of care. Disposition: Benefits, risks and alternatives to transfer explained to patient and son. Transferred to 5 Clinical Report - Physicians/Mid Levels [facility] Emergency Department [address] [place] [address] Phone #: ext- [phone] 02/01/2020 21:11 Patient: ARYAN MANN Sex: M : 1950 Age: 69y [facility]. Summary of care (CCDA) provided to transport team, patient and transfer facility. Condition: good and stable.CLINICAL IMPRESSION Severe sepsis with acute renal failure. No shock. Right renal colic in the right ureter with a single calculus with hydronep hrosis, urinary tract infection and pyelonephritis. Ureterolithiasis (single stone) in the right ureter with renal colic, hydronephrosis and acute pyelonephritis. Acute urinary tract infection with pyelonephritis associated with obstruction.(Electronically signed by Ag Ann M.D. 02/02/2020 04:42) Name Value Range Interpretation Code Description Data Melia rce(s) Supporting Document(s) ID Date Data Source [id number] 02/01/2020 09:26:00 PM EDT [facility] Addenda for ARYAN MANN VisitID: [id number] Date: 9:26blood culture grew Enterobacteriaceae and Escherichia coli, report fax[address]mitted(Electronically signed by Daisy Watson R.N. - 02/03/2020 9:26)02/04/2020 10:01Cresults faxed to [address] at [phone](Electronically signed by Daisy Watson R.N. - 02/04/2020 10:01) Name Value Range Interpretation Code Description Data Melia rce(s) Supporting Document(s) ID Date Data Source [id number] 02/02/2020 03:10:00 PM EDT [place] [address] [place] [address] PHONE: [phone] FAX: [phone] Name .................. : MACKENZIE Gomez Acct Number.................. : [id number] [facility]... : [id number] Stay type ............. : E/R Discharge Date......... ... : Admit Date ......... : 02/01/20 Admit Phys .................... : VY RODRIGUEZ Date of ....... : 1950 Family Phys ................... : PÉREZ GIORDANO Phone .................. : [phone] Age ................................ : 69 Film# .................. .:[id number] Sex ................................. : M Unsigned transcriptions are preliminary reports and do not represent a medical or legal document CT ABD & PELV W/[place] ORAL W/[place] [id number] COMPLETE:02/01/20 23:11 DLA [id number] Reason(s): right sided pain, Hx of UTI and Kidney stones, fever CT OF THE ABDOMEN AND PELVIS WITHOUT CONTRAST: INDICATION: Right-sided pain and history of urinary tract infection and kidney stones. FINDINGS: The chest base is clear. There are 6 or 7 subcentimeter low attenuation lesions in the liver, likely cysts or hemangiomas but too small to characterize. There is normal noncontrast CT appearance of the spleen, pancreas and adrenal glands. The bilateral kidneys demonstrate multiple nonobstructive stones, all less than 5 mm in size. There is mild right hydronephrosis due to a 3 mm right ureterovesicular junction stone. No gallbladder wall thickening or biliary duct dilatation. The visualized bowel is normal in caliber. The appendix is normal. There is mild diverticulosis without evidence of diverticulitis. The bladder is collapsed, which limits evaluation. The pelvic organs appear normal. No acute osseous abnormality. No lymphadenopathy. IMPRESSION: 2 mm obstructive stone in the right ureterovesicular junction causing mild hydronephrosis. There are multiple bilateral nonobstructive stones. While performing the above CT examination, radiation dose reduction was accomplished utilizing automated exposure control, adjusting of the mA and kV based on the patient's body size and/or the use of imperative reconstructive techniques. CT dose: 862.3 mGycm [address] [place] [address] [place] [address] PHONE: [phone] FAX: [phone] Name .................. : MACKENZIE Gomez Acct Number.................. : [id number] ROOM. ................. : TR-07 Number ................... : [id number] Stay type ............. : E/R Discharge Date......... ... : Admit Date ......... : 02/01/20 Admit Phys .................... : VY RODRIGUEZ Date of ....... : 1950 Family Phys ................... : PÉREZ GIORDANO Phone .................. : [phone] Age ................................ : 69 Film# .................. .:[id number] Sex ................................. : M Unsigned transcriptions are preliminary reports and do not represent a medical or legal document CT ABD & PELV W/[place] ORAL W/[place] [id number] COMPLETE:02/01/20 23:11 DLA [id number] Reason(s): right sided pain, Hx of UTI and Kidney stones, fever Electronically Reviewed and Signed By Lizandro Saldana M.D. , 02/02/20 15:10, DYLANY Transcribe Initials: DZ , Transcribe Date: 02/02/20 00:37, Dictation Date: Copy for: EMERGENCY DEPT [place] Copy for: 710 MED REC DISCHARGED Page 2 of 2 Name Value Range Interpretation Code Description Data Melia rce(s) Supporting Document(s) ID Date Data Source [id number] 02/05/2020 07:24:00 PM EDT [facility] Name Value Range Interpretation Code Description Data Melia rce(s) Supporting Document(s) CULTURE URINE [facility] _CULTURE URINE_$$[id number]$$[id number]$$[id number]$$549012$$919561$$757667$$137177$$453237$$939548$$ 386546$$743816$$770582$$087816$$987766$$534909$$656529$$816546$$703739$$678268$$ 164949$$155596$$183308$$031684$$285324$$840234$$770988$$[id number] -- Continued on next page --Patient: MACKENZIE Gomez Order: [id number] Page 2Culture: CULTURE URINE Status: Final ==== -- Continued on next page --Patient: MACKENZIE Gomez Order: [id number] Page 2Culture: CULTURE URINE Status: Prelim =====$$[id number]$$[id number] DATE/TIME: 02/05/2020 14:07Culture: CULTURE URINE Status: FinalIsolate 1 Escherichia coli Flag: A . . . . . . .110,000-25,000 colony forming units per mLCefazolin <=4 ug/mLCefazolin with an ABDULKADIR <=16 predicts susceptibility to the oral agentscefaclor, cefdinir, cefpodoxime, cefprozil, cefuroxime, cephalexin,and loracarbef when used for therapy of uncomplicated urinary tractinfections due to E. coli, Klebsiella pneumoniae, and Proteusmirabilis. Previous result entered on 02/04/2020 03:42 ET Escherichia coliUrine Culture,Comprehensive: L5Mvctdlueukp coli Flag: APatient: MACKENZIE Gomez Order: [id number] Page 3Culture: CULTURE URINE Status: Final ISOLATE 1 Escherichia coli Isolate 1Antibiotic ABDULKADIR IntUnits ug/mL ----Amoxicillin/Clavulanic Acid S S . . . . . .20-8Ampicillin S S . . . . . .28-1Cefepime S S . . . . . .6644-9Ceftriaxone S S . . . . . .141-2Cefuroxime S S . . . . . .145- 3Ciprofloxacin S S . . . . . .185-9Ertapenem S S . . . . . .24918-8Zzatrcuuca S S . . . . . .267-5Imipenem S S . . . . . .279-0Levofloxacin S S . . . . . .73247-2Psryjnlxz S S . . . . . .6652-2Nitrofurantoin S S . . . . . .363-2Piperacillin/Tazobactam S S . . . . . .412-7Tetracycline S S . . . . . .496-0Tobramycin S S . . . . . .508-2Trimethoprim/Sulfa S S . . . . . .516-5P1 Test performed by: Heather Matias GAY #: [id number] [address] [place] [address] [id number] [facility] [id number] Director : Kurtis Hillman MD NPI #:Java Programmer Analyst : 02/04/20.1106.XMT.SENT REF 02/05/20.1924.XMT.SENT REF 02/06/20.1752.XMT.SENT REF ID Date Data Source [id number] 02/01/2020 11:10:00 PM EDT [facility] Name Value Range Interpretation Code Description Data Melia rce(s) Supporting Document(s) URINALYSIS [facility] URINALYSIS SOURCE R [facility] COLOR red NORMAL: Yellow [facility] CLARITY clear NORMAL: Clear [facility] Specific gravity of Urine by Test strip 1.020 1.001 - 1.030 [facility] pH 5 5 - 9 [facility] Glucose [Mass/volume] in Urine by Test strip NORM NORMAL: Negat michaela [facility] Bilirubin.total [Presence] in Urine by Test strip NEG NORMAL: Negative [facility] Ketones [Presence] in Urine by Test strip 15 NORMAL: Negative [facility] Protein [Mass/volume] in Urine by Test strip 500 NORMAL: Negat michaela [facility] Nitrite [Presence] in Urine by Test strip NEG NORMAL: Negative [facility] BLOOD 150 NORMAL: Negative [facility] Leukocyte esterase [Presence] in Urine by Test strip NEG SUKHI L: Negative [facility] Urobilinogen [Mass/volume] in Urine by Test strip NOR less bebeto n 1.0 mg/dL [facility] MICROSCOPIC See Below [facility] ital WBC 3 - 5 NORMAL: NONE SEEN [facility] Erythrocytes [#/volume] in Urine by Test strip TNTC NORMAL: NON E SEEN A [facility] EPITHELIAL FEW NORMAL: NONE SEEN [facility] ID Date Data Source [id number] 02/02/2020 08:56:00 PM EDT [facility] RESULTS CALLED TO ALEXIS AT [facility] AT [address] CULVER,RESULTS READ BACKThe FilmArray BCID Panel is a qualitative multiplexednucleic acid-based test - PCRNormal results for each test is "Not detected"The BCID panel detects KPC,mecA,Miles/Bresistance,enterococcus,L.monocytogenes,Staphlococcus,S.aureus,St reptococcus,GRP B, GRP A, S.pneumoniae,A.baumanii,Enterobacteriaceae,E.cloacae complex,E.col i,K.oxytoca,K.pneumoniae,Proteus,S.marcescens,H.influenzae,N.meningitidis,P.aeru ginosa,C. albicans,C.glabrata ,C.krusei,C.parapsilosis,C.tropicalisTraditional Culture ID and Sensitivities will still beperformed on all positive blood cultures.The FilmArray BCID panel may not distinguish mixed cultureswhen two or more species of the same genus or organism groupare present in a specimen.This test is a qualitative test and does not provide aquantitative value for the organism(s)in the sample.Antimicrobial resistance can occur via multiple mechanisms.A Not detected result for the NearWooArray antimicrobialresistance gene assays does not indicate antimicrobialsusceptibility. Subculturing and standard susceptibilitytesting of isolates is requried to determine antimicrobialsusceptibility.Results from this test must be correlated with the clinicalhistory, epidemiological data,and otherdata available to theclinician evaluating the patient.Enterobacteriaceae speciesEscherichia coli detected Name Value Range Interpretation Code Description Data Melia rce(s) Supporting Document(s) ID Date Data Source [id number] 02/03/2020 08:39:00 AM EDT [facility] Name Value Range Interpretation Code Description Data [facility] rce(s) Supporting Document(s) CULTURE BLOOD [facility] spital _CULTURE BLOOD_{ PRELIM [place] [address] CLIA# [id number] SEE SCANNED REPORT ID Date Data Source [id number] 02/04/2020 06:33:00 AM EDT [facility] GRAM STAIN=GRAM NEGATIVE RODS IN AEROBIC [id number]/24/20 0631 CALLED TO MARTI Booker BY BRIGITTE, RESULTS READ BACK02/02/20 RESULTS CALLED TO ALEXIS SANTANA [facility] BY JOELLE CULVER [id number], RESULTS READ BACKESCHERICHIA COLI Name Value Range Interpretation Code Description Data [facility] rce(s) Supporting Document(s) TRIMETHOPRIM/SULFAMETHOXAZOLE <2/38 Villegas sceptible. Indicates for microbiology susceptibilities only. [facility] Amoxicillin+Clavulanate [Susceptibility] by Minimum inhibitory concentration (ABDULKADIR) <8/4 Susceptible. Indicates for microbiology s usceptibilities only. [facility] Ampicillin [Susceptibility] by Minimum inhibitory concentration (ABDULKADIR) <8 Susceptible. Indicates for microbiology susceptibilities only. [facility] Ampicillin+Sulbactam [Susceptibility] by Minimum inhib itory concentration (ABDULKADIR) <8/4 Susceptible. Indicates for microbiology suscepti bilities only. [facility] Cefazolin [Susceptibility] by Minimum inhibitory concentration ( ABDULKADIR) <2 Susceptible. Indicates for microbiology susceptibilities only. [facility] Cefotaxime [Susceptibility] by Minimum inhibitory concentration (ABDULKADIR) <2 Susceptible. Indicates for microbiology susceptibilities only. [facility] Ceftriaxone [Susceptibility] by Minimum inhibitory concentration (ABDULKADIR) <1 Susceptible. Indicates for microbiology susceptibilities only. [facility] Ciprofloxacin [Susceptibility] by Minimum inhibitory concentrati on (ABDULKADIR) <1 Susceptible. Indicates for microbiology susceptibilities only. [facility] Ertapenem [Susceptibility] by Minimum inhibitory concentration ( ABDULKADIR) <0.5 Susceptible. Indicates for microbiology susceptibilities only. [facility] Gentamicin [Susceptibility] by Minimum inhibitory concentration (ABDULKADIR) <2 Susceptible. Indicates for microbiology susceptibilities only. [facility] Imipenem [Susceptibility] by Minimum inhibitory concentration (M IC) <1 Susceptible. Indicates for microbiology susceptibilities only. [facility] Tetracycline [Susceptibility] by Minimum inhibitory concentratio n (ABDULKADIR) <4 Susceptible. Indicates for microbiology susceptibilities only. [facility] Tobramycin [Susceptibility] by Minimum inhibitory concentration (ABDULKADIR) <4 Susceptible. Indicates for microbiology susceptibilities only. [facility] Levofloxacin [Susceptibility] by Minimum inhibitory concentratio n (ABDULKADIR) <2 Susceptible. Indicates for microbiology susceptibilities only. [facility] Cefepime [Susceptibility] by Minimum inhibitory concentration (M IC) <8 Susceptible. Indicates for microbiology susceptibilities only. [facility] Piperacillin+Tazobactam [Susceptibility] by Minimum inhibitory concentration (ABDULKADIR) <16 Susceptible. Indicates for microbiology s usceptibilities only. [facility] ID Date Data Source [id number] 02/07/2020 07:02:00 AM EDT [facility] GRAM STAIN=GRAM NEGATIVE RODS IN AEROBIC [id number]/24/20 0631 CALLED TO MARTI Booker BY BRIGITTE, RESULTS READ BACK02/02/20 RESULTS CALLED TO ALEXIS SANTANA [facility] BY JOELLE CULVER [id number], RESULTS READ BACKESCHERICHIA COLI Name Value Range Interpretation Code Description Data Melia rce(s) Supporting Document(s) Bacteria identified in Blood by Culture [facility] NO GROWTH AFTER 5 DAYS ID Date Data Source [id number] 02/02/2020 10:14:00 PM EDT [facility] Name Value Range Interpretation Code Description Data Melia rce(s) Supporting Document(s) CULTURE BLOOD [facility] _CULTURE BLOOD_{ PRELIM AEROBIC Growth NORMAL: NEGATIVE [facility] ID Date Data Source [id number] 02/01/2020 10:03:00 PM EDT [facility] Name Value Range Interpretation Code Description Data Melia rce(s) Supporting Document(s) Lipase [Enzymatic activity/volume] in Serum or Plasma 19 U/L 13 - 60 [facility] ID Date Data Source [id number] 02/01/2020 10:03:00 PM EDT [facility] Name Value Range Interpretation Code Description Data Melia rce(s) Supporting Document(s) COMPREHENSIVE METABOLIC PANEL [facility] COMPREHENSIVE METABOLIC PANEL Sodium [Moles/volume] in Serum or Plasma 130 mEq/L 134 - 153 L [facility] Potassium [Moles/volume] in Serum or Plasma 3.2 mEq/L 3.6 - 5.0 L [facility] Chloride [Moles/volume] in Serum or Plasma 88 mEq/L 98 - 107 L [facility] Carbon dioxide, total [Moles/volume] in Serum or Plasma 25 MEQ/L 22 - 30 [facility] Glucose [Mass/volume] in Serum or Plasma 146 MG/DL 65 - 110 H [facility] BUN 26 [facility]DL 7 [facility] Creatinine [Mass/volume] in Serum or Plasma 1.1 MG/DL 0.7 - 1.5 [facility] BUN/CREAT 24 8 - 27 [facility] Protein [Mass/volume] in Serum or Plasma 6.7 G/DL 6.3 - 8.2 [facility] Albumin [Mass/volume] in Serum or Plasma 4.0 G/DL 3.9 - 5.0 [facility] Globulin [Mass/volume] in Serum by calculation 2.7 GM/DL 2.4 - 3.2 [facility] A/G RATIO 1.5 0.8 - 2.0 [facility] Calcium [Mass/volume] in Serum or Plasma 10.1 MG/DL 8.4 - 10.2 [facility] Bilirubin.total [Mass/volume] in Serum or Plasma 1.3 MG/DL 0.2 - 1.3 [facility] Alkaline phosphatase [Enzymatic activity/volume] in Serum or Plasma 96 U/L 38 - 126 [facility] Aspartate aminotransferase [Enzymatic activity/volume] in Serum or Plasma 21 U/L 5 - 40 [facility] Alanine aminotransferase [Enzymatic activity/volume] in Seru m or Plasma 35 U/L 7 - 56 [facility] Anion gap 3 in Serum or Plasma 17.0 mmol/L 8.0 - 16.0 H [facility] AGE 69 yrs [facility] NON-AA GFR >60 mL/min [facility] AFR AMER GFR >60 mL/min [facility] Male GFR In terprentation 20-49 yrs >60 mL/min Normal 50-59 yrs >56 mL/min Normal 60-69 yrs >49 mL/min Normal 70-79yrs >42 mL/min Normal 80 and above >35 mL/min Normal Female GFR Interpretation 20-39 yrs >60 mL/min Normal 40-49 yrs >58 mL/min Normal 50-59 yrs >51 mL/min Normal 60-69 yrs >45 mL/min Normal 70-79 yrs >39 mL/min Normal 80 and above >32 mL/min Normal ID Date Data Source [id number] 02/01/2020 09:46:00 PM EDT [facility] Name Value Range Interpretation Code Description Data Melia rce(s) Supporting Document(s) Lactate [Moles/volume] in Serum or Plasma 2.9 MMOL/L 0.2 - 2.2 H [facility] ID Date Data Source [id number] 02/01/2020 09:41:00 PM EDT [facility] Name Value Range Interpretation Code Description Data Melia rce(s) Supporting Document(s) CBC W/AUTOMATED DIFF [facility] COMPLETE BLOOD COUNT Leukocytes [#/volume] in Blood by Automated count 10.7 10^3/uL 4.2 - 11.0 [facility] Erythrocytes [#/volume] in Blood by Automated count 4.75 10^6/uL 4. 50 - 6.30 [facility] Hemoglobin [Mass/volume] in Blood 15.3 g/dL 14.0 - 16.0 [facility] Hematocrit [Volume Fraction] of Blood by Automated count 43.7 % 4 1.0 - 51.0 [facility] Erythrocyte mean corpuscular volume [Entitic volume] by Auto mated count 92.0 fL 80.0 - 94.0 [facility] Erythrocyte mean corpuscular hemoglobin [Entitic mass] by Automated count 32.2 pg 27.0 - 34.0 [facility] Erythrocyte mean corpuscular hemoglobin concentration [Mass/volume] by Automated count 35.0 g/dL 31.0 - 36.0 [facility] Erythrocyte distribution width [Ratio] by Automated count 11.6 % 11.5 - 14.8 [facility] Platelets [#/volume] in Blood by Automated count 269 10^3/uL 150 - 45 0 [facility] Platelet mean volume [Entitic volume] in Blood by Automated count 9.4 fL 7.4 - 10.4 [facility] Neutrophils/100 leukocytes in Blood by Automated count 95.1 % 37. 0 - 80.0 H [facility] Lymphocytes/100 leukocytes in Blood by Manual count 2.1 % 25.0 - 40.0 L [facility] Monocytes/100 leukocytes in Blood by Automated count 0.7 % 3.0 - 8.0 L [facility] Eosinophils/100 leukocytes in Blood by Automated count 1.0 % 0.0 - 7.0 [facility] Basophils/100 leukocytes in Blood by Automated count 0.6 % 0.0 - 2.0 [facility] %IG 0.5 % 0[facility]0 - [facility] % 0.0 - 0.0 [facility] al Neutrophils [#/volume] in Blood by Automated count 10.20 10^3/uL 2. 00 - 6.90 H [facility] Lymphocytes [#/volume] in Blood by Automated count 0.22 10^3/uL 0.60 - 3.40 L [facility] Monocytes [#/volume] in Blood by Automated count 0.07 10^3/uL 0.00 - 0.90 [facility] Eosinophils [#/volume] in Blood by Automated count 0.11 10^3/uL 0.00 - 0.70 [facility] Basophils [#/volume] in Blood by Automated count 0.06 10^3/uL 0.00 - 0.20 [facility] #IG 0.05 10^3/uL 0.00 - 0.10 [facility] ospital #NRBC 0.00 10^3/uL 0.00 - 0.00 [facility] MANUAL DIFF NOT INDICATED [facility] RBC MORPH NOT INDICATED [facility] sp[facility] ID Date Data Source [id number] 01/19/2020 12:00:00 AM EDT [facility] ology Imaging John Galicia MD Patient Name: ARYAN [id number] Date of : 1950uilding A Date of Exam: 01/19/2020INDIANA Garcia [id number]#: Fax: [phone] EXAM: ABDOMEN AP (KUB) X-RAYCLINICAL INFORMATION: History of renal calculi.Comparison, multiples, the latest 12/07/2013.Once again, there are multiple calcifications seen superimposed over eachnephric silhouette consistent with bilateral renal calculi too numerous tocount or individually assess. There appears to be an increase number insize of some of these calcifications. No abnormal paraspinalcalcifications have developed. There are stable left hemipelviccalcifications consistent pelvic phleboliths.Degenerative changes are again seen involving the hips and spine.IMPRESSION:Calcifications as described above.ABDIAZIZ Hernadez/Hanane you for referring ARYAN MANN to our office. Electronically Signed - SAIMA CARRASQUILLO DO 01/19/20 16:01 Name Value Range Interpretation Code Description Data Melia rce(s) Supporting Document(s) Procedure Social History Code Duration Value Status Description Data Source(s ) Smoking 09/09/2020 12:00:00 AM EDT Patient has never smoked co mpleted Patient has never smoked MEDENT ([facility] ) Vital Signs ID Date Data Source UNK Name Value Range Interpretation Code Description Data Source(s) Body weight 229 [lb_av] 229 [lb_av] eCW1 ([facility]) Body weight 103.87 kg 103.87 kg eCW1 ([facility]) Body height 72 [in_i] 72 [in_i] eCW1 ([facility]) Body mass index (BMI) [Ratio] 31.05 kg/m2 31.05 kg/m2 eCW1 ([facility]) Heart rate 80 /min 80 /min eCW1 ([facility]) Respiratory rate 18 /min 18 /min eCW1 ([facility]) Body temperature 98.6 [degF] 98.6 [degF] eCW1 ( [facility]) Systolic blood pressure 134 mm[Hg] 134 mm[Hg] e CW1 ([facility]) Diastolic blood pressure 88 mm[Hg] 88 mm[Hg] eCW1 ([facility]) Systolic blood pressure 145 mm[Hg] 145 mm[Hg] M EDENT ([facility]) Diastolic blood pressure 80 mm[Hg] 80 mm[Hg] MEDENT ([facility]) Respiratory rate 18 /min 18 /min MED[facility] ( [facility]) Heart rate 69 /min 69 /min [facility] ([facility] Body mass index (BMI) [Ratio] 32.9 kg/m2 32.9 k g/m2 [facility] ([facility]) Body weight 226.38 [lb_av] 226.38 [lb_av] MEDEN T ([facility]) Body height 69.5 [in_i] 69.5 [in_i] [facility] ([facility] 5'9.50" Body height 72 [in_i] 72 [in_i] eCW1 ([facility]) Body mass index (BMI) [Ratio] 27.94 kg/m2 27.94 kg/m2 eCW1 ([facility]) Body temperature 97.5 [degF] 97.5 [degF] eCW1 ( [facility]) Systolic blood pressure 138 mm[Hg] 138 mm[Hg] e CW1 ([facility]) Diastolic blood pressure 74 mm[Hg] 74 mm[Hg] eCW1 ([facility]) Body weight 206 [lb_av] 206 [lb_av] eCW1 ([facility]) Heart rate 780 /min 780 /min eCW1 ([facility]) Respiratory rate 18 /min 18 /min eCW1 ([facility]) Systolic blood pressure 128 mm[Hg] 128 mm[Hg] M EDENT ([facility]) Body height 71 [in_i] 71 [in_i] MED[facility] ([facility] 5'11" Heart rate 80 /min 80 /min [facility] Body weight 213.38 [lb_av] 213.38 [lb_av] MEDEN T ([facility]) Respiratory rate 18 /min 18 /min [facility] ( [facility]) Body mass index (BMI) [Ratio] 29.8 kg/m2 29.8 k g/m2 [facility] ([facility]) Diastolic blood pressure 80 mm[Hg] 80 mm[Hg] [facility] ([facility]) Patient Treatment Plan of Care Planned Activity Planned Date Details Description Data Source (s) potassium citrate 10 MEQ Extended Release Oral Tablet 06/30/2020 12:00:00 AM EST eCW1 ([facility]) potassium citrate 10 MEQ Extended Release Oral Tablet 06/30/2020 12:00:00 AM EST eCW1 ([facility]) potassium citrate 10 MEQ Extended Release Oral Tablet 06/30/2020 12:00:00 AM EST eCW1 ([facility]) Ciprofloxacin 500 MG Oral Tablet 03/25/2020 12:00:00 AM EST eCW1 ([facility]) Ciprofloxacin 500 MG Oral Tablet 03/25/2020 12:00:00 AM EST eCW1 ([facility]) Ciprofloxacin 500 MG Oral Tablet 03/25/2020 12:00:00 AM EST eCW1 ([facility]) Ciprofloxacin 500 MG Oral Tablet 03/25/2020 12:00:00 AM EST eCW1 ([facility]) Ciprofloxacin 500 MG Oral Tablet 03/25/2020 12:00:00 AM EST eCW1 ([facility]) Ciprofloxacin 500 MG Oral Tablet 03/25/2020 12:00:00 AM EST eCW1 ([facility]) Ciprofloxacin 500 MG Oral Tablet 03/25/2020 12:00:00 AM EST eCW1 ([facility]) Phenazopyridine hydrochloride 200 MG Oral Tablet [Pyri dium] 03/23/2020 12:00:00 AM EST eCW1 ([facility]) Phenazopyridine hydrochloride 200 MG Oral Tablet [Pyri dium] 03/23/2020 12:00:00 AM EST eCW1 ([facility]) Phenazopyridine hydrochloride 200 MG Oral Tablet [Pyri dium] 03/23/2020 12:00:00 AM EST eCW1 ([facility]) Phenazopyridine hydrochloride 200 MG Oral Tablet [Pyri dium] 03/23/2020 12:00:00 AM EST eCW1 ([facility]) Phenazopyridine hydrochloride 200 MG Oral Tablet [Pyri dium] 03/23/2020 12:00:00 AM EST eCW1 ([facility]) Phenazopyridine hydrochloride 200 MG Oral Tablet [Pyri dium] 03/23/2020 12:00:00 AM EST eCW1 ([facility]) Phenazopyridine hydrochloride 200 MG Oral Tablet [Pyri dium] 03/23/2020 12:00:00 AM EST eCW1 ([facility]) Phenazopyridine hydrochloride 200 MG Oral Tablet [Pyri dium] 03/23/2020 12:00:00 AM EST eCW1 ([facility]) Phenazopyridine hydrochloride 200 MG Oral Tablet [Pyri dium] 03/23/2020 12:00:00 AM EST eCW1 ([facility]) Sulfamethoxazole 800 MG / Trimethoprim 160 MG Oral Tab let [Bactrim] 02/26/2020 12:00:00 AM EDT eCW1 ([facility]) Sulfamethoxazole 800 MG / Trimethoprim 160 MG Oral Tab let [Bactrim] 02/26/2020 12:00:00 AM EDT eCW1 ([facility]) Sulfamethoxazole 800 MG / Trimethoprim 160 MG Oral Tab let [Bactrim] 02/26/2020 12:00:00 AM EDT eCW1 ([facility]) Sulfamethoxazole 800 MG / Trimethoprim 160 MG Oral Tab let [Bactrim] 02/26/2020 12:00:00 AM EDT eCW1 ([facility]) Sulfamethoxazole 800 MG / Trimethoprim 160 MG Oral Tab let [Bactrim] 02/26/2020 12:00:00 AM EDT eCW1 ([facility]) Sulfamethoxazole 800 MG / Trimethoprim 160 MG Oral Tab let [Bactrim] 02/26/2020 12:00:00 AM EDT eCW1 ([facility]) Sulfamethoxazole 800 MG / Trimethoprim 160 MG Oral Tab let [Bactrim] 02/26/2020 12:00:00 AM EDT eCW1 ([facility]) Sulfamethoxazole 800 MG / Trimethoprim 160 MG Oral Tab let [Bactrim] 02/26/2020 12:00:00 AM EDT eCW1 ([facility]) Sulfamethoxazole 800 MG / Trimethoprim 160 MG Oral Tab let [Bactrim] 02/26/2020 12:00:00 AM EDT eCW1 ([facility]) Sulfamethoxazole 800 MG / Trimethoprim 160 MG Oral Tab let [Bactrim] 02/26/2020 12:00:00 AM EDT eCW1 ([facility]) Sulfamethoxazole 800 MG / Trimethoprim 160 MG Oral Tab let [Bactrim] 02/26/2020 12:00:00 AM EDT eCW1 ([facility])
[2021-03-16] MEDS ORDERED: MIDAZOLAM INJ 2MG/2ML VIAL (J2250 PER 1MG) As Ordered ONE (07:34)
[2021-03-16] MEDS ORDERED: fentaNYL 100 MCG/2 ML INJECTION (J3010) As Ordered ONE (07:34)
[2021-03-16] MEDS ORDERED: PERC5TAB12 PO (08:18)
[2021-03-16] MEDS ORDERED: FLOM0.4C39 PO (08:18)
[2021-03-16] MEDS ORDERED: ONDANSETRON 4MG/2ML VIAL As Ordered ONE (08:19)
[2021-03-16 09:00] VITALS: BP 142/81
[2021-03-16] MEDS ORDERED: oxyCODONE 5MG TAB PO PRN (09:05)
[2021-03-16] MEDS ORDERED: LR 1,000 ML IV SCH (09:05)
[2021-03-16] MEDS ORDERED: ONDANSETRON 4MG/2ML VIAL IV PRN (09:05)
== END 2021-03-16 09:16 | disposition home or self-care (01) ==
LOC: M SDC 07:22
PROVIDERS: ATTEND Urology
DX: N20.0 Calculus of kidney (principal); M10.9 Gout, unspecified; J45.909 Unspecified asthma, uncomplicated; M54.50 Low back pain, unspecified; I87.8 Other specified disorders of veins; Z85.46 Personal history of malignant neoplasm of prostate; Z79.82 Long term (current) use of aspirin; Z79.899 Other long term (current) drug therapy; Z91.040 Latex allergy status; Z91.013 Allergy to seafood
CPT/HCPCS: 50590; 74018; J2250; J2405; J3010

== ENCOUNTER → 2021-03-16 | Outpatient (CLI) | payer MEDICARE ==
[~2021-03-16] MED LIST changes: +PERC5TAB12 PO
--- NOTE | 2021-03-16 09:36 | REP ---
INDICATION: PRE SURGERY. COMPARISON: 02/15/2021 latest prior FINDINGS: KUB shows the intestinal gas pattern to be nonspecific. The organ silhouettes insofar as delineated are unremarkable. There is no evidence of free intraperitoneal air. Calcifications are again seen superimposed over each nephric silhouette status quo. There are pelvic phleboliths status quo. IMPRESSION: No significant change <Electronically signed by Dayo Buckner > 03/16/21 0922
--- NOTE | 2021-03-16 09:41 | RO ---
OPERATIVE NOTE DATE OF OPERATION: 03/16/2021 PREOPERATIVE DIAGNOSIS: Right kidney stones. POSTOPERATIVE DIAGNOSIS: Right kidney stones. PROCEDURES: Right extracorporeal shock wave lithotripsy. SURGEON: John Hernandez MD. RATCHET SETTER: None. ANESTHESIA: MAC. OPERATIVE INDICATIONS: This is a 71-year-old male who was found to have bilateral kidney stones measuring up to about 5-6 mm on the right and about 7-8 mm on the left. It was recommended that he undergone staged ESWL starting first on the right side. DESCRIPTION OF PROCEDURE: The patient was brought to the operating room and MAC anesthesia was administered. Prophylactic antibiotics were infused. He was placed in the supine position in preparation for right-sided extracorporeal shock wave lithotripsy. Fluoroscopy and ultrasonography were utilized to monitor the stone position and fragmentation throughout the procedure. Shock waves were then delivered to the right-sided kidney stones targeting mainly the larger 6-mm mid pole stone. Shock waves were delivered ungated. There were no arrhythmias. The larger stone did appear to fragment well. After 2500 shocks, the procedure was concluded. The patient was awakened from anesthesia and transported to the recovery room in stable condition. ESTIMATED BLOOD LOSS: 0 mL. COMPLICATIONS: None. SPECIMEN: None. PLAN: The patient will follow up in the Urology Clinic in a few weeks with imaging prior to assess the residual stone burden. At that time, we will also get him set up for left-sided extracorporeal shock wave lithotripsy. BROOK
== END ==
LOC: M RAD 07:02
PROVIDERS: ATTEND Urology
DX: Z01.818 Encounter for other preprocedural examination (principal); N20.0 Calculus of kidney; I87.8 Other specified disorders of veins

== ENCOUNTER → 2021-04-04 | Outpatient (CLI) | payer MEDICARE ==
[~2021-04-04] MED LIST changes: -LIDOCAINE 1% MDV 20ML VIAL SQ PRN; -LR 1,000 ML IV ONE; +PERC5TAB12 PO; -ceFAZolin SOD 2 GM in IV 1 EA IV ONE
--- NOTE | 2021-04-04 10:22 | REP ---
INDICATION: CALCULUS OF KIDNEY COMPARISON: None. TECHNIQUE: Supine view of the abdomen and pelvis. FINDINGS: Bowel gas pattern is nonspecific and without obstruction or perforation. No organomegaly. Rounded calcifications in the left mid abdomen likely representing renal stones. Skeletal structures demonstrate stable degenerative changes.. IMPRESSION: Left renal calculi again identified and unchanged. <Electronically signed by Saud Farrell > 04/04/21 1016
== END ==
LOC: M PLAIMG 09:30
PROVIDERS: ATTEND Urology
DX: N20.0 Calculus of kidney (principal)

== ENCOUNTER → 2021-04-11 | Outpatient (REF) | payer MEDICARE ==
[~2021-04-11] MED LIST changes: -CEFD1CAP8 PO; +CEFD300C41 PO
[2021-04-15 17:07] LABS: Ca Ox Monohydrate 100 % (.); Size 3x2 mm (.)
== END ==
LOC: M SMT 10:17
PROVIDERS: ATTEND Nurse Practitioner Women's Health
DX: N20.0 Calculus of kidney (principal)

== ENCOUNTER → 2021-04-22 | Outpatient (CLI) | payer MEDICARE | LOC: M LABSMTC 09:30 | PROVIDERS: ATTEND Anesthesiology | DX: Z01.818 Encounter for other preprocedural examination (principal); Z20.828 Contact with and (suspected) exposure to other viral communicable diseases ==

== ENCOUNTER → 2021-04-24 | Outpatient (CLI) | payer MEDICARE ==
[2021-04-24 11:23] LABS: APPEARANCE, URINE CLEAR (CLEAR); BACTERIA, URINE AUTO NEGATIVE (NEGATIVE); BILIRUBIN, URINE AUTO NEGATIVE (NEGATIVE); BLOOD, URINE BLOOD NEGATIVE (NEGATIVE); COLOR, URINE YELLOW (YELLOW); GLUCOSE, URINE (UA) AUTO NEGATIVE (NEGATIVE); HEMATOCRIT 49.1 % (42.0-52.0); HEMOGLOBIN 16.4 g/dl (13.5-17.5); KETONE, URINE AUTO NEGATIVE (NEGATIVE); LEUKOCYTE ESTERASE, URINE AUTO NEGATIVE (NEGATIVE); MEAN CORPUSCULAR HEMOGLOBIN 32.2 pg (27.0-33.0); MEAN CORPUSCULAR HGB CONC 33.4 g/dl (32.0-36.5); MEAN CORPUSCULAR VOLUME 96.3 fl (80.0-96.0); MUCUS, URINE SMALL (NEGATIVE); NITRITE, URINE AUTO NEGATIVE (NEGATIVE); PLATELET COUNT, AUTOMATED 248 10^3/uL (150-450); PROTEIN, URINE AUTO NEGATIVE (NEGATIVE); RBC, URINE AUTO 0 /HPF (0-3); SPECIFIC GRAVITY URINE AUTO 1.019 (1.002-1.035); SQUAMOUS EPITHELIAL CELL UR AU 0 /HPF (0-6); UROBILINOGEN, URINE AUTO 0.2 mg/dL (0.0-2.0); WBC, URINE AUTO 1 /HPF (0-3); WHITE BLOOD COUNT 5.6 10^3/uL (4.0-10.0)
[2021-04-24 11:35] LABS: INR 0.95; PROTHROMBIN TIME 13.1 SECONDS (12.7-14.5)
[2021-04-24 11:36] LABS: PARTIAL THROMBOPLASTIN TIME 32.2 SECONDS (25.9-37.0)
[2021-04-24 11:54] LABS: BLOOD UREA NITROGEN 23 MG/DL (7-18); CALCIUM LEVEL 9.6 MG/DL (8.8-10.2); CARBON DIOXIDE LEVEL 32 MEQ/L (21-32); CHLORIDE LEVEL 105 MEQ/L (98-107); CREATININE FOR GFR 1.06 MG/DL (0.70-1.30); GLOMERULAR FILTRATION RATE > 60.0 (>49); GLUCOSE, FASTING 133 MG/DL (70-100); POTASSIUM SERUM 4.4 MEQ/L (3.5-5.1); SODIUM LEVEL 142 MEQ/L (136-145)
== END ==
LOC: M PLALAB 08:44
PROVIDERS: ATTEND Nurse Practitioner Women's Health
DX: Z01.818 Encounter for other preprocedural examination (principal); N20.0 Calculus of kidney

== ENCOUNTER 2021-04-27 06:03 | Day surgery (SDC) | payer MEDICARE ==
[~2021-04-27] VITALS: Ht 179.3 cm; Wt 103.1 kg
[~2021-04-27 06:03] MED LIST changes: +CEFD1CAP8 PO; -CEFD300C41 PO; +LIDOCAINE 1% MDV 20ML VIAL SQ PRN; +LR 1,000 ML IV ONE; +ceFAZolin SOD 2 GM in IV 1 EA IV ONE
[2021-04-27] MEDS ORDERED: MIDAZOLAM INJ 2MG/2ML VIAL (J2250 PER 1MG) As Ordered ONE (07:42)
[2021-04-27] MEDS ORDERED: ETOMIDATE INJ 20MG/10ML VIAL As Ordered ONE (07:42)
[2021-04-27] MEDS ORDERED: fentaNYL 100 MCG/2 ML INJECTION (J3010) As Ordered ONE (07:42)
[2021-04-27] MEDS ORDERED: propofoL 200 MG/20 ML VIAL As Ordered ONE ×2 (07:42→08:02)
[2021-04-27] MEDS ORDERED: ePHEDrine SULFATE 25 MG/5 ML(5MG/ML) SYRINGE As Ordered ONE (07:50)
[2021-04-27] MEDS ORDERED: ONDANSETRON 4MG/2ML VIAL As Ordered ONE (07:53)
[2021-04-27] MEDS ORDERED: FLOM0.4C39 PO (08:07)
--- NOTE | 2021-04-27 08:24 | REP ---
INDICATION: KUB BEFORE SDC COMPARISON: 04/04/2021 TECHNIQUE: Supine view of the abdomen and pelvis. FINDINGS: Current examination demonstrates innumerable bilateral nephroliths. Calcification in the left hemipelvis is stable and consistent with phlebolith. Bowel gas pattern is nonspecific. No organomegaly. No foreign body. Skeletal structures are intact/stable. IMPRESSION: Bilateral nephrolithiasis <Electronically signed by Saud Farrell > 04/27/21 [id number]
[2021-04-27 09:05] VITALS: BP 135/75
--- NOTE | 2021-04-27 09:36 | RO ---
OPERATIVE NOTE DATE OF OPERATION: 04/27/2021 PREOPERATIVE DIAGNOSIS: Left kidney stone. POSTOPERATIVE DIAGNOSIS: Left kidney stone. PROCEDURE: Left extracorporeal shock wave lithotripsy. SURGEON: John Hernandez MD MECHANICAL ENGINEERING MANAGER: None. ANESTHESIA: MAC. OPERATIVE INDICATIONS: This is a 71-year-old male who was found to have an approximately 6-7 mm mid to lower pole left kidney stone. He is brought to the operating room today for treatment. DESCRIPTION OF PROCEDURE: The patient was brought to the operating room and MAC anesthesia was administered. Prophylactic antibiotics were infused. He was placed in supine position in preparation for left-sided extracorporeal shock wave lithotripsy. Fluoroscopy and ultrasonography were utilized to monitor stone position and fragmentation throughout the procedure. Shock waves were then delivered to the left-sided kidney stone ungated. There were no arrhythmias. The stone did appear to fragment very well. After 2500 shocks the procedure was concluded. The patient was then awakened from anesthesia and transported to the recovery room in stable condition. ESTIMATED BLOOD LOSS: 5 mL. COMPLICATIONS: None. SPECIMEN: None. PLAN: The patient will follow up in urology clinic in a few weeks for postoperative visit. We will get a KUB prior to assess for residual stone burden. BROOK
== END 2021-04-27 09:05 | disposition home or self-care (01) ==
LOC: M SDC 06:03
PROVIDERS: ATTEND Urology
DX: N20.0 Calculus of kidney (principal); J45.909 Unspecified asthma, uncomplicated; M10.9 Gout, unspecified; K21.9 Gastro-esophageal reflux disease without esophagitis; Z91.041 Radiographic dye allergy status; Z91.013 Allergy to seafood; Z79.82 Long term (current) use of aspirin; Z79.899 Other long term (current) drug therapy; Z79.51 Long term (current) use of inhaled steroids; Z85.46 Personal history of malignant neoplasm of prostate
CPT/HCPCS: 50590; 74018; J0690; J2250; J2405; J3010

== ENCOUNTER → 2021-05-16 | Outpatient (CLI) | payer MEDICARE ==
[~2021-05-16] MED LIST changes: -LIDOCAINE 1% MDV 20ML VIAL SQ PRN; -LR 1,000 ML IV ONE; -ceFAZolin SOD 2 GM in IV 1 EA IV ONE
== END ==
LOC: M PLALAB 09:21
PROVIDERS: ATTEND Urology
DX: C61 Malignant neoplasm of prostate (principal)

== ENCOUNTER → 2021-05-16 | Outpatient (CLI) | payer MEDICARE ==
--- NOTE | 2021-05-16 10:19 | REP ---
INDICATION: CALCULUS OF KIDNEY. COMPARISON: 04/27/2021 FINDINGS: KUB shows the intestinal gas pattern to be nonspecific. There is no evidence of free intraperitoneal air. Once again, there are numerous bilateral calcifications superimposed over each nephric silhouette. IMPRESSION: Nonspecific. No evidence of significant change <Electronically signed by Dayo Buckner > 05/16/21 1016
== END ==
LOC: M PLAIMG 09:23
PROVIDERS: ATTEND Nurse Practitioner Women's Health
DX: N20.0 Calculus of kidney (principal)

== ENCOUNTER → 2021-08-14 | Outpatient (CLI) | payer MEDICARE ==
[~2021-08-14] MED LIST changes: -CEFD1CAP8 PO; +CEFD300C41 PO
== END ==
LOC: M PLALAB 07:43
PROVIDERS: ATTEND Urology
DX: C61 Malignant neoplasm of prostate (principal)

== ENCOUNTER → 2021-11-17 | Outpatient (CLI) | payer MEDICARE | LOC: M PLALAB 08:22 | PROVIDERS: ATTEND Urology | DX: C61 Malignant neoplasm of prostate (principal) ==

== ENCOUNTER → 2022-05-15 | Outpatient (CLI) | payer MEDICARE | LOC: M PLALAB 14:28 | PROVIDERS: ATTEND Urology | DX: C61 Malignant neoplasm of prostate (principal) ==

== ENCOUNTER → 2022-05-30 | Outpatient (CLI) | payer MEDICARE ==
[~2022-05-30] MED LIST changes: +LISI5TAB11 PO; +PRED5TA PO; +ZYTI250T PO
[2022-05-30 16:47] LABS: ALBUMIN 3.9 G/DL (3.2-5.2); ALKALINE PHOSPHATASE 94 U/L (46-116); ALT/SGPT 25 U/L (7.0-40); AST/SGOT 20 U/L (<34); BILIRUBIN,TOTAL 0.4 MG/DL (0.3-1.2); BLOOD UREA NITROGEN 20 MG/DL (9-23); CALCIUM LEVEL 9.1 MG/DL (8.3-10.6); CARBON DIOXIDE LEVEL 29 MMOL/L (20-31); CHLORIDE LEVEL 101 MMOL/L (98-107); CREATININE FOR GFR 0.84 MG/DL (0.70-1.30); GLOMERULAR FILTRATION RATE > 60.0 (>42); GLUCOSE, FASTING 105 MG/DL (74-106); POTASSIUM SERUM 4.1 MMOL/L (3.5-5.1); SODIUM LEVEL 138 MMOL/L (136-145); TOTAL PROTEIN 6.8 G/DL (5.7-8.2)
== END ==
LOC: M ONCR 15:00
PROVIDERS: ATTEND General Practice
DX: C61 Malignant neoplasm of prostate (principal); J45.909 Unspecified asthma, uncomplicated; K21.9 Gastro-esophageal reflux disease without esophagitis; K44.9 Diaphragmatic hernia without obstruction or gangrene; Z79.51 Long term (current) use of inhaled steroids; Z79.818 Long term (current) use of other agents affecting estrogen receptors and estrogen levels; Z79.899 Other long term (current) drug therapy; Z87.442 Personal history of urinary calculi; Z91.013 Allergy to seafood; Z91.041 Radiographic dye allergy status; Z92.3 Personal history of irradiation
CPT/HCPCS: 36415; 80053; G0463

== ENCOUNTER 2022-06-08 10:21 | Outpatient (RCR) | payer MEDICARE | END 2022-06-12 | LOC: M ONCR 10:21 | PROVIDERS: ATTEND General Practice | DX: C61 Malignant neoplasm of prostate (principal) ==

== ENCOUNTER → 2022-07-10 | Outpatient (RCR) | payer MEDICARE ==
[2022-07-03 10:41] LABS: ALBUMIN 3.6 G/DL (3.2-5.2); ALKALINE PHOSPHATASE 84 U/L (46-116); ALT/SGPT 20 U/L (7.0-40); AST/SGOT 17 U/L (<34); BILIRUBIN,TOTAL 0.9 MG/DL (0.3-1.2); BLOOD UREA NITROGEN 19 MG/DL (9-23); CALCIUM LEVEL 8.8 MG/DL (8.3-10.6); CARBON DIOXIDE LEVEL 28 MMOL/L (20-31); CHLORIDE LEVEL 107 MMOL/L (98-107); CREATININE FOR GFR 0.95 MG/DL (0.70-1.30); GLOMERULAR FILTRATION RATE > 60.0 (>42); GLUCOSE, FASTING 91 MG/DL (74-106); POTASSIUM SERUM 4.1 MMOL/L (3.5-5.1); SODIUM LEVEL 141 MMOL/L (136-145)
== END ==
LOC: M ONCR 06-13 10:43
PROVIDERS: ATTEND General Practice
DX: C61 Malignant neoplasm of prostate (principal)

== ENCOUNTER 2022-08-01 08:36 | Outpatient (RCR) | payer MEDICARE ==
[2022-08-01 10:06] LABS: ALBUMIN 3.7 G/DL (3.2-5.2); ALKALINE PHOSPHATASE 82 U/L (46-116); ALT/SGPT 17 U/L (7.0-40); AST/SGOT 12 U/L (<34); BLOOD UREA NITROGEN 13 MG/DL (9-23); CARBON DIOXIDE LEVEL 30 MMOL/L (20-31); CHLORIDE LEVEL 103 MMOL/L (98-107); CREATININE FOR GFR 0.76 MG/DL (0.70-1.30); GLOMERULAR FILTRATION RATE > 60.0 (>42); GLUCOSE, FASTING 122 MG/DL (74-106); POTASSIUM SERUM 3.8 MMOL/L (3.5-5.1); SODIUM LEVEL 140 MMOL/L (136-145); TOTAL PROTEIN 6.3 G/DL (5.7-8.2)
== END 2022-08-10 ==
LOC: M ONCR 08:36
PROVIDERS: ATTEND General Practice
DX: C61 Malignant neoplasm of prostate (principal)

== ENCOUNTER → 2022-10-31 | Outpatient (CLI) | payer MEDICARE | LOC: M ONCR 09:08 | PROVIDERS: ATTEND General Practice | DX: C61 Malignant neoplasm of prostate (principal); Z71.2 Person consulting for explanation of examination or test findings; R35.1 Nocturia; Z79.52 Long term (current) use of systemic steroids; Z79.899 Other long term (current) drug therapy; Z90.79 Acquired absence of other genital organ(s); Z91.013 Allergy to seafood; Z91.041 Radiographic dye allergy status; Z92.3 Personal history of irradiation ==

== ENCOUNTER → 2023-01-21 | Outpatient (CLI) | payer MEDICARE ==
[2023-01-21 14:14] LABS: PROSTATIC SPECIFIC AG MONITOR 0.05 NG/ML (< 4.00)
[2023-01-21 14:22] LABS: ALBUMIN 3.8 G/DL (3.2-5.2); ALKALINE PHOSPHATASE 101 U/L (46-116); ALT/SGPT 20 U/L (7.0-40); AST/SGOT 9 U/L (<34); BILIRUBIN,TOTAL 0.7 MG/DL (0.3-1.2); BLOOD UREA NITROGEN 21 MG/DL (9-23); CARBON DIOXIDE LEVEL 29 MMOL/L (20-31); CHLORIDE LEVEL 104 MMOL/L (98-107); CREATININE FOR GFR 0.92 MG/DL (0.70-1.30); GLOMERULAR FILTRATION RATE > 60.0 (>42); GLUCOSE, FASTING 103 MG/DL (74-106); POTASSIUM SERUM 4.7 MMOL/L (3.5-5.1); SODIUM LEVEL 140 MMOL/L (136-145); TOTAL PROTEIN 6.1 G/DL (5.7-8.2)
== END ==
LOC: M PLALAB 11:05
PROVIDERS: ATTEND General Practice
DX: C61 Malignant neoplasm of prostate (principal)

== ENCOUNTER → 2023-01-30 | Outpatient (CLI) | payer MEDICARE | LOC: M ONCR 09:20 | PROVIDERS: ATTEND Radiology Radiation Oncology | DX: C61 Malignant neoplasm of prostate (principal); Z71.2 Person consulting for explanation of examination or test findings; Z79.51 Long term (current) use of inhaled steroids; Z79.52 Long term (current) use of systemic steroids; Z79.818 Long term (current) use of other agents affecting estrogen receptors and estrogen levels; Z79.899 Other long term (current) drug therapy; Z91.013 Allergy to seafood; Z91.041 Radiographic dye allergy status; Z92.3 Personal history of irradiation ==

== ENCOUNTER → 2023-03-21 | Outpatient (REF) | payer MEDICARE ==
[~2023-03-21] MED LIST changes: -CEFD300C41 PO; +CEFD300C42; +CEFD300C42 PO; +IBUP1TAB6 PO; +TAMS1CAP17 PO
== END ==
LOC: M SMT 17:17
PROVIDERS: ATTEND Urology
DX: Z01.818 Encounter for other preprocedural examination (principal); N20.0 Calculus of kidney; N39.0 Urinary tract infection, site not specified

== ENCOUNTER → 2023-03-24 | Outpatient (CLI) | payer MEDICARE ==
[~2023-03-24] MED LIST changes: -CEFD300C42; -IBUP1TAB6 PO
== END ==
LOC: M RAD 08:15
PROVIDERS: ATTEND Urology
DX: Z01.818 Encounter for other preprocedural examination (principal); N20.0 Calculus of kidney; R00.1 Bradycardia, unspecified

== ENCOUNTER 2023-03-27 09:15 | Day surgery (SDC) | payer MEDICARE ==
[~2023-03-27] VITALS: Ht 180.3 cm; Wt 95.7 kg
[~2023-03-27 09:15] MED LIST changes: +ceFAZolin SOD 2 GM in IV 1 EA IV ONE
[2023-03-27] MEDS ORDERED: propofoL 200 MG/20 ML VIAL As Ordered ONE (09:16)
[2023-03-27] MEDS ORDERED: fentaNYL 100 MCG/2 ML INJECTION As Ordered ONE (09:16)
[2023-03-27] MEDS ORDERED: MIDAZOLAM INJ 2MG/2ML VIAL As Ordered ONE (09:16)
[2023-03-27] MEDS ORDERED: LIDOCAINE 2% 100MG/5ML SDV (FOR ANES.) As Ordered ONE (09:16)
[2023-03-27] MEDS ORDERED: ONDANSETRON 4MG 2ML VIAL As Ordered ONE (09:17)
[2023-03-27] MEDS ORDERED: KETOROLAC 60MG 2ML VIAL As Ordered ONE (09:17)
[2023-03-27] MEDS ORDERED: LR 1,000 ML IV SCH ×2 (09:30→11:25)
[2023-03-27] MEDS ORDERED: CEFD300C42 (09:37)
[2023-03-27] MEDS ORDERED: ISOVUE-300 61% 100ML VIAL As Ordered ONE (09:51)
[2023-03-27] MEDS ORDERED: fentaNYL 100 MCG/2 ML INJECTION IV PRN (11:25)
[2023-03-27] MEDS ORDERED: ONDANSETRON 4MG 2ML VIAL IV PRN (11:25)
[2023-03-27] MEDS ORDERED: HYDROMORPHONE HCL 0.5 MG/ 0.5 ML SYRINGE IV PRN (11:25)
[2023-03-27] MEDS ORDERED: oxyCODONE 5MG TAB PO PRN (11:25)
[2023-03-27] MEDS ORDERED: PERCOCET 5MG/325MG TAB PO PRN (12:05)
[2023-03-27 12:55] VITALS: BP 158/80; TEMP 97.4; O2SAT 97
[2023-03-27] MEDS ORDERED: IBUP1TAB6 PO (20:27)
[2023-04-05 15:08] LABS: CA Oxalate Dihy 10 % (.); Ca Ox Monohydrate 90 % (.); Size 2x1 mm (.)
== END 2023-03-27 13:18 | disposition home or self-care (01) ==
LOC: M SDC 09:15
PROVIDERS: ATTEND Urology
DX: N20.2 Calculus of kidney with calculus of ureter (principal)

== ENCOUNTER 2023-03-27 20:18 | Emergency (ER) | payer MEDICARE ==
[~2023-03-27] VITALS: Ht 177.8 cm; Wt 95.9 kg
[~2023-03-27 20:18] MED LIST changes: +CEFD300C42; -ceFAZolin SOD 2 GM in IV 1 EA IV ONE
[2023-03-27] MEDS ORDERED: IBUP1TAB6 PO (20:27)
[2023-03-27 21:36] LABS: BASO % 0.3 % (0.0-1.0); EOS % 0.1 % (0.0-3.0); HEMOGLOBIN 13.5 g/dl (13.5-17.5); LYMPH # 0.5 10^3/uL (1.5-5.0); LYMPH % 4.5 % (24.0-44.0); MEAN CORPUSCULAR HEMOGLOBIN 32.8 pg (27.0-33.0); MEAN CORPUSCULAR HGB CONC 34.6 g/dl (32.0-36.5); MEAN CORPUSCULAR VOLUME 94.9 fl (80.0-96.0); MONO # 0.6 10^3/uL (0.0-0.8); MONO % 5.7 % (2.0-8.0); NEUTROPHILS # 9.1 10^3/uL (1.5-8.5); PLATELET COUNT, AUTOMATED 330 10^3/uL (150-450); RED BLOOD COUNT 4.11 10^6/uL (4.30-6.10); WHITE BLOOD COUNT 10.2 10^3/uL (4.0-10.0)
[2023-03-27 22:24] VITALS: BP 149/61; TEMP 97.3; O2SAT 98
== END 2023-03-27 22:25 | disposition home or self-care (01) ==
LOC: M ED 20:18
DX: N20.2 Calculus of kidney with calculus of ureter (principal); Z85.46 Personal history of malignant neoplasm of prostate; Z91.041 Radiographic dye allergy status; Z91.013 Allergy to seafood; Z79.899 Other long term (current) drug therapy
CPT/HCPCS: 36415; 76000; 80047; 82365; 85025; 99284; J0690; J1100; J1885; J2250; J2405; J3010

== ENCOUNTER → 2023-03-28 | Outpatient (REF) | payer MEDICARE ==
[~2023-03-28] MED LIST changes: +IBUP1TAB6 PO
[2023-03-28 17:28] LABS: APPEARANCE, URINE HAZY (CLEAR); BACTERIA, URINE AUTO 1+ (NEGATIVE); BILIRUBIN, URINE AUTO NEGATIVE (NEGATIVE); BLOOD, URINE BLOOD 2+ (NEGATIVE); COLOR, URINE AMBER (YELLOW); GLUCOSE, URINE (UA) AUTO NEGATIVE (NEGATIVE); KETONE, URINE AUTO NEGATIVE (NEGATIVE); LEUKOCYTE ESTERASE, URINE AUTO 1+ (NEGATIVE); MUCUS, URINE SMALL (NEGATIVE); NITRITE, URINE AUTO NEGATIVE (NEGATIVE); PROTEIN, URINE AUTO 2+ mg/dL (NEGATIVE); RBC, URINE AUTO 32 /HPF (0-3); SPECIFIC GRAVITY URINE AUTO 1.005 (1.002-1.035); SQUAMOUS EPITHELIAL CELL UR AU 0 /HPF (0-6); UROBILINOGEN, URINE AUTO 0.2 mg/dL (0.0-2.0); WBC, URINE AUTO 6 /HPF (0-3)
== END ==
LOC: M SMT 16:50
PROVIDERS: ATTEND Urology
DX: N39.0 Urinary tract infection, site not specified (principal)

== ENCOUNTER → 2023-04-18 | Outpatient (CLI) | payer MEDICARE ==
[~2023-04-18] MED LIST changes: +ALLO300T2 PO; +CEFD1CAP9; +CEFD1CAP9 PO; -CEFD300C42; -CEFD300C42 PO; +CHLO25TA PO; +IBUP-1022 PO
[2023-04-18 08:56] LABS: HEMATOCRIT 40.7 % (42.0-52.0); HEMOGLOBIN 13.4 g/dl (13.5-17.5); MEAN CORPUSCULAR HEMOGLOBIN 32.3 pg (27.0-33.0); MEAN CORPUSCULAR HGB CONC 32.9 g/dl (32.0-36.5); MEAN CORPUSCULAR VOLUME 98.1 fl (80.0-96.0); PLATELET COUNT, AUTOMATED 224 10^3/uL (150-450); RED BLOOD COUNT 4.15 10^6/uL (4.30-6.10); WHITE BLOOD COUNT 4.5 10^3/uL (4.0-10.0)
[2023-04-18 09:21] LABS: BLOOD UREA NITROGEN 17 MG/DL (9-23); CALCIUM LEVEL 9.3 MG/DL (8.3-10.6); CARBON DIOXIDE LEVEL 31 MMOL/L (20-31); CHLORIDE LEVEL 103 MMOL/L (98-107); CREATININE FOR GFR 0.81 MG/DL (0.70-1.30); GLOMERULAR FILTRATION RATE > 60.0 (>42); GLUCOSE, FASTING 175 MG/DL (74-106); SODIUM LEVEL 141 MMOL/L (136-145)
== END ==
LOC: M LAB 08:16
PROVIDERS: ATTEND Urology
DX: N20.0 Calculus of kidney (principal); Z01.818 Encounter for other preprocedural examination; N39.0 Urinary tract infection, site not specified

== ENCOUNTER 2023-04-24 07:36 | Day surgery (SDC) | payer MEDICARE ==
[~2023-04-24] VITALS: Ht 180.3 cm; Wt 96.6 kg
[~2023-04-24 07:36] MED LIST changes: +ceFAZolin SOD 2 GM in IV 1 EA IV ONE
[2023-04-24] MEDS ORDERED: LR 1,000 ML IV SCH ×2 (07:55→10:55)
[2023-04-24] MEDS ORDERED: propofoL 200 MG/20 ML VIAL As Ordered ONE (08:05)
[2023-04-24] MEDS ORDERED: ONDANSETRON 4MG 2ML VIAL As Ordered ONE (08:05)
[2023-04-24] MEDS ORDERED: fentaNYL 100 MCG/2 ML INJECTION As Ordered ONE (08:05)
[2023-04-24] MEDS ORDERED: MIDAZOLAM INJ 2MG/2ML VIAL As Ordered ONE (08:05)
[2023-04-24] MEDS ORDERED: LIDOCAINE 2% 100MG/5ML SDV (FOR ANES.) As Ordered ONE (08:05)
[2023-04-24] MEDS ORDERED: KETOROLAC 60MG 2ML VIAL As Ordered ONE (08:06)
[2023-04-24] MEDS ORDERED: ACETAMINOPHEN 1000MG 100ML IV BAG As Ordered ONE (08:07)
[2023-04-24] MEDS ORDERED: ISOVUE-300 61% 100ML VIAL As Ordered ONE (08:55)
[2023-04-24] MEDS ORDERED: ONDANSETRON 4MG 2ML VIAL IV PRN (10:55)
[2023-04-24] MEDS ORDERED: oxyCODONE 5MG TAB PO PRN (10:55)
[2023-04-24] MEDS ORDERED: fentaNYL 100 MCG/2 ML INJECTION IV PRN (10:55)
[2023-04-24] MEDS ORDERED: PERCOCET 5MG/325MG TAB PO PRN (11:30)
[2023-04-24 11:39] VITALS: BP 134/93; TEMP 97.7; O2SAT 95
== END 2023-04-24 11:35 | disposition home or self-care (01) ==
LOC: M SDC 07:36
PROVIDERS: ATTEND Urology
DX: N20.0 Calculus of kidney (principal); I10 Essential (primary) hypertension; M10.9 Gout, unspecified; K57.92 Diverticulitis of intestine, part unspecified, without perforation or abscess without bleeding; K21.9 Gastro-esophageal reflux disease without esophagitis; Z85.46 Personal history of malignant neoplasm of prostate; J45.909 Unspecified asthma, uncomplicated; Z92.21 Personal history of antineoplastic chemotherapy; Z79.899 Other long term (current) drug therapy; Z91.041 Radiographic dye allergy status; Z91.013 Allergy to seafood; Z79.51 Long term (current) use of inhaled steroids
CPT/HCPCS: 52356; 76000; 82365; C1769; C1894; C2617; J0131; J0690; J1100; J1885; J2250; J2405; J3010; Q9967

== ENCOUNTER → 2023-04-29 | Outpatient (CLI) | payer MEDICARE ==
[~2023-04-29] MED LIST changes: -ceFAZolin SOD 2 GM in IV 1 EA IV ONE
[2023-04-29 10:28] LABS: PROSTATIC SPECIFIC AG MONITOR 0.04 NG/ML (< 4.00)
[2023-04-29 10:31] LABS: ALBUMIN 3.7 G/DL (3.2-5.2); ALKALINE PHOSPHATASE 100 U/L (46-116); ALT/SGPT 17 U/L (7.0-40); AST/SGOT 9 U/L (<34); BILIRUBIN,TOTAL 0.7 MG/DL (0.3-1.2); BLOOD UREA NITROGEN 18 MG/DL (9-23); CARBON DIOXIDE LEVEL 28 MMOL/L (20-31); CHLORIDE LEVEL 106 MMOL/L (98-107); CREATININE FOR GFR 0.77 MG/DL (0.70-1.30); GLOMERULAR FILTRATION RATE > 60.0 (>42); GLUCOSE, FASTING 120 MG/DL (74-106); POTASSIUM SERUM 4.2 MMOL/L (3.5-5.1); SODIUM LEVEL 142 MMOL/L (136-145); TOTAL PROTEIN 6.2 G/DL (5.7-8.2)
== END ==
LOC: M LAB 09:11
PROVIDERS: ATTEND General Practice
DX: C61 Malignant neoplasm of prostate (principal)

== ENCOUNTER → 2023-05-01 | Outpatient (CLI) | payer MEDICARE | LOC: M ONCR 09:43 | PROVIDERS: ATTEND General Practice | DX: C61 Malignant neoplasm of prostate (principal); Z92.3 Personal history of irradiation; Z71.2 Person consulting for explanation of examination or test findings; Z79.52 Long term (current) use of systemic steroids; Z79.818 Long term (current) use of other agents affecting estrogen receptors and estrogen levels; Z79.899 Other long term (current) drug therapy; Z87.442 Personal history of urinary calculi; Z91.041 Radiographic dye allergy status; Z91.013 Allergy to seafood ==

== ENCOUNTER → 2023-05-21 | Outpatient (CLI) | payer MEDICARE | LOC: M RAD 10:12 | PROVIDERS: ATTEND Urology | DX: N20.0 Calculus of kidney (principal); Z96.0 Presence of urogenital implants ==

== ENCOUNTER → 2023-07-12 | Outpatient (REF) | payer MEDICARE ==
[~2023-07-12] MED LIST changes: -ASPI-161 PO; +ASPI-615 PO
[2023-07-12 21:11] LABS: APPEARANCE, URINE CLEAR (CLEAR); BACTERIA, URINE AUTO NEGATIVE (NEGATIVE); BILIRUBIN, URINE AUTO NEGATIVE (NEGATIVE); BLOOD, URINE BLOOD 2+ (NEGATIVE); COLOR, URINE STRAW (YELLOW); GLUCOSE, URINE (UA) AUTO NEGATIVE (NEGATIVE); KETONE, URINE AUTO NEGATIVE (NEGATIVE); LEUKOCYTE ESTERASE, URINE AUTO NEGATIVE (NEGATIVE); NITRITE, URINE AUTO NEGATIVE (NEGATIVE); PROTEIN, URINE AUTO NEGATIVE (NEGATIVE); RBC, URINE AUTO 2 /HPF (0-3); SPECIFIC GRAVITY URINE AUTO 1.004 (1.002-1.035); SQUAMOUS EPITHELIAL CELL UR AU 0 /HPF (0-6); UROBILINOGEN, URINE AUTO 0.2 mg/dL (0.0-2.0); WBC, URINE AUTO 1 /HPF (0-3)
== END ==
LOC: M SMT 16:45
PROVIDERS: ATTEND Urology
DX: N39.0 Urinary tract infection, site not specified (principal)

== ENCOUNTER → 2023-08-01 | Outpatient (CLI) | payer MEDICARE ==
[~2023-08-01] MED LIST changes: +ABIR500T PO
[2023-08-01 13:14] LABS: BASO % 0.6 % (0.0-1.0); EOS # 0.1 10^3/uL (0.0-0.5); EOS % 1.2 % (0.0-3.0); HEMATOCRIT 41.2 % (42.0-52.0); HEMOGLOBIN 13.9 g/dl (13.5-17.5); LYMPH # 0.4 10^3/uL (1.5-5.0); MEAN CORPUSCULAR HGB CONC 33.7 g/dl (32.0-36.5); MEAN CORPUSCULAR VOLUME 94.7 fl (80.0-96.0); MONO # 0.3 10^3/uL (0.0-0.8); MONO % 5.4 % (2.0-8.0); NEUTROPHILS # 4.2 10^3/uL (1.5-8.5); NEUTROPHILS % 84.2 % (36.0-66.0); PLATELET COUNT, AUTOMATED 258 10^3/uL (150-450); RED BLOOD COUNT 4.35 10^6/uL (4.30-6.10)
[2023-08-01 13:30] LABS: PROSTATIC SPECIFIC AG MONITOR 0.04 NG/ML (< 4.00)
[2023-08-01 13:32] LABS: ALBUMIN 3.8 G/DL (3.2-5.2); ALKALINE PHOSPHATASE 102 U/L (46-116); ALT/SGPT 17 U/L (7.0-40); AST/SGOT 10 U/L (<34); BILIRUBIN,TOTAL 0.6 MG/DL (0.3-1.2); BLOOD UREA NITROGEN 16 MG/DL (9-23); CALCIUM LEVEL 9.5 MG/DL (8.3-10.6); CARBON DIOXIDE LEVEL 28 MMOL/L (20-31); CHLORIDE LEVEL 106 MMOL/L (98-107); CREATININE FOR GFR 0.87 MG/DL (0.70-1.30); GLOMERULAR FILTRATION RATE > 60.0 (>42); GLUCOSE, FASTING 112 MG/DL (74-106); POTASSIUM SERUM 4.2 MMOL/L (3.5-5.1); SODIUM LEVEL 139 MMOL/L (136-145); TOTAL PROTEIN 6.2 G/DL (5.7-8.2)
[2023-08-01 13:40] LABS: TESTOSTERONE < 7 NG/DL (241-827)
== END ==
LOC: M LAB 12:30
PROVIDERS: ATTEND General Practice
DX: C61 Malignant neoplasm of prostate (principal)

== ENCOUNTER → 2023-08-02 | Outpatient (CLI) | payer MEDICARE | LOC: M ONCR 09:14 | PROVIDERS: ATTEND General Practice | DX: C61 Malignant neoplasm of prostate (principal); Z79.51 Long term (current) use of inhaled steroids; Z79.818 Long term (current) use of other agents affecting estrogen receptors and estrogen levels; Z91.041 Radiographic dye allergy status; Z91.013 Allergy to seafood; Z92.3 Personal history of irradiation ==

== ENCOUNTER → 2023-10-30 | Outpatient (CLI) | payer MEDICARE ==
[2023-10-30 12:00] LABS: PROSTATIC SPECIFIC AG MONITOR 0.04 NG/ML (< 4.00)
[2023-10-30 12:03] LABS: ALBUMIN 3.7 G/DL (3.2-5.2); ALKALINE PHOSPHATASE 94 U/L (46-116); ALT/SGPT 17 U/L (7.0-40); AST/SGOT 11 U/L (<34); BILIRUBIN,TOTAL 0.9 MG/DL (0.3-1.2); BLOOD UREA NITROGEN 19 MG/DL (9-23); CALCIUM LEVEL 9.8 MG/DL (8.3-10.6); CARBON DIOXIDE LEVEL 29 MMOL/L (20-31); CHLORIDE LEVEL 107 MMOL/L (98-107); CREATININE FOR GFR 1.01 MG/DL (0.70-1.30); GLOMERULAR FILTRATION RATE > 60.0 (>42); GLUCOSE, FASTING 119 MG/DL (74-106); POTASSIUM SERUM 4.3 MMOL/L (3.5-5.1); SODIUM LEVEL 141 MMOL/L (136-145); TOTAL PROTEIN 6.2 G/DL (5.7-8.2)
[2023-10-30 12:39] LABS: TESTOSTERONE < 7 NG/DL (241-827)
== END ==
LOC: M LAB 10:40
PROVIDERS: ATTEND General Practice
DX: C61 Malignant neoplasm of prostate (principal)

== ENCOUNTER → 2023-11-05 | Outpatient (CLI) | payer MEDICARE | LOC: M ONCR 09:20 | PROVIDERS: ATTEND General Practice | DX: C61 Malignant neoplasm of prostate (principal); Z92.3 Personal history of irradiation; Z79.810 Long term (current) use of selective estrogen receptor modulators (SERMs); Z79.899 Other long term (current) drug therapy; Z91.013 Allergy to seafood; Z91.041 Radiographic dye allergy status ==

== ENCOUNTER → 2023-11-18 | Outpatient (CLI) | payer MEDICARE | LOC: M RAD 17:47 | PROVIDERS: ATTEND Urology | DX: N20.0 Calculus of kidney (principal) ==

== ENCOUNTER → 2024-01-31 | Outpatient (CLI) | payer MEDICARE ==
[2024-01-31 11:49] LABS: PROSTATIC SPECIFIC AG MONITOR 0.04 NG/ML (< 4.00)
[2024-01-31 11:51] LABS: ALBUMIN 3.8 G/DL (3.2-5.2); ALKALINE PHOSPHATASE 97 U/L (46-116); ALT/SGPT 16 U/L (7.0-40); AST/SGOT 10 U/L (<34); BILIRUBIN,TOTAL 0.8 MG/DL (0.3-1.2); BLOOD UREA NITROGEN 17 MG/DL (9-23); CALCIUM LEVEL 9.9 MG/DL (8.3-10.6); CARBON DIOXIDE LEVEL 30 MMOL/L (20-31); CHLORIDE LEVEL 108 MMOL/L (98-107); GLOMERULAR FILTRATION RATE > 60.0 (>42); GLUCOSE, FASTING 106 MG/DL (74-106); POTASSIUM SERUM 4.3 MMOL/L (3.5-5.1); SODIUM LEVEL 142 MMOL/L (136-145); TOTAL PROTEIN 6.4 G/DL (5.7-8.2)
[2024-01-31 11:56] LABS: TESTOSTERONE < 7 NG/DL (241-827)
== END ==
LOC: M LAB 10:44
PROVIDERS: ATTEND General Practice
DX: C61 Malignant neoplasm of prostate (principal)

== ENCOUNTER → 2024-02-05 | Outpatient (CLI) | payer MEDICARE | LOC: M ONCR 09:12 | PROVIDERS: ATTEND General Practice | DX: C61 Malignant neoplasm of prostate (principal); Z92.3 Personal history of irradiation; Z79.52 Long term (current) use of systemic steroids; Z79.818 Long term (current) use of other agents affecting estrogen receptors and estrogen levels; Z79.899 Other long term (current) drug therapy; Z91.013 Allergy to seafood; Z91.041 Radiographic dye allergy status ==

== ENCOUNTER → 2024-04-29 | Outpatient (CLI) | payer MEDICARE ==
[~2024-04-29] MED LIST changes: -POTA10808 PO; +POTA10809 PO
[2024-04-29 12:53] LABS: ALBUMIN 3.7 G/DL (3.2-5.2); ALKALINE PHOSPHATASE 97 U/L (40-129); ALT/SGPT 13 U/L (7.0-40); AST/SGOT 10 U/L (<34); BILIRUBIN,TOTAL 0.8 MG/DL (0.3-1.2); BLOOD UREA NITROGEN 20 MG/DL (9-23); CALCIUM LEVEL 10.1 MG/DL (8.3-10.6); CARBON DIOXIDE LEVEL 32 MMOL/L (20-31); CHLORIDE LEVEL 104 MMOL/L (98-107); CREATININE FOR GFR 0.83 MG/DL (0.70-1.30); GLOMERULAR FILTRATION RATE > 60.0 (>42); GLUCOSE, FASTING 105 MG/DL (74-106); POTASSIUM SERUM 4.5 MMOL/L (3.5-5.1); PROSTATIC SPECIFIC AG MONITOR 0.04 NG/ML (< 4.00); SODIUM LEVEL 141 MMOL/L (136-145); TOTAL PROTEIN 6.8 G/DL (5.7-8.2)
[2024-04-29 12:57] LABS: TESTOSTERONE < 7 NG/DL (241-827)
== END ==
LOC: M LAB 11:56
PROVIDERS: ATTEND General Practice
DX: C61 Malignant neoplasm of prostate (principal)

== ENCOUNTER → 2024-05-08 | Outpatient (CLI) | payer MEDICARE ==
[~2024-05-08] MED LIST changes: +PRED1TABL PO
== END ==
LOC: M ONCR 09:16
PROVIDERS: ATTEND General Practice
DX: C61 Malignant neoplasm of prostate (principal); Z79.899 Other long term (current) drug therapy; Z79.52 Long term (current) use of systemic steroids; Z79.818 Long term (current) use of other agents affecting estrogen receptors and estrogen levels; Z92.3 Personal history of irradiation; Z91.013 Allergy to seafood; Z91.041 Radiographic dye allergy status

== ENCOUNTER → 2024-05-26 | Outpatient (CLI) | payer MEDICARE | LOC: M RAD 09:32 | PROVIDERS: ATTEND Urology | DX: N20.0 Calculus of kidney (principal) ==

== ENCOUNTER → 2024-06-01 | Outpatient (REF) | payer MEDICARE ==
[2024-06-01 17:39] LABS: APPEARANCE, URINE CLEAR (CLEAR); BACTERIA, URINE AUTO NEGATIVE (NEGATIVE); BILIRUBIN, URINE AUTO NEGATIVE (NEGATIVE); BLOOD, URINE BLOOD NEGATIVE (NEGATIVE); COLOR, URINE YELLOW (YELLOW); GLUCOSE, URINE (UA) AUTO NEGATIVE (NEGATIVE); KETONE, URINE AUTO NEGATIVE (NEGATIVE); LEUKOCYTE ESTERASE, URINE AUTO NEGATIVE (NEGATIVE); MUCUS, URINE SMALL (NEGATIVE); NITRITE, URINE AUTO NEGATIVE (NEGATIVE); PROTEIN, URINE AUTO NEGATIVE (NEGATIVE); RBC, URINE AUTO 0 /HPF (0-3); SPECIFIC GRAVITY URINE AUTO 1.012 (1.002-1.035); SQUAMOUS EPITHELIAL CELL UR AU 0 /HPF (0-6); UROBILINOGEN, URINE AUTO 0.2 mg/dL (0.0-2.0); WBC, URINE AUTO 1 /HPF (0-3)
== END ==
LOC: M SMT 17:06
PROVIDERS: ATTEND Urology
DX: R31.0 Gross hematuria (principal)

== ENCOUNTER → 2025-05-03 | Outpatient (CLI) | payer MEDICARE ==
[~2025-05-03] MED LIST changes: -FLOM0.4C39 PO; -IBUP-1022 PO; -IBUP1TAB6 PO; +IBUP600T42 PO; +PRED-1142 PO; -PRED1TABL PO; +SFHIBU600 PO; +TAMS-18 PO
== END ==
LOC: M LAB 09:20
PROVIDERS: ATTEND General Practice
DX: C61 Malignant neoplasm of prostate (principal)

== ENCOUNTER → 2025-05-11 | Outpatient (CLI) | payer MEDICARE | LOC: M ONCR 11:59 | PROVIDERS: ATTEND General Practice | DX: Z08 Encounter for follow-up examination after completed treatment for malignant neoplasm (principal); Z85.46 Personal history of malignant neoplasm of prostate; Z91.041 Radiographic dye allergy status; Z91.013 Allergy to seafood; Z79.818 Long term (current) use of other agents affecting estrogen receptors and estrogen levels; Z79.52 Long term (current) use of systemic steroids; Z79.899 Other long term (current) drug therapy ==